=== PATIENT | female | born 1975 | race Caucasian/White ===

== ENCOUNTER 2017-09-24 15:29 | Inpatient (IN) | payer MEDICAID ==
[~2017-09-24] VITALS: Ht 160 cm; Wt 108.9 kg
[2017-09-24] MEDS ORDERED: NEUR300C (16:09)
[2017-09-24] MEDS ORDERED: DIVA500T3 (16:09)
[2017-09-24] MEDS ORDERED: REME15TA (16:09)
[2017-09-24] MEDS ORDERED: PRAZ1CAP (16:09)
[2017-09-24] MEDS ORDERED: RISP2TAB32 (16:09)
[2017-09-24] MEDS ORDERED: MAALOX 30 ML SUSP *UDC PO PRN (18:00)
[2017-09-24] MEDS ORDERED: MOM 30ML SUSPENSION UDC PO PRN (18:00)
[2017-09-24] MEDS ORDERED: traZODone 50 MG TAB PO PRN (18:00)
[2017-09-24 18:53] VITALS: BP 111/70
[2017-09-24] MEDS ORDERED: LEVO25TA34 PO (19:08)
[2017-09-24] MEDS ORDERED: IPRASOL4 INH (19:08)
[2017-09-24] MEDS ORDERED: FLUT11IN INH (19:08)
[2017-09-24] MEDS ORDERED: NYST1POW9 TOP (19:08)
[2017-09-24] MEDS ORDERED: VITA200015 PO (19:08)
[2017-09-24] MEDS ORDERED: BUDE0.5S6 INH (19:08)
[2017-09-24] MEDS ORDERED: ATOR1TAB19 PO (19:08)
[2017-09-24] MEDS ORDERED: HYDR-3363 PO (19:08)
[2017-09-24] MEDS ORDERED: OMEP20CA3 PO (19:08)
[2017-09-24] MEDS ORDERED: TRAZ-136 PO (19:08)
[2017-09-24] MEDS ORDERED: MONT10TA2 PO (19:08)
[2017-09-24] MEDS ORDERED: LORA10TA2 PO (19:08)
[2017-09-24] MEDS ORDERED: RISP2TAB3 PO (19:11)
[2017-09-24] MEDS ORDERED: DIVA500T3 PO (19:11)
[2017-09-24] MEDS ORDERED: GABA-282 PO (19:11)
[2017-09-24] MEDS ORDERED: PRAZ2CAP PO (19:11)
[2017-09-24] MEDS ORDERED: MIRT15TA3 PO (19:11)
[2017-09-25 06:42] VITALS: BP 116/59
[2017-09-25] MEDS ORDERED: IPRATROPIUM 0.5MG/ALBUTEROL 2.5MG INH SOL UD 3ML (DUONEB)(J7620) NEB PRN (08:15)
--- NOTE | 2017-09-25 08:18 | HPEPDOC ---
[facility] Medical History & Physical Date of Admission Sep 24, 2017 History and Physical PCP: Dr Mono [facility] ATTENDING: Dr. Lawrence Hook HPI: 42yoF transferred from [place] to [facility], transferred to [facility] and [facility] for unspecified depressive disorder, being medically examined today. Pt had reported blood in her stool apparently as per records at [place], however stool was brown and heme negative. Pt states she had some constipation which is now resolved. Patient states that 2 weeks ago she experienced cold symptoms. Patient states during her admission 09/11/17 at [facility] she was treated with Zithromax , she states she completed the course of Zithromax prior to her discharge from that facility. She denies fevers or chills. No chest discomfort. She denies shortness of breath. She denies nasal drainage, sore throat, ear discomfort. She states she has had a persistent cough. This is nonproductive, she denies any sputum. Patient states she takes Depakote and gabapentin for her mood. Denies any fevers, chills, weakness, fatigue, NAVAS, CP, SOB, cough, palpitations, abdominal pain, N/V/D or changes in bowel or bladder habits. PMHx: Schizophrenia Bipolar disorder Psychosis Anxiety Depression History of SI History of recurrent UTI. Seen by [facility] urology in the past Asthma Hypothyroid Edentulous Dyslipidemia GERD Obesity. BMI 42.5 PSHX: Cholecystectomy Hernia repair 2 Right knee surgery 4 2 Hysterectomy SOCHX: Resides in: [facility] Marital Status: Single Kids: 2 Employment: Unemployed Tobacco use: Denies ETOH: Denies Illicit Drugs: Denies IV Drug Use: Denies Tattoos done unprofessionally: Denies FAMHX: Mother: , COPD Father: , unknown Siblings: 2 brothers, 4 sisters Alive, history of depression Children: Alive, depression Unexpected deaths due to medical reasons: None. ROS: As noted in HPI, otherwise 11pt ROS of systems reviewed and remarkable only for LMP NA, hysterectomy. PE: GEN: 42 yo F, appears stated age. Alert and oriented x 3. Does not make eye contact. HEENT: Normocephalic, atraumatic. Pupils are equal, round, and reactive to light. Extraocular movements are intact. No nystagmus appreciated. Sclera are nonicteric. Conjunctiva without injection. Nose midline. Nasal turbinates without bogginess. EACs both patent BL. TMs both visualized and kowalski with good cone of light, no bulging or erythema. No facial asymmetry. Moist mucous membranes. edentulous. Pharynx pink and moist, no cobblestoning. Neck supple, trachea midline. No lymphadenopathy or thyromegaly appreciated. CHEST: Regular rate and rhythm, +S1, +S2 LUNGS: Clear to auscultation bilaterally. No wheezes are noted at this time. No rales, or rhonchi. Breathing appears symmetric and easy. Patient is speaking in full sentences. No accessory muscle use. ABD: Round, soft, non-tender, non-distended. +Bowel sounds throughout. No rebound or guarding. No costovertebral angle tenderness. EXT: Pulses 2+ bilaterally dorsalis pedis and radial. No lower extremity edema appreciated. SKIN: [place], dry, warm. Capillary refill <2sec. No rashes. NEURO: Alert and oriented x 3. Cranial nerves III-XII are intact. No focal deficits appreciated. [facility]: EKG: SR, poss prior IWMI, 86 bpm. WBC 7.02 Hgb 12.4 Hct 39.1 Plt 273 Gluc 89 BUN 18 SCr 0.77 Na 144. K 4.1 Cl 104 Ca 8.4 AST 20 ALT 25 Toxicology unremarkable UA neg HCG neg OB neg A&P: 42yoF transferred from [facility] for unspecified depressive disorder, 1. Psych. Plan per Psychiatry. EKG on file. 2. Dyslipidemia. Continue Lipitor 10 mg daily. 3. Asthma. Patient with recent URI, she has completed a course of Zithromax. Update CBC/ CMP. Request chest x-ray. Request sputum culture. Patient has been afebrile. O2 sats have been 96-97% since her arrival on room air. She has no wheezing currently. Avoid additional antibiotics at this time. Request Flovent 2 puffs twice a day scheduled, (as per list, patient previously taking as needed). Continue Singulair 10 mg daily. DuoNeb every 4 and every 2 hours as needed. Encourage incentive spirometry. 4. Allergic rhinitis. Continue Claritin 10 mg daily. Add Flonase 2 sprays each nostril daily. 5. Follow up. No Primary Care Provider. Will attempt to establish PCP on discharge. 6. GERD. Continue PPI. 7. Constipation. Continue Colace BID. 8. Borderline EKG. Pt is asymptomatic at this time. Oupt F/U with PCP. 9. Hypothyroid. Continue supplement. Add TSH to labs. 10. Staff member Analilia MCNULTY present throughout exam. Vital Signs Vital Signs Date Time Temp Pulse Resp B/P (MAP) Pulse Ox O2 Delivery O2 Flow Rate FiO2 09/25/17 06:42 97.2 60 14 116/59 (78) Room Air 09/24/17 18:22 96 Home Medications Scheduled (Risperidone) 2 Mg Tab, 2 MG PO BID for . Atorvastatin Calcium (Atorvastatin Calcium) 10 Mg Tab, 10 MG PO DAILY for . HAS NOT FILLED SINCE 08/04/17 Cholecalciferol (Vitamin D) 2,000 Unit Tab, 2,000 UNIT PO DAILY for . Divalproex Sodium (Divalproex Sodium Dr) 500 Mg Tab, 500 MG PO BID for . Gabapentin (Gabapentin) 300 Mg Cap, 300 MG PO TID for . Levothyroxine Sodium (Levoxyl) 25 Mcg Tab, 25 MCG PO DAILY for . HAS NOT FILLED SINCE 08/04/17 Loratadine (Loratadine) 10 Mg Tab, 10 MG PO DAILY for . NEW RX FROM MD ON 09/10/17, PATIENT HAS NOT PICKED UP Mirtazapine (Mirtazapine) 15 Mg Tab, 30 MG PO QHS for . Montelukast Sodium (Montelukast Sodium) 10 Mg Tab, 10 MG PO DAILY for . NEW RX FROM MD ON 09/10/17, PATIENT HAS NOT PICKED UP Omeprazole (Omeprazole) 20 Mg Cap, 20 MG PO DAILY for . HAS NOT FILLED SINCE 08/04/17 Prazosin Hcl (Prazosin HCl) 2 Mg Cap, 2 MG PO QHS for . Scheduled PRN Albuterol/Ipratropium (Ipratropium [place]/Albut 0.5-2.5 (3) mg/3Ml) 1 Latoya Latoya, 1 LATOYA INH QID PRN for SHORTNESS OF BREATH NEW RX FROM MD ON 09/10/17, PATIENT HAS NOT PICKED UP Budesonide (Budesonide) 0.5 Mg/2 Ml Neb, 0.5 MG INH DAILY PRN for SHORTNESS OF BREATH NEW RX FROM MD ON 09/10/17, PATIENT HAS NOT PICKED UP Fluticasone Propionate (Flovent Hfa) 110 Mcg/Act Aer, 2 MCG INH Q12H PRN for SHORTNESS OF BREATH Hydroxyzine HCl (Hydroxyzine HCl) 25 Mg Tab, 25 MG PO BID PRN for ANXIETY Nystatin (Nystatin Powder) 100,000 Unit/Gm Pow, 1 DOSE TOP BID PRN for RASH/ ITCHING Trazodone HCl (Trazodone HCl) 100 Mg Tab, 100 MG PO DAILY PRN for SLEEP Allergies Coded Allergies: Penicillins (Verified Allergy, Intermediate, rash, 09/24/17) Ewelina Workman Sep 25, 2017 08:18
[2017-09-25] MEDS: IPRATROPIUM 0.5MG/ALBUTEROL 2.5MG INH SOL UD 3ML (DUONEB)(J7620) NEB SCH ×4 (09:15→20:00)
--- NOTE | 2017-09-25 09:21 | REP ---
Clinical: Cough . Comparison: None . Technique: PA and lateral. Findings: The mediastinum and cardiac silhouette are normal. The lung osman suggest trace left basilar atelectasis without consolidation, effusion, or pneumothorax. The skeletal structures are intact and normal. Impression: Trace left basilar atelectasis. Signed by Santos Diaz MD 09/25/2017 09:11 A
[2017-09-25 09:46] LABS: MEAN CORPUSCULAR HEMOGLOBIN 30.2 pg (27.0-33.0); MEAN CORPUSCULAR HGB CONC 32.1 g/dl (32.0-36.5); MEAN CORPUSCULAR VOLUME 93.8 fl (80.0-96.0); PLATELET COUNT, AUTOMATED 269 10^3/uL (150-450); RED CELL DISTRIBUTION WIDTH 13.2 % (11.5-14.5)
[2017-09-25] MEDS: ATORVASTATIN 10 MG TAB PO SCH (09:53)
[2017-09-25] MEDS: VITAMIN D 1,000 INTERNATIONAL UNITS TABLET PO SCH (09:53)
[2017-09-25] MEDS: LORATADINE 10 MG TAB PO SCH (09:54)
[2017-09-25] MEDS: DOCUSATE SODIUM 100 MG CAP PO SCH ×2 (09:54→21:00)
[2017-09-25] MEDS: OMEPRAZOLE 20 MG CAP PO SCH (09:54)
[2017-09-25] MEDS: MONTELUKAST 10 MG TAB PO SCH (09:54)
[2017-09-25] MEDS: FLUTICASONE HFA 110 MCG 12 GM INHALER (FLOVENT) INH SCH ×2 (09:58→21:00)
[2017-09-25 10:08] LABS: ALBUMIN/GLOBULIN RATIO 0.97 (1.00-1.93); ALKALINE PHOSPHATASE 47 U/L (45-117); ALT/SGPT 45 U/L (12-78); ANION GAP 6 MEQ/L (8-16); AST/SGOT 29 U/L (7-37); BILIRUBIN,TOTAL 0.4 MG/DL (0.2-1.0); BLOOD UREA NITROGEN 18 MG/DL (7-18); CALCIUM LEVEL 8.8 MG/DL (8.5-10.1); CARBON DIOXIDE LEVEL 30 MEQ/L (21-32); CHLORIDE LEVEL 108 MEQ/L (98-107); CREATININE FOR GFR 0.73 MG/DL (0.55-1.02); GLOMERULAR FILTRATION RATE > 60.0 (>58); GLUCOSE, FASTING 121 MG/DL (70-105); POTASSIUM SERUM 4.1 MEQ/L (3.5-5.1); SODIUM LEVEL 144 MEQ/L (136-145); TOTAL PROTEIN 6.1 GM/DL (6.4-8.2)
[2017-09-25] MEDS ORDERED: hydrOXYzine 25 MG TAB PO PRN (10:45)
--- NOTE | 2017-09-25 11:07 | MHHPE ---
DATE OF ADMISSION: 09/24/2017 LEGAL STATUS AT ADMISSION: 9.39 legal status. CHIEF COMPLAINT: "I've been feeling very depressed, and I have suicidal thoughts." HISTORY OF PRESENT ILLNESS: 42 years old, female, with history of depression and learning disabilities, admitted to our unit on a 9.39 legal status. According to the record, the patient was transferred from [facility] after she was evaluated there and needed psychiatric admission. They had no beds. The patient reports during admission that has been feeling depressed with frequent suicidal ideation, low energy, insomnia, very anxious and distressed. The patient says that she was discharged from [facility] on September 22. Says that she went to stay with a "supposed to be friend" but then "When I arrived there, they told me that the CPS worker was not going to allow me to stay there." Apparently, she threatened to kill herself in front of a baby. During the interview, there is no evidence of psychotic symptoms. No auditory or visual hallucinations or delusions. The patient says that has been admitted quite a few times and that she is getting in and out of the hospital because of the suicidal thoughts. The patient is on Neurontin 300 mg by mouth three times a day, Depakote 500 mg by mouth twice a day, Remeron 30 mg by mouth nightly, Risperdal 2 mg by mouth twice a day, prazosin 2 mg by mouth nightly, trazodone 100 mg by mouth nightly as needed for insomnia, and hydroxyzine 25 mg by mouth twice a day as needed for anxiety. PAST MEDICAL HISTORY: The patient has been diagnosed of hypothyroidism, asthma, dyslipidemia, gastroesophageal reflux disease (GERD), and recurrent urinary tract infection (UTI). PAST PSYCHIATRIC HISTORY: As above. The patient has been diagnosed of depression and learning disabilities. She was in a special education. FAMILY HISTORY: The patient reports her sister and daughter have depression. SUBSTANCE ABUSE HISTORY: The patient denies any current or past problems with drugs or alcohol. SOCIAL HISTORY: The patient was raised by her aunt since her parents were in residential in and out. The patient denies any abuse or neglect during childhood. The patient was in special education. Says "I was a slow learner." She was never tested for intelligence quotient (IQ). The patient is on Supplemental Security Income (SSI) and is currently homeless. PSYCHIATRIC REVIEW OF SYSTEMS: Bipolar disorder/kaya: No evidence of destructibility, grandiosity, flight of ideas, or pressured speech. Substance abuse disorder: The cut down, annoyance, guilt, eyeopener (CAGE) questionnaire is negative. Anxiety disorder: The patient has anxiety but denies panic, agoraphobia, obsessive-compulsive disorder (OCD), washing hands repeatedly, or checking things over and over. Somatization disorder: Screening for pain, conversion, gastrointestinal (GI), or sexual symptoms is negative. Eating disorder: Screening for dieting, use of laxatives, eating in binges is negative. Cognitive disorder: The patient is a "slow learner." Psychotic disorder: No evidence of delusions, paranoia, grandiosity, or rastafari preoccupation. No hallucination. No looseness of associations. PHYSICAL EXAMINATION: As per physician assistant business manager. LABORATORIES AT ADMISSION: Her CBC showed RBC of 3.88 and hemoglobin of 11.7. The rest within normal limits. CMP is unremarkable except total protein is 6.1, albumin is 3.0. MENTAL STATUS EXAMINATION: The patient is dressed in [facility]. The patient is calm and cooperative. Her speech is soft and monotone. Has poor eye contact. Mood is depressed and anxious. Affect is blunted and restricted. The patient is oriented to time, place, person, and situation. Maintains attention and concentration correctly. Instant recall, recent and remote memory are intact. Thought processes are coherent, logical, and goal-directed. The patient does not have auditory or visual hallucination. The patient does not have paranoid, persecutory, somatic, grandiose, or rastafari delusions. The patient denies homicidal ideations. Reports intermittent suicidal thought. Judgment and insight are limited. DIAGNOSES: [place] I: Unspecified depressive disorder. Rule out major depression. [place] II: Learning disability. [place] III: Hypothyroidism. Asthma. Dyslipidemia. Gastroesophageal reflux disease (GERD). Recurrent urinary tract infection (UTI). INITIAL TREATMENT PLAN: The patient was admitted on a 9.39 legal status. Complete history was obtained. With her permission, family will be contacted, and database will be expanded. Her medication regimen will be reviewed and changed accordingly. She will be treated with individual, group, and milieu therapies. She will also receive supportive psychoeducation. Discharge planning will commence immediately. Length of stay will be between 5 and 7 days. Outpatient followup will be strongly recommended. The treatment plan will focus initially on depression and risk for suicide.
[2017-09-25] MEDS: FLUTICASONE PROP 0.05% NASAL SPRAY 16 GM (FLONASE) SCH (11:33)
[2017-09-25] MEDS: LEVOTHYROXINE 25MCG TABLET (0.025MG) PO SCH (11:33)
[2017-09-25] MEDS: risperiDONE 1 MG TAB PO SCH ×2 (11:34→21:00)
[2017-09-25] MEDS: GABAPENTIN 300 MG CAP PO SCH ×3 (11:34→21:00)
[2017-09-25] MEDS: lamoTRIgine 25 MG TAB PO SCH ×2 (11:35→21:00)
[2017-09-25] MEDS: traZODone 100 MG TAB PO SCH (21:00)
[2017-09-25] MEDS: MIRTAZAPINE 15 MG TAB PO SCH (21:00)
[2017-09-25] MEDS: PRAZOSIN 1 MG CAP PO SCH (21:00)
[2017-09-25 21:16] VITALS: BP 118/75
[2017-09-26] MEDS: LEVOTHYROXINE 25MCG TABLET (0.025MG) PO SCH (05:44)
--- NOTE | 2017-09-26 08:34 | IPNPDOC ---
Date Seen The patient was seen on 09/26/17. Progress Note PCP: Dr Mono CROWDER ATTENDING: Dr. Lawrence Hook HPI: 42yoF transferred from [place] to [facility], transferred to [facility] and [facility] for unspecified depressive disorder, being medically examined today. Pt had reported blood in her stool apparently as per records at [place], however stool was brown and heme negative. Pt states she had some constipation which is now resolved. Patient states that 2 weeks ago she experienced cold symptoms. Patient states during her admission 09/11/17 at [facility] she was treated with Zithromax , she states she completed the course of Zithromax prior to her discharge from that facility. She denies fevers or chills. No chest discomfort. She denies shortness of breath. She denies nasal drainage, sore throat, ear discomfort. She states she has had a persistent course cough. This is nonproductive, she denies any sputum. Patient states she takes Depakote and gabapentin for her mood. Denies any fevers, chills, weakness, fatigue, NAVAS, CP, SOB, palpitations, abdominal pain, N/V/D or changes in bowel or bladder habits. PMHx: Schizophrenia Bipolar disorder Psychosis Anxiety Depression History of SI History of recurrent UTI. Seen by [facility] urology in the past Asthma Hypothyroid Edentulous Dyslipidemia GERD Obesity. BMI 42.5 PSHX: Cholecystectomy Hernia repair 2 Right knee surgery 4 2 Hysterectomy PE: GEN: 42 yo F, appears stated age. Alert and oriented x 3. Does not make eye contact. HEENT: Normocephalic, atraumatic. Sclera are nonicteric. Conjunctiva without injection. Nose midline. No facial asymmetry. Moist mucous membranes. edentulous. Pharynx pink and moist. Neck supple, trachea midline. No lymphadenopathy or thyromegaly appreciated. CHEST: Regular rate and rhythm, +S1, +S2 LUNGS: Pt has good A/E. Course cough is noted this AM, rhonchi noted which clear with cough. No wheezes. No rales. Breathing appears symmetric and easy. Patient is speaking in full sentences. No accessory muscle use. ABD: Round, soft, non-tender, non-distended. +Bowel sounds throughout. No rebound or guarding. No costovertebral angle tenderness. EXT: Pulses 2+ bilaterally dorsalis pedis and radial. No lower extremity edema appreciated. SKIN: [place], dry, warm. Capillary refill <2sec. No rashes. NEURO: No focal deficits appreciated. [facility]: EKG: SR, poss prior IWMI, 86 bpm. WBC 7.02 Hgb 12.4 Hct 39.1 Plt 273 Gluc 89 BUN 18 SCr 0.77 Na 144. K 4.1 Cl 104 Ca 8.4 AST 20 ALT 25 Toxicology unremarkable UA neg HCG neg OB neg CXR 09/25/17 Trace left basilar atelectasis. A&P: 42yoF transferred from [facility] for unspecified depressive disorder, 1. Psych. Plan per Psychiatry. EKG on file. 2. Dyslipidemia. Continue Lipitor 10 mg daily. 3. Asthma. Patient with recent URI, Pt states she has completed a course of Zithromax. CBC/CMP 09/25 no leukocytosis. chest x-ray 09/25 as above. Sputum culture not yet obtained. Pt is refusing VS this AM, Tmax 100.3 last PM. 2/4 nebs completed yesterday. Refused 1/2 doses of Flovent. O2 sats have been 96-97% since her arrival on room air. Request Flovent 2 puffs twice a day scheduled, (as per list, patient previously taking as needed). Encourage compliance. Continue Singulair 10 mg daily. DuoNeb every 4 and every 2 hours as needed. Encourage incentive spirometry. Request Respiratory panel. Update labs in AM. Add Doxycycline 100mg po BID x 10 days. (PCN allergic). 4. Allergic rhinitis. Continue Claritin 10 mg daily. Add Flonase 2 sprays each nostril daily. 5. Follow up. No Primary Care Provider. Will attempt to establish PCP on discharge. 6. GERD. Continue PPI. 7. Constipation. Continue Colace BID. 8. Borderline EKG. Pt is asymptomatic at this time. Oupt F/U with PCP. 9. Hypothyroid. Continue supplement. TSH WNL. 10. Staff member Hermelindo present throughout exam. VS, I&O, 24H, Fishbone Vital Signs/I&O Vital Signs Date Time Temp Pulse Resp B/P (MAP) Pulse Ox O2 Delivery O2 Flow Rate FiO2 09/25/17 21:16 100.3 93 16 118/75 (89) 09/25/17 06:42 Room Air 09/24/17 18:22 96 Laboratory Data 24H LABS Laboratory Tests 2 09/25/17 09:21: Nucleated Red Blood Cells % (auto) 0.0, Anion Gap 6L, Glomerular Filtration Rate > 60.0, Blood Urea Nitrogen 18, Creatinine 0.73, Sodium Level 144, Potassium Level 4.1, Chloride Level 108H, Carbon Dioxide Level 30, Calcium Level 8.8, Aspartate Amino Transf (AST/SGOT) 29, Alanine Aminotransferase (ALT/ SGPT) 45, Alkaline Phosphatase 47, Total Bilirubin 0.4, Total Protein 6.1L, Albumin 3.0L, Albumin/Globulin Ratio 0.97L, Thyroid Stimulating Hormone (TSH) 2.630 CBC/BMP Laboratory Tests 09/25/17 09:21 Red Blood Count 3.88 L, Mean Corpuscular Volume 93.8, Mean Corpuscular Hemoglobin 30.2, Mean Corpuscular Hemoglobin Concent 32.1, Red Cell Distribution Width 13.2, Calcium Level 8.8, Aspartate Amino Transf (AST/SGOT) 29 , Alanine Aminotransferase (ALT/SGPT) 45, Alkaline Phosphatase 47, Total Bilirubin 0.4, Total Protein 6.1 L, Albumin 3.0 L Ewelina Workman Sep 26, 2017 08:34
[2017-09-26] MEDS: MONTELUKAST 10 MG TAB PO SCH (08:42)
[2017-09-26] MEDS: FLUTICASONE PROP 0.05% NASAL SPRAY 16 GM (FLONASE) SCH (08:42)
[2017-09-26] MEDS: GABAPENTIN 300 MG CAP PO SCH ×3 (08:42→22:01)
[2017-09-26] MEDS: LORATADINE 10 MG TAB PO SCH (08:42)
[2017-09-26] MEDS: DOCUSATE SODIUM 100 MG CAP PO SCH ×2 (08:42→22:01)
[2017-09-26] MEDS: VITAMIN D 1,000 INTERNATIONAL UNITS TABLET PO SCH (08:42)
[2017-09-26] MEDS: ATORVASTATIN 10 MG TAB PO SCH (08:42)
[2017-09-26] MEDS: lamoTRIgine 25 MG TAB PO SCH ×2 (08:42→22:01)
[2017-09-26] MEDS: risperiDONE 1 MG TAB PO SCH ×2 (08:42→22:01)
[2017-09-26] MEDS: OMEPRAZOLE 20 MG CAP PO SCH (08:42)
[2017-09-26] MEDS: FLUTICASONE HFA 110 MCG 12 GM INHALER (FLOVENT) INH SCH ×2 (08:43→22:02)
[2017-09-26] MEDS: DOXYCYCLINE HYCLATE 100 MG TAB PO SCH ×2 (09:33→22:01)
[2017-09-26] MEDS: IPRATROPIUM 0.5MG/ALBUTEROL 2.5MG INH SOL UD 3ML (DUONEB)(J7620) NEB SCH ×4 (09:46→19:53)
--- NOTE | 2017-09-26 15:28 | MHIPN ---
DATE: 09/26/2017 HISTORY: A 42-year-old female with a history of depression and learning disability, admitted for depression and suicidal ideation. MEDICATIONS: - Remeron 30 mg by mouth at bedtime - prazosin 2 mg by mouth at bedtime - trazodone 100 mg by mouth at bedtime - Neurontin 300 mg by mouth three times a day - Risperdal 1 mg by mouth twice a day - Lamictal 25 mg by mouth twice a day SUBJECTIVE: "I'm feeling better." OBJECTIVE: Patient has somewhat improved from yesterday. Patient is interacting with other patients and staff and going to the psychotherapeutic activities. There is no evidence of psychotic symptoms. No auditory or visual hallucinations or delusions. MENTAL STATUS EXAMINATION: Patient dressed in [facility]. Patient is cooperative. Patient continues depressed and anxious but improved from admission. No evidence of delusions. No hallucinations. Memory, attention, and concentration are fair in the context of a learning disability. Insight and judgment are limited. ASSESSMENT: 1. Depression. 2. Suicidal ideation. 3. Learning disability. PLAN: 1. Continue with Remeron 30 mg by mouth by mouth at bedtime. 2. Prazosin 2 mg by mouth at bedtime. 3. Trazodone 100 mg by mouth at bedtime. 4. Neurontin 300 mg by mouth three times a day. 5. Risperdal 1 mg by mouth twice a day. 6. Lamictal 25 mg by mouth twice a day.
[2017-09-26 18:00] VITALS: BP 107/58
[2017-09-26] MEDS: MIRTAZAPINE 15 MG TAB PO SCH (22:01)
[2017-09-26] MEDS: traZODone 100 MG TAB PO SCH (22:01)
[2017-09-26] MEDS: PRAZOSIN 1 MG CAP PO SCH (22:02)
[2017-09-27] MEDS: LEVOTHYROXINE 25MCG TABLET (0.025MG) PO SCH (06:19)
[2017-09-27 06:44] LABS: MEAN CORPUSCULAR HEMOGLOBIN 30.1 pg (27.0-33.0); MEAN CORPUSCULAR HGB CONC 32.1 g/dl (32.0-36.5); MEAN CORPUSCULAR VOLUME 93.5 fl (80.0-96.0); PLATELET COUNT, AUTOMATED 274 10^3/uL (150-450); RED CELL DISTRIBUTION WIDTH 13.2 % (11.5-14.5); WHITE BLOOD COUNT 7.4 10^3/uL (4.0-10.0)
[2017-09-27 06:49] VITALS: BP 103/53
[2017-09-27 07:21] LABS: ALBUMIN/GLOBULIN RATIO 0.94 (1.00-1.93); ALKALINE PHOSPHATASE 75 U/L (45-117); ALT/SGPT 34 U/L (12-78); ANION GAP 7 MEQ/L (8-16); AST/SGOT 15 U/L (7-37); BILIRUBIN,TOTAL 0.2 MG/DL (0.2-1.0); BLOOD UREA NITROGEN 14 MG/DL (7-18); CALCIUM LEVEL 8.3 MG/DL (8.5-10.1); CARBON DIOXIDE LEVEL 29 MEQ/L (21-32); CHLORIDE LEVEL 111 MEQ/L (98-107); CREATININE FOR GFR 0.66 MG/DL (0.55-1.02); GLOMERULAR FILTRATION RATE > 60.0 (>58); GLUCOSE, FASTING 123 MG/DL (70-105); POTASSIUM SERUM 3.9 MEQ/L (3.5-5.1); SODIUM LEVEL 147 MEQ/L (136-145); TOTAL PROTEIN 6.2 GM/DL (6.4-8.2)
[2017-09-27] MEDS: IPRATROPIUM 0.5MG/ALBUTEROL 2.5MG INH SOL UD 3ML (DUONEB)(J7620) NEB SCH ×4 (07:52→20:00)
[2017-09-27] MEDS: DOCUSATE SODIUM 100 MG CAP PO SCH ×2 (09:16→20:18)
[2017-09-27] MEDS: GABAPENTIN 300 MG CAP PO SCH ×3 (09:16→20:18)
[2017-09-27] MEDS: VITAMIN D 1,000 INTERNATIONAL UNITS TABLET PO SCH (09:16)
[2017-09-27] MEDS: lamoTRIgine 25 MG TAB PO SCH ×2 (09:17→20:19)
[2017-09-27] MEDS: DOXYCYCLINE HYCLATE 100 MG TAB PO SCH ×2 (09:17→20:19)
[2017-09-27] MEDS: LORATADINE 10 MG TAB PO SCH (09:17)
[2017-09-27] MEDS: ATORVASTATIN 10 MG TAB PO SCH (09:17)
[2017-09-27] MEDS: FLUTICASONE HFA 110 MCG 12 GM INHALER (FLOVENT) INH SCH ×2 (09:18→20:18)
[2017-09-27] MEDS: FLUTICASONE PROP 0.05% NASAL SPRAY 16 GM (FLONASE) SCH (09:18)
[2017-09-27] MEDS: MONTELUKAST 10 MG TAB PO SCH (09:27)
[2017-09-27] MEDS: OMEPRAZOLE 20 MG CAP PO SCH (09:28)
[2017-09-27] MEDS: risperiDONE 1 MG TAB PO SCH ×2 (09:28→20:18)
--- NOTE | 2017-09-27 15:19 | MHIPN ---
DATE: 09/27/2017 CHIEF COMPLAINT: Says feels good. SUBJECTIVE: Seen for followup. This is in the presence of staff. Says feels good. Moods are better. She is looking forward to leaving in a couple of days. Says now has a place and looks forward to going there. Moods are better. MENTAL STATUS EXAMINATION: She is lying in bed. She is cooperative. No agitation. No psychomotor retardation. She is coherent. Affect is reactive, fairly broad. Currently denies any suicidal thoughts or intents. There are no overt psychotic features elicited at this point. Judgment and insight fair. ASSESSMENT: 1. Other specified depressive disorder. 2. Learning disability. PLAN: Continue current care and observation. Encourage participate in activities in the unit.
[2017-09-27 18:00] VITALS: BP 104/56
[2017-09-27] MEDS: traZODone 100 MG TAB PO SCH (20:19)
[2017-09-27] MEDS: MIRTAZAPINE 15 MG TAB PO SCH (20:19)
[2017-09-27] MEDS: PRAZOSIN 1 MG CAP PO SCH (20:19)
[2017-09-27] MEDS: ACETAMINOPHEN TAB 650MG DOSE (2X325MG) PO PRN (22:03)
[2017-09-28] MEDS: LEVOTHYROXINE 25MCG TABLET (0.025MG) PO SCH (06:08)
[2017-09-28 06:36] VITALS: BP 110/64
[2017-09-28] MEDS: IPRATROPIUM 0.5MG/ALBUTEROL 2.5MG INH SOL UD 3ML (DUONEB)(J7620) NEB SCH ×4 (08:00→20:00)
[2017-09-28] MEDS: FLUTICASONE PROP 0.05% NASAL SPRAY 16 GM (FLONASE) SCH (09:35)
[2017-09-28] MEDS: FLUTICASONE HFA 110 MCG 12 GM INHALER (FLOVENT) INH SCH ×2 (09:35→21:40)
[2017-09-28] MEDS: MONTELUKAST 10 MG TAB PO SCH (09:36)
[2017-09-28] MEDS: DOCUSATE SODIUM 100 MG CAP PO SCH ×2 (09:36→21:39)
[2017-09-28] MEDS: VITAMIN D 1,000 INTERNATIONAL UNITS TABLET PO SCH (09:36)
[2017-09-28] MEDS: GABAPENTIN 300 MG CAP PO SCH ×3 (09:36→21:39)
[2017-09-28] MEDS: risperiDONE 1 MG TAB PO SCH ×2 (09:36→21:39)
[2017-09-28] MEDS: LORATADINE 10 MG TAB PO SCH (09:36)
[2017-09-28] MEDS: DOXYCYCLINE HYCLATE 100 MG TAB PO SCH ×2 (09:36→21:39)
[2017-09-28] MEDS: OMEPRAZOLE 20 MG CAP PO SCH (09:36)
[2017-09-28] MEDS: lamoTRIgine 25 MG TAB PO SCH ×2 (09:36→21:39)
[2017-09-28] MEDS: ATORVASTATIN 10 MG TAB PO SCH (09:36)
[2017-09-28 18:00] VITALS: BP 100/58
--- NOTE | 2017-09-28 21:11 | MHIPN ---
DATE: 09/28/2017 CHIEF COMPLAINT: Says is okay. SUBJECTIVE: Seen for followup, in the presence of the staff. The patient says she is okay, and is looking forward to being discharged tomorrow, says goes (please clarify). She says had a good night, though had broken sleep. MENTAL STATUS EXAMINATION: She is lying in bed, appears disinterested, answers questions briefly, logically, coherently. Affect is restricted but reactive. No evidence of any thoughts of harming herself or anyone else currently. No evidence of any psychosis. Cognition grossly intact. Judgment and insight fair. ASSESSMENT: Other specified depressive disorder. PLAN: Continue current care. She is hoping to be discharged soon.
[2017-09-28] MEDS: MIRTAZAPINE 15 MG TAB PO SCH (21:39)
[2017-09-28 21:40] VITALS: BP 118/62
[2017-09-28] MEDS: PRAZOSIN 1 MG CAP PO SCH (21:40)
[2017-09-28] MEDS: traZODone 100 MG TAB PO SCH (21:41)
[2017-09-28] MEDS: ACETAMINOPHEN TAB 650MG DOSE (2X325MG) PO PRN (23:43)
[2017-09-29] MEDS: LEVOTHYROXINE 25MCG TABLET (0.025MG) PO SCH (06:19)
[2017-09-29 07:00] VITALS: BP 97/54
[2017-09-29] MEDS: IPRATROPIUM 0.5MG/ALBUTEROL 2.5MG INH SOL UD 3ML (DUONEB)(J7620) NEB SCH ×3 (08:00→16:00)
[2017-09-29] MEDS: FLUTICASONE PROP 0.05% NASAL SPRAY 16 GM (FLONASE) SCH (08:29)
[2017-09-29] MEDS: ATORVASTATIN 10 MG TAB PO SCH (08:30)
[2017-09-29] MEDS: GABAPENTIN 300 MG CAP PO SCH ×2 (08:30→15:33)
[2017-09-29] MEDS: VITAMIN D 1,000 INTERNATIONAL UNITS TABLET PO SCH (08:30)
[2017-09-29] MEDS: lamoTRIgine 25 MG TAB PO SCH (08:30)
[2017-09-29] MEDS: risperiDONE 1 MG TAB PO SCH (08:30)
[2017-09-29] MEDS: FLUTICASONE HFA 110 MCG 12 GM INHALER (FLOVENT) INH SCH (08:30)
[2017-09-29] MEDS: OMEPRAZOLE 20 MG CAP PO SCH (08:30)
[2017-09-29] MEDS: DOCUSATE SODIUM 100 MG CAP PO SCH (08:30)
[2017-09-29] MEDS: MONTELUKAST 10 MG TAB PO SCH (08:30)
[2017-09-29] MEDS: LORATADINE 10 MG TAB PO SCH (08:30)
[2017-09-29] MEDS: DOXYCYCLINE HYCLATE 100 MG TAB PO SCH (08:32)
[2017-09-29] MEDS ORDERED: MIRT15TA3 PO (10:46)
[2017-09-29] MEDS ORDERED: GABA-282 PO (10:46)
[2017-09-29] MEDS ORDERED: RISP1TAB42 PO (10:46)
[2017-09-29] MEDS ORDERED: MINI1CAP PO (10:46)
[2017-09-29] MEDS: ACETAMINOPHEN TAB 650MG DOSE (2X325MG) PO PRN (10:49)
--- NOTE | 2017-09-29 18:22 | MHDS ---
DATE OF ADMISSION: 09/24/2017 DATE OF DISCHARGE: 09/29/2017 LEGAL STATUS AT ADMISSION: 9.39 legal status. HISTORY OF PRESENT ILLNESS: A 42-year-old female with history of depression and learning disabilities, admitted to our unit on a 9.39 legal status. According to the record, the patient was transferred from [facility] after she was evaluated there and in need of psychiatric admission. They had no beds. The patient reports during admission that she has been feeling depressed with frequent suicidal ideation, low energy, insomnia, very anxious, and distressed. The patient says that she was discharged from [facility] on 09/22/2017. She says that she went to live with a "supposed to be friend," but then "when I arrived they told me that CPS worker was not going to allow me to stay there." Apparently, she threatened to kill herself in front of a baby. During the interview, there is no evidence of psychotic symptoms. No auditory or visual hallucinations or delusions. The patient says that she has been admitted quite a few times and that she is getting in-and-out of hospital because of her suicidal thoughts. The patient is on Neurontin 300 mg by mouth three times a day, Depakote 500 mg by mouth twice a day, Remeron 30 mg by mouth at bedtime, Risperdal 2 mg by mouth twice a day, Prazosin 2 mg by mouth at bedtime, trazodone 100 mg by mouth at bedtime as needed for insomnia, and hydroxyzine 25 mg by mouth twice a day as needed for anxiety. LABORATORY DATA AT ADMISSION: Her CBC showed red blood cells of 3.88 and hemoglobin 11.7. CMP was unremarkable, although her total protein was 6.1 and albumin was 3.0. TSH within normal limits. HOSPITAL COURSE: After the first evaluation, the patient was started on Remeron 30 mg by mouth at bedtime, Minipress 2 mg by mouth at bedtime, trazodone 100 mg by mouth at bedtime, Neurontin 300 mg by mouth three times a day, Risperdal 1 mg by mouth twice a day, Lamictal 25 mg by mouth twice a day. With the above medications, the patient was stabilized. Her mood recovered rather quickly. The patient had no complications during this hospital admission. Her medical social consultant/geriatric case manager was contacted. Apparently, the patient has been having problems with placement since when she is placed, she has tendency to leave. At the moment of discharge, the patient has no auditory or visual hallucinations, delusions, suicidal or homicidal ideation. The patient has significantly improved from her depression. The patient says that she has been talking to her ex-boyfriend and they agreed that she will be living with him. The patient says that this a relationship that has been on-and-off for quite a long time. Her ex-boyfriend was contacted and he confirmed the information that the patient was giving us. Therefore, at discharge, the patient is in a stable condition and can be managed as outpatient. MEDICATIONS AT DISCHARGE: - Remeron 30 mg by mouth at bedtime - Minipress 2 mg by mouth at bedtime - trazodone 100 mg by mouth at bedtime - Neurontin 300 mg by mouth three times a day - Risperdal 1 mg by mouth twice a day MENTAL STATUS EXAMINATION AT DISCHARGE: The patient is dressed in [facility]. The patient is calm and cooperative. Her speech is clear, coherent with normal rate and is spontaneous. The patient has good eye contact. Mood is euthymic. Affect is appropriate and congruent with mood. The patient is oriented to time, place, person and situation, maintains attention and concentration correctly Instant recall, recent and remote memory are intact. Thought processes are coherent, logical, and goal-directed. The patient does not have auditory or visual hallucinations. The patient does not have paranoid, persecutory, somatic, grandiose, or sabianist delusions. The patient denies suicidal or homicidal ideation. Insight and judgment are fair. DISCHARGE DIAGNOSES: AXIS I: Adjustment disorder with anxious and depressed mood. AXIS II: Learning disability by history. AXIS III: Hypothyroidism. Asthma. Dyslipidemia. Gastroesophageal reflux disease (GERD). Recurrent urinary tract infection (UTI). INSTRUCTIONS TO THE PATIENT: The patient is to continue taking her medications as prescribed and followup appointments. She is advised to maintain absolute sobriety from drugs and alcohol. The patient has scheduled appointment for medication management, individual psychotherapy, and primary care provider.
== END 2017-09-29 16:15 | disposition home or self-care (01) | DRG 755 ==
LOC: M ED 15:29 → M ED INP 17:52 → M PSY 18:47
PROVIDERS: ADMIT Psychiatry & Neurology Psychiatry; ATTEND Psychiatry & Neurology Psychiatry
DX: F43.23 Adjustment disorder with mixed anxiety and depressed mood (principal); F81.9 Developmental disorder of scholastic skills, unspecified; E03.9 Hypothyroidism, unspecified; J45.909 Unspecified asthma, uncomplicated; E78.5 Hyperlipidemia, unspecified; K21.9 Gastro-esophageal reflux disease without esophagitis; Z59.0 Homelessness; Z81.8 Family history of other mental and behavioral disorders; Z87.440 Personal history of urinary (tract) infections; E66.9 Obesity, unspecified; Z68.41 Body mass index [BMI] 40.0-44.9, adult; K59.00 Constipation, unspecified; Z79.899 Other long term (current) drug therapy; Z88.0 Allergy status to penicillin

== ENCOUNTER 2018-04-25 19:07 | Inpatient (IN) | payer MEDICAID ==
[2018-04-25] MEDS: FUROSEMIDE 40 MG TAB PO (20:15)
[2018-04-25] MEDS ORDERED: MOM 30ML SUSPENSION UDC PO (21:00)
[2018-04-26] MEDS ORDERED: IPRATROPIUM HFA INHALER 12.9 GRAMS (ATROVENT HFA) INH (10:00)
[2018-04-26] MEDS: metFORMIN (GLUCOPHAGE) 500 MG TAB PO ×2 (10:39→17:03)
[2018-04-26] MEDS: FLUoxetine 20 MG CAP PO (10:39)
[2018-04-26] MEDS: FUROSEMIDE 40 MG TAB PO ×2 (10:39→17:03)
[2018-04-26] MEDS: OMEPRAZOLE 20 MG CAP PO (10:39)
[2018-04-26] MEDS: LEVOTHYROXINE 25MCG TABLET (0.025MG) PO (11:33)
[2018-04-26] MEDS: oxyBUTYnin 5 MG TAB PO ×2 (11:33→21:05)
[2018-04-26 11:51] LABS: BEDSIDE GLUCOSE 99 MG/DL (70-105)
[2018-04-26] MEDS: ACETAMINOPHEN TAB 650MG DOSE (2X325MG) PO (13:17)
[2018-04-26 16:59] LABS: BEDSIDE GLUCOSE 101 MG/DL (70-105)
[2018-04-26 21:03] LABS: BEDSIDE GLUCOSE 105 MG/DL (70-105)
[2018-04-26] MEDS: ATORVASTATIN 10 MG TAB PO (21:05)
[2018-04-26] MEDS: PRAZOSIN 1 MG CAP PO (21:05)
[2018-04-27] MEDS: LEVOTHYROXINE 25MCG TABLET (0.025MG) PO (06:06)
[2018-04-27 06:17] LABS: BEDSIDE GLUCOSE 101 MG/DL (70-105)
[2018-04-27] MEDS: oxyBUTYnin 5 MG TAB PO (09:14)
[2018-04-27] MEDS: OMEPRAZOLE 20 MG CAP PO (09:14)
[2018-04-27] MEDS: metFORMIN (GLUCOPHAGE) 500 MG TAB PO ×2 (09:14→18:09)
[2018-04-27] MEDS: FLUoxetine 20 MG CAP PO (09:14)
[2018-04-27] MEDS: FUROSEMIDE 40 MG TAB PO ×2 (09:14→18:08)
[2018-04-27 10:27] LABS: HEMATOCRIT 36.8 % (36.0-47.0); HEMOGLOBIN 12.6 g/dl (12.0-15.5); MEAN CORPUSCULAR HEMOGLOBIN 31.9 pg (27.0-33.0); MEAN CORPUSCULAR HGB CONC 34.2 g/dl (32.0-36.5); MEAN CORPUSCULAR VOLUME 93.2 fl (80.0-96.0); PLATELET COUNT, AUTOMATED 404 10^3/uL (150-450); RED BLOOD COUNT 3.95 10^6/uL (4.00-5.40); RED CELL DISTRIBUTION WIDTH 12.7 % (11.5-14.5); WHITE BLOOD COUNT 7.8 10^3/uL (4.0-10.0)
[2018-04-27 10:44] LABS: ESTIMATED AVERAGE GLUCOSE 137 MG/DL (60-110); HEMOGLOBIN A1c 6.4 %
[2018-04-27 11:00] LABS: ALBUMIN 4.1 GM/DL (3.2-5.2); ALBUMIN/GLOBULIN RATIO 1.37 (1.00-1.93); ALKALINE PHOSPHATASE 80 U/L (45-117); ALT/SGPT 22 U/L (12-78); ANION GAP 8 MEQ/L (8-16); AST/SGOT 23 U/L (7-37); BILIRUBIN,TOTAL 0.3 MG/DL (0.2-1.0); BLOOD UREA NITROGEN 12 MG/DL (7-18); CALCIUM LEVEL 8.9 MG/DL (8.5-10.1); CARBON DIOXIDE LEVEL 27 MEQ/L (21-32); CHLORIDE LEVEL 105 MEQ/L (98-107); CREATININE FOR GFR 0.88 MG/DL (0.55-1.30); GLOMERULAR FILTRATION RATE > 60.0 (>58); GLUCOSE, FASTING 104 MG/DL (70-100); POTASSIUM SERUM 4.1 MEQ/L (3.5-5.1); SODIUM LEVEL 140 MEQ/L (136-145); TOTAL PROTEIN 7.1 GM/DL (6.4-8.2)
[2018-04-27 18:18] LABS: BEDSIDE GLUCOSE 121 MG/DL (70-105)
[2018-04-28] MEDS: ATORVASTATIN 10 MG TAB PO ×2 (00:18→20:35)
[2018-04-28] MEDS: oxyBUTYnin 5 MG TAB PO ×3 (00:18→20:35)
[2018-04-28] MEDS: PRAZOSIN 1 MG CAP PO ×2 (00:25→20:37)
[2018-04-28] MEDS: LEVOTHYROXINE 25MCG TABLET (0.025MG) PO (05:51)
[2018-04-28 06:03] LABS: BEDSIDE GLUCOSE 114 MG/DL (70-105)
[2018-04-28] MEDS: metFORMIN (GLUCOPHAGE) 500 MG TAB PO ×2 (07:38→17:00)
[2018-04-28] MEDS: FUROSEMIDE 40 MG TAB PO ×2 (08:10→17:00)
[2018-04-28] MEDS: OMEPRAZOLE 20 MG CAP PO (08:11)
[2018-04-28] MEDS: FLUoxetine 20 MG CAP PO (08:11)
[2018-04-28 11:58] LABS: BEDSIDE GLUCOSE 93 MG/DL (70-105)
[2018-04-28] MEDS: LOPERAMIDE 2 MG CAP PO ×2 (16:10→19:55)
[2018-04-28 17:17] LABS: BEDSIDE GLUCOSE 100 MG/DL (70-105)
[2018-04-28] MEDS: traZODone 50 MG TAB PO (20:35)
[2018-04-29] MEDS: LEVOTHYROXINE 25MCG TABLET (0.025MG) PO (06:07)
[2018-04-29 06:22] LABS: BEDSIDE GLUCOSE 102 MG/DL (70-105)
[2018-04-29] MEDS: FLUoxetine 20 MG CAP PO (09:00)
[2018-04-29] MEDS: OMEPRAZOLE 20 MG CAP PO (09:00)
[2018-04-29] MEDS: FUROSEMIDE 40 MG TAB PO ×2 (09:00→17:17)
[2018-04-29] MEDS: oxyBUTYnin 5 MG TAB PO ×2 (09:00→20:48)
[2018-04-29] MEDS: metFORMIN (GLUCOPHAGE) 500 MG TAB PO ×2 (09:00→17:17)
[2018-04-29 09:13] LABS: ALBUMIN 3.5 GM/DL (3.2-5.2); ALBUMIN/GLOBULIN RATIO 1.06 (1.00-1.93); ALKALINE PHOSPHATASE 74 U/L (45-117); ALT/SGPT 74 U/L (12-78); ANION GAP 8 MEQ/L (8-16); AST/SGOT 34 U/L (7-37); BLOOD UREA NITROGEN 14 MG/DL (7-18); CALCIUM LEVEL 8.3 MG/DL (8.5-10.1); CARBON DIOXIDE LEVEL 33 MEQ/L (21-32); CHLORIDE LEVEL 99 MEQ/L (98-107); CREATININE FOR GFR 0.82 MG/DL (0.55-1.30); FREE THYROXINE INDEX 4.1 % (1.3-4.8); GLOMERULAR FILTRATION RATE > 60.0 (>58); GLUCOSE, FASTING 91 MG/DL (70-100); POTASSIUM SERUM 3.7 MEQ/L (3.5-5.1); SODIUM LEVEL 140 MEQ/L (136-145); T UPTAKE 37 % (30-39); THYROXINE (T4) 11.1 UG/DL (4.5-12.0); TOTAL PROTEIN 6.8 GM/DL (6.4-8.2)
[2018-04-29 10:58] LABS: HEPATITIS B SURFACE ANTIGEN NEGATIVE (NEGATIVE)
[2018-04-29 11:16] LABS: HEPATITIS B CORE ANTIBODY IGM NEGATIVE (NEGATIVE)
[2018-04-29 11:16] LABS: HEPATITIS C VIRUS ABY INDEX 0.2 INDEX (<0.8)
[2018-04-29 11:18] LABS: HEPATITIS A ANTIBODY IGM NEGATIVE (NEGATIVE)
[2018-04-29 11:56] LABS: BEDSIDE GLUCOSE 102 MG/DL (70-105)
[2018-04-29 17:19] LABS: BEDSIDE GLUCOSE 93 MG/DL (70-105)
[2018-04-29] MEDS: PRAZOSIN 1 MG CAP PO (20:48)
[2018-04-29] MEDS: ATORVASTATIN 10 MG TAB PO (20:48)
[2018-04-29] MEDS: MAALOX 30 ML SUSP *UDC PO (20:48)
[2018-04-29] MEDS: hydrOXYzine 50 MG TAB PO (20:48)
[2018-04-30] MEDS: LEVOTHYROXINE 25MCG TABLET (0.025MG) PO (06:10)
[2018-04-30 06:29] LABS: BEDSIDE GLUCOSE 264 MG/DL (70-105)
[2018-04-30 06:51] LABS: BEDSIDE GLUCOSE 104 MG/DL (70-105)
[2018-04-30] MEDS: OMEPRAZOLE 20 MG CAP PO (08:57)
[2018-04-30] MEDS: metFORMIN (GLUCOPHAGE) 500 MG TAB PO ×2 (08:57→17:25)
[2018-04-30] MEDS: FUROSEMIDE 40 MG TAB PO ×2 (08:57→17:26)
[2018-04-30] MEDS: oxyBUTYnin 5 MG TAB PO ×2 (08:58→20:02)
[2018-04-30] MEDS: FLUoxetine 20 MG CAP PO (08:58)
[2018-04-30] MEDS: ATORVASTATIN 10 MG TAB PO (20:02)
[2018-04-30] MEDS: MAALOX 30 ML SUSP *UDC PO (20:02)
[2018-04-30] MEDS: PRAZOSIN 1 MG CAP PO (20:04)
[2018-05-01] MEDS: LEVOTHYROXINE 25MCG TABLET (0.025MG) PO (06:24)
[2018-05-01 08:14] LABS: BEDSIDE GLUCOSE 108 MG/DL (70-105)
[2018-05-01] MEDS: FUROSEMIDE 40 MG TAB PO (08:15)
[2018-05-01] MEDS: metFORMIN (GLUCOPHAGE) 500 MG TAB PO (08:15)
[2018-05-01] MEDS: oxyBUTYnin 5 MG TAB PO (08:15)
[2018-05-01] MEDS: FLUoxetine 20 MG CAP PO (08:15)
[2018-05-01] MEDS: OMEPRAZOLE 20 MG CAP PO (08:15)
[2018-05-01] MEDS: MAALOX 30 ML SUSP *UDC PO (09:39)
== END 2018-05-01 15:02 | disposition home or self-care (01) | DRG 754 ==
LOC: M PSY 04-26 00:26 → M ED 19:07 → M ED INP 20:48
PROVIDERS: Psychiatry & Neurology Psychiatry
DX: F32.9 Major depressive disorder, single episode, unspecified (principal); Z68.43 Body mass index [BMI] 50.0-59.9, adult; I10 Essential (primary) hypertension; E11.9 Type 2 diabetes mellitus without complications; N32.81 Overactive bladder; F81.9 Developmental disorder of scholastic skills, unspecified; Z87.440 Personal history of urinary (tract) infections; Z91.5 Personal history of self-harm; J45.909 Unspecified asthma, uncomplicated; E03.9 Hypothyroidism, unspecified; E78.5 Hyperlipidemia, unspecified; K21.9 Gastro-esophageal reflux disease without esophagitis; E66.9 Obesity, unspecified; Z90.49 Acquired absence of other specified parts of digestive tract; Z90.710 Acquired absence of both cervix and uterus; Z79.84 Long term (current) use of oral hypoglycemic drugs; Z88.0 Allergy status to penicillin; Z79.899 Other long term (current) drug therapy

== ENCOUNTER 2018-09-27 14:14 | Inpatient (IN) | payer MEDICAID ==
[2018-09-27 14:58] LABS: HEMATOCRIT 37.1 % (36.0-47.0); HEMOGLOBIN 11.5 g/dl (12.0-15.5); MEAN CORPUSCULAR HEMOGLOBIN 29.7 pg (27.0-33.0); MEAN CORPUSCULAR VOLUME 95.9 fl (80.0-96.0); PLATELET COUNT, AUTOMATED 272 10^3/uL (150-450); RED BLOOD COUNT 3.87 10^6/uL (4.00-5.40); RED CELL DISTRIBUTION WIDTH 14.2 % (11.5-14.5); WHITE BLOOD COUNT 9.6 10^3/uL (4.0-10.0)
[2018-09-27 15:18] LABS: AMPHETAMINES LEVEL URINE NEGATIVE (NEGATIVE); BARBITURATES URINE NEGATIVE (NEGATIVE); BENZODIAZEPINES URINE NEGATIVE (NEGATIVE); CANNABINOIDS URINE NEGATIVE (NEGATIVE); COCAINE METABOLITE URINE NEGATIVE (NEGATIVE); METHADONE URINE NEGATIVE (NEGATIVE); OPIATES URINE NEGATIVE (NEGATIVE); PHENCYCLIDINE URINE NEGATIVE (NEGATIVE)
[2018-09-27 15:26] LABS: ACETAMINOPHEN LEVEL < 2.0 UG/ML (10.0-30.0); ALBUMIN 3.4 GM/DL (3.2-5.2); ALBUMIN/GLOBULIN RATIO 1.17 (1.00-1.93); ALKALINE PHOSPHATASE 75 U/L (45-117); ALT/SGPT 27 U/L (12-78); ANION GAP 7 MEQ/L (8-16); AST/SGOT 12 U/L (7-37); BILIRUBIN,DIRECT 0.1 MG/DL (0.0-0.2); BILIRUBIN,TOTAL 0.3 MG/DL (0.2-1.0); BLOOD UREA NITROGEN 9 MG/DL (7-18); CALCIUM LEVEL 8.1 MG/DL (8.5-10.1); CARBON DIOXIDE LEVEL 33 MEQ/L (21-32); CHLORIDE LEVEL 105 MEQ/L (98-107); CREATININE FOR GFR 1.04 MG/DL (0.55-1.30); ETHYL ALCOHOL (ETHANOL) < 0.003 % (0.000-0.010); GLOMERULAR FILTRATION RATE > 60.0 (>58); GLUCOSE, FASTING 85 MG/DL (70-100); SALICYLATE LEVEL < 1.7 MG/DL (5.0-30.0); SODIUM LEVEL 145 MEQ/L (136-145); TOTAL PROTEIN 6.3 GM/DL (6.4-8.2)
[2018-09-27] MEDS ORDERED: LURASIDONE 20 MG TAB (LATUDA) PO (17:00)
[2018-09-27] MEDS: metFORMIN (GLUCOPHAGE) 500 MG TAB PO (17:30)
[2018-09-27] MEDS: FUROSEMIDE 40 MG TAB PO (17:30)
[2018-09-27] MEDS: POTASSIUM CHLORIDE 10 MEQ SR TABLET PO (17:30)
[2018-09-27] MEDS: LURASIDONE HCL 40 MG TAB (LATUDA) PO (17:53)
[2018-09-27] MEDS: VITAMIN D 1,000 INTERNATIONAL UNITS TABLET PO (18:43)
[2018-09-28] MEDS: BUDESONIDE 180MCG INHALER (PULMICORT FLEXHALER) INH ×2 (09:00→21:00)
[2018-09-28] MEDS: TOLTERODINE (DETROL) 2 MG TAB PO ×2 (09:00→21:00)
[2018-09-28] MEDS: VITAMIN D 1,000 INTERNATIONAL UNITS TABLET PO (10:00)
[2018-09-28] MEDS ORDERED: ACETAMINOPHEN TAB 650MG DOSE (2X325MG) PO (12:15)
[2018-09-28] MEDS ORDERED: MAALOX 30 ML SUSP *UDC PO (12:15)
[2018-09-28] MEDS ORDERED: IPRATROPIUM 0.5MG/ALBUTEROL 2.5MG INH SOL UD 3ML (DUONEB)(J7620) NEB ×2 (13:45→14:00)
[2018-09-28] MEDS: COMBIVENT RESPIMAT 100-20MCG INHALER 4GM INH ×2 (14:00→20:00)
[2018-09-28] MEDS ORDERED: COMBIVENT RESPIMAT 100-20MCG INHALER 4GM INH (14:30)
[2018-09-28] MEDS: OMEPRAZOLE 20 MG CAP PO (14:36)
[2018-09-28] MEDS: POTASSIUM CHLORIDE 10 MEQ SR TABLET PO ×2 (14:36→21:00)
[2018-09-28] MEDS: guaiFENesin ER 600 MG TAB PO ×2 (14:36→21:00)
[2018-09-28] MEDS: ASPIRIN 81 MG ENTERIC TAB PO (14:37)
[2018-09-28] MEDS: MONTELUKAST 10 MG TAB PO (14:37)
[2018-09-28] MEDS: LORATADINE 10 MG TAB PO (14:37)
[2018-09-28] MEDS: FUROSEMIDE 40 MG TAB PO (16:31)
[2018-09-28] MEDS: metFORMIN (GLUCOPHAGE) 500 MG TAB PO (17:31)
[2018-09-28] MEDS: LURASIDONE HCL 40 MG TAB (LATUDA) PO (17:32)
[2018-09-28 17:34] LABS: BEDSIDE GLUCOSE 96 MG/DL (70-105)
[2018-09-28] MEDS: LEVOTHYROXINE 25MCG TABLET (0.025MG) PO (17:38)
[2018-09-28] MEDS: NAPROXEN 250 MG TAB PO (21:00)
[2018-09-28] MEDS: ATORVASTATIN 10 MG TAB PO (21:00)
[2018-09-28] MEDS: PRAZOSIN 1 MG CAP PO (21:00)
[2018-09-29] MEDS: COMBIVENT RESPIMAT 100-20MCG INHALER 4GM INH ×4 (02:00→20:45)
[2018-09-29] MEDS: LEVOTHYROXINE 25MCG TABLET (0.025MG) PO (06:52)
[2018-09-29 06:53] LABS: BEDSIDE GLUCOSE 99 MG/DL (70-105)
[2018-09-29] MEDS: VITAMIN D 1,000 INTERNATIONAL UNITS TABLET PO (08:27)
[2018-09-29] MEDS: TOLTERODINE (DETROL) 2 MG TAB PO ×2 (08:27→21:42)
[2018-09-29] MEDS: PYRIDOXINE 50 MG TAB PO (08:28)
[2018-09-29] MEDS: THIAMINE 100 MG TAB PO (08:29)
[2018-09-29] MEDS: metFORMIN (GLUCOPHAGE) 500 MG TAB PO ×2 (08:29→18:00)
[2018-09-29] MEDS: MONTELUKAST 10 MG TAB PO (08:29)
[2018-09-29] MEDS: NAPROXEN 250 MG TAB PO ×2 (08:29→21:45)
[2018-09-29] MEDS: LORATADINE 10 MG TAB PO (08:29)
[2018-09-29] MEDS: FLUoxetine 20 MG CAP PO (08:29)
[2018-09-29] MEDS: ASPIRIN 81 MG ENTERIC TAB PO (08:29)
[2018-09-29] MEDS: guaiFENesin ER 600 MG TAB PO ×2 (08:29→21:45)
[2018-09-29] MEDS: OMEPRAZOLE 20 MG CAP PO (08:29)
[2018-09-29] MEDS: FUROSEMIDE 40 MG TAB PO ×2 (08:30→18:01)
[2018-09-29] MEDS: POTASSIUM CHLORIDE 10 MEQ SR TABLET PO ×2 (08:30→21:44)
[2018-09-29] MEDS: BUDESONIDE 180MCG INHALER (PULMICORT FLEXHALER) INH ×2 (10:36→21:43)
[2018-09-29 11:52] LABS: KETONE, URINE AUTO RFX NEGATIVE (NEGATIVE); LEUKOCYTE ESTERASE UR AUTO RFX NEGATIVE (NEGATIVE); MUCUS, URINE RFX SMALL (NEGATIVE); NITRITE, URINE AUTO RFX NEGATIVE (NEGATIVE); RBC, URINE AUTO RFX 0 /HPF (0-3); SPECIFIC GRAVITY UR AUTO RFX 1.005 (1.002-1.035); SQUAM EPITHELIAL CELL UR AURFX 0 /HPF (0-6); WBC, URINE AUTO RFX 1 /HPF (0-3)
[2018-09-29 16:40] LABS: BEDSIDE GLUCOSE 90 MG/DL (70-105)
[2018-09-29] MEDS: LURASIDONE HCL 40 MG TAB (LATUDA) PO (18:00)
[2018-09-29] MEDS: ATORVASTATIN 10 MG TAB PO (21:43)
[2018-09-29] MEDS: traZODone 50 MG TAB PO (21:45)
[2018-09-29] MEDS: PRAZOSIN 1 MG CAP PO (21:45)
[2018-09-30] MEDS: COMBIVENT RESPIMAT 100-20MCG INHALER 4GM INH ×4 (02:00→20:59)
[2018-09-30] MEDS: LEVOTHYROXINE 25MCG TABLET (0.025MG) PO (06:32)
[2018-09-30 06:38] LABS: BEDSIDE GLUCOSE 102 MG/DL (70-105)
[2018-09-30] MEDS: LORATADINE 10 MG TAB PO (08:32)
[2018-09-30] MEDS: BUDESONIDE 180MCG INHALER (PULMICORT FLEXHALER) INH ×2 (08:32→20:59)
[2018-09-30] MEDS: THIAMINE 100 MG TAB PO (08:33)
[2018-09-30] MEDS: FLUoxetine 20 MG CAP PO (08:33)
[2018-09-30] MEDS: metFORMIN (GLUCOPHAGE) 500 MG TAB PO ×2 (08:33→17:14)
[2018-09-30] MEDS: PYRIDOXINE 50 MG TAB PO (08:33)
[2018-09-30] MEDS: guaiFENesin ER 600 MG TAB PO ×2 (08:33→20:58)
[2018-09-30] MEDS: MONTELUKAST 10 MG TAB PO (08:34)
[2018-09-30] MEDS: POTASSIUM CHLORIDE 10 MEQ SR TABLET PO ×2 (08:34→20:58)
[2018-09-30] MEDS: OMEPRAZOLE 20 MG CAP PO (08:34)
[2018-09-30] MEDS: VITAMIN D 1,000 INTERNATIONAL UNITS TABLET PO (08:35)
[2018-09-30] MEDS: FUROSEMIDE 40 MG TAB PO ×2 (08:35→16:49)
[2018-09-30] MEDS: NAPROXEN 250 MG TAB PO ×2 (08:35→20:57)
[2018-09-30] MEDS: ASPIRIN 81 MG ENTERIC TAB PO (08:35)
[2018-09-30] MEDS: TOLTERODINE (DETROL) 2 MG TAB PO ×2 (08:38→20:58)
[2018-09-30 17:00] LABS: BEDSIDE GLUCOSE 125 MG/DL (70-105)
[2018-09-30] MEDS: LURASIDONE HCL 40 MG TAB (LATUDA) PO (17:15)
[2018-09-30] MEDS: PRAZOSIN 1 MG CAP PO (20:57)
[2018-09-30] MEDS: ATORVASTATIN 10 MG TAB PO (20:58)
[2018-10-01] MEDS: COMBIVENT RESPIMAT 100-20MCG INHALER 4GM INH ×4 (01:33→20:38)
[2018-10-01] MEDS: LEVOTHYROXINE 25MCG TABLET (0.025MG) PO (06:15)
[2018-10-01 06:44] LABS: BEDSIDE GLUCOSE 112 MG/DL (70-105)
[2018-10-01] MEDS: BUDESONIDE 180MCG INHALER (PULMICORT FLEXHALER) INH ×2 (08:18→20:38)
[2018-10-01] MEDS: metFORMIN (GLUCOPHAGE) 500 MG TAB PO ×2 (08:19→15:57)
[2018-10-01] MEDS: PYRIDOXINE 50 MG TAB PO (08:19)
[2018-10-01] MEDS: NAPROXEN 250 MG TAB PO ×2 (08:19→20:36)
[2018-10-01] MEDS: OMEPRAZOLE 20 MG CAP PO (08:19)
[2018-10-01] MEDS: ASPIRIN 81 MG ENTERIC TAB PO (08:20)
[2018-10-01] MEDS: THIAMINE 100 MG TAB PO (08:20)
[2018-10-01] MEDS: POTASSIUM CHLORIDE 10 MEQ SR TABLET PO ×2 (08:20→20:36)
[2018-10-01] MEDS: MONTELUKAST 10 MG TAB PO (08:20)
[2018-10-01] MEDS: TOLTERODINE (DETROL) 2 MG TAB PO ×2 (08:20→20:36)
[2018-10-01] MEDS: VITAMIN D 1,000 INTERNATIONAL UNITS TABLET PO (08:20)
[2018-10-01] MEDS: FUROSEMIDE 40 MG TAB PO ×2 (08:20→15:57)
[2018-10-01] MEDS: LORATADINE 10 MG TAB PO (08:20)
[2018-10-01] MEDS: guaiFENesin ER 600 MG TAB PO ×2 (08:20→20:36)
[2018-10-01] MEDS: FLUoxetine 20 MG CAP PO (08:20)
[2018-10-01] MEDS: MOM 30ML SUSPENSION UDC PO (12:47)
[2018-10-01] MEDS: SENNA 8.6 MG TAB (SENOKOT) PO ×2 (15:57→20:37)
[2018-10-01] MEDS: LURASIDONE HCL 40 MG TAB (LATUDA) PO (15:57)
[2018-10-01 16:36] LABS: BEDSIDE GLUCOSE 92 MG/DL (70-105)
[2018-10-01] MEDS: ATORVASTATIN 10 MG TAB PO (20:36)
[2018-10-01] MEDS: PRAZOSIN 1 MG CAP PO (20:36)
[2018-10-02] MEDS: COMBIVENT RESPIMAT 100-20MCG INHALER 4GM INH ×2 (02:00→08:12)
[2018-10-02] MEDS: LEVOTHYROXINE 25MCG TABLET (0.025MG) PO (06:02)
[2018-10-02 06:06] LABS: BEDSIDE GLUCOSE 101 MG/DL (70-105)
[2018-10-02] MEDS: metFORMIN (GLUCOPHAGE) 500 MG TAB PO (08:10)
[2018-10-02] MEDS: ASPIRIN 81 MG ENTERIC TAB PO (08:10)
[2018-10-02] MEDS: FUROSEMIDE 40 MG TAB PO (08:10)
[2018-10-02] MEDS: guaiFENesin ER 600 MG TAB PO (08:10)
[2018-10-02] MEDS: LORATADINE 10 MG TAB PO (08:10)
[2018-10-02] MEDS: MONTELUKAST 10 MG TAB PO (08:10)
[2018-10-02] MEDS: VITAMIN D 1,000 INTERNATIONAL UNITS TABLET PO (08:10)
[2018-10-02] MEDS: NAPROXEN 250 MG TAB PO (08:11)
[2018-10-02] MEDS: FLUoxetine 20 MG CAP PO (08:11)
[2018-10-02] MEDS: POTASSIUM CHLORIDE 10 MEQ SR TABLET PO (08:11)
[2018-10-02] MEDS: BUDESONIDE 180MCG INHALER (PULMICORT FLEXHALER) INH (08:11)
[2018-10-02] MEDS: SENNA 8.6 MG TAB (SENOKOT) PO (08:11)
[2018-10-02] MEDS: THIAMINE 100 MG TAB PO (08:11)
[2018-10-02] MEDS: TOLTERODINE (DETROL) 2 MG TAB PO (08:11)
[2018-10-02] MEDS: PYRIDOXINE 50 MG TAB PO (08:12)
[2018-10-02] MEDS: OMEPRAZOLE 20 MG CAP PO (08:12)
== END 2018-10-02 12:15 | disposition home or self-care (01) | DRG 753 ==
LOC: M ED INP 09-28 12:01 → M PSY 09-28 13:10 → M ED 14:14
DX: F31.9 Bipolar disorder, unspecified (principal); Z68.43 Body mass index [BMI] 50.0-59.9, adult; R45.851 Suicidal ideations; R45.850 Homicidal ideations; E11.9 Type 2 diabetes mellitus without complications; G43.909 Migraine, unspecified, not intractable, without status migrainosus; F43.10 Post-traumatic stress disorder, unspecified; F41.9 Anxiety disorder, unspecified; E66.9 Obesity, unspecified; E78.5 Hyperlipidemia, unspecified; J45.909 Unspecified asthma, uncomplicated; E03.9 Hypothyroidism, unspecified; K21.9 Gastro-esophageal reflux disease without esophagitis; Z79.899 Other long term (current) drug therapy; Z79.82 Long term (current) use of aspirin; Z88.0 Allergy status to penicillin; Z88.5 Allergy status to narcotic agent; Z88.8 Allergy status to other drugs, medicaments and biological substances; I10 Essential (primary) hypertension

== ENCOUNTER 2018-10-09 20:32 | Inpatient (IN) | payer MEDICAID ==
[2018-10-09 22:22] LABS: HEMATOCRIT 36.3 % (36.0-47.0); HEMOGLOBIN 11.6 g/dl (12.0-15.5); MEAN CORPUSCULAR HEMOGLOBIN 30.4 pg (27.0-33.0); PLATELET COUNT, AUTOMATED 274 10^3/uL (150-450); RED BLOOD COUNT 3.82 10^6/uL (4.00-5.40); RED CELL DISTRIBUTION WIDTH 13.9 % (11.5-14.5); WHITE BLOOD COUNT 10.2 10^3/uL (4.0-10.0)
[2018-10-09 22:46] LABS: AMPHETAMINES LEVEL URINE NEGATIVE (NEGATIVE); BARBITURATES URINE NEGATIVE (NEGATIVE); BENZODIAZEPINES URINE NEGATIVE (NEGATIVE); CANNABINOIDS URINE NEGATIVE (NEGATIVE); COCAINE METABOLITE URINE NEGATIVE (NEGATIVE); METHADONE URINE NEGATIVE (NEGATIVE); OPIATES URINE NEGATIVE (NEGATIVE); PHENCYCLIDINE URINE NEGATIVE (NEGATIVE)
[2018-10-09 22:56] LABS: ACETAMINOPHEN LEVEL < 2.0 UG/ML (10.0-30.0); ALBUMIN 3.2 GM/DL (3.2-5.2); ALBUMIN/GLOBULIN RATIO 1.07 (1.00-1.93); ALKALINE PHOSPHATASE 74 U/L (45-117); ALT/SGPT 28 U/L (12-78); ANION GAP 8 MEQ/L (8-16); AST/SGOT 12 U/L (7-37); BILIRUBIN,DIRECT 0.1 MG/DL (0.0-0.2); BILIRUBIN,TOTAL 0.4 MG/DL (0.2-1.0); BLOOD UREA NITROGEN 14 MG/DL (7-18); CALCIUM LEVEL 7.9 MG/DL (8.5-10.1); CARBON DIOXIDE LEVEL 32 MEQ/L (21-32); CHLORIDE LEVEL 103 MEQ/L (98-107); CREATININE FOR GFR 1.03 MG/DL (0.55-1.30); ETHYL ALCOHOL (ETHANOL) 0.004 % (0.000-0.010); GLOMERULAR FILTRATION RATE > 60.0 (>58); GLUCOSE, FASTING 100 MG/DL (70-100); POTASSIUM SERUM 3.6 MEQ/L (3.5-5.1); SALICYLATE LEVEL < 1.7 MG/DL (5.0-30.0); SODIUM LEVEL 143 MEQ/L (136-145); TOTAL PROTEIN 6.2 GM/DL (6.4-8.2)
[2018-10-09] MEDS ORDERED: traZODone 50 MG TAB PO (23:00)
[2018-10-09] MEDS ORDERED: hydrOXYzine 50 MG TAB PO (23:00)
[2018-10-09] MEDS ORDERED: MOM 30ML SUSPENSION UDC PO (23:00)
[2018-10-09] MEDS ORDERED: MAALOX 30 ML SUSP *UDC PO (23:00)
[2018-10-09] MEDS ORDERED: COMBIVENT RESPIMAT 100-20MCG INHALER 4GM INH (23:00)
[2018-10-10] MEDS: LEVOTHYROXINE 25MCG TABLET (0.025MG) PO (06:11)
[2018-10-10 06:46] LABS: BEDSIDE GLUCOSE 93 MG/DL (70-105)
[2018-10-10] MEDS: metFORMIN (GLUCOPHAGE) 500 MG TAB PO ×2 (07:48→18:04)
[2018-10-10] MEDS: FUROSEMIDE 40 MG TAB PO ×2 (07:48→16:01)
[2018-10-10] MEDS: PILL CRUSHER/CUTTER 1 EACH XX (08:17)
[2018-10-10] MEDS: PANTOPRAZOLE 40MG TAB (PROTONIX) PO (08:17)
[2018-10-10] MEDS: POTASSIUM CHLORIDE 10 MEQ SR TABLET PO (08:17)
[2018-10-10] MEDS: MONTELUKAST 10 MG TAB PO (08:17)
[2018-10-10] MEDS: THIAMINE 100 MG TAB PO ×2 (08:17→22:45)
[2018-10-10] MEDS: ASPIRIN 81 MG CHEW TABLET PO (08:17)
[2018-10-10] MEDS: FLUoxetine 20 MG CAP PO (08:17)
[2018-10-10] MEDS: SENNA 8.6 MG TAB (SENOKOT) PO ×2 (08:17→22:42)
[2018-10-10] MEDS: LORATADINE 10 MG TAB PO (08:18)
[2018-10-10] MEDS: VITAMIN D 1,000 INTERNATIONAL UNITS TABLET PO (08:18)
[2018-10-10] MEDS: TOLTERODINE (DETROL) 2 MG TAB PO ×2 (08:18→22:43)
[2018-10-10] MEDS: BUDESONIDE 0.5 MG/2 ML INHALATION SUSPENSION INH ×2 (08:31→20:00)
[2018-10-10] MEDS ORDERED: OMEPRAZOLE 20 MG CAP PO (09:00)
[2018-10-10] MEDS ORDERED: THIAMINE 100 MG TAB PO (09:00)
[2018-10-10] MEDS ORDERED: TOLTERODINE (DETROL) 2 MG TAB PO (09:00)
[2018-10-10] MEDS ORDERED: POTASSIUM CHLORIDE 10 MEQ SR TABLET PO (09:00)
[2018-10-10] MEDS ORDERED: NAPROXEN 250 MG TAB PO (09:00)
[2018-10-10 17:10] LABS: BEDSIDE GLUCOSE 102 MG/DL (70-105)
[2018-10-10] MEDS: LURASIDONE HCL 40 MG TAB (LATUDA) PO (18:04)
[2018-10-10] MEDS ORDERED: PRAZOSIN 1 MG CAP PO (21:00)
[2018-10-10] MEDS ORDERED: ATORVASTATIN 20 MG TAB PO (21:00)
[2018-10-10] MEDS: ATORVASTATIN 20 MG TAB PO (21:00)
[2018-10-10] MEDS: PRAZOSIN 1 MG CAP PO (22:43)
[2018-10-11] MEDS: LEVOTHYROXINE 25MCG TABLET (0.025MG) PO (06:02)
[2018-10-11 06:34] LABS: BEDSIDE GLUCOSE 98 MG/DL (70-105)
[2018-10-11] MEDS: BUDESONIDE 0.5 MG/2 ML INHALATION SUSPENSION INH ×2 (08:32→20:00)
[2018-10-11] MEDS: POTASSIUM CHLORIDE 10 MEQ SR TABLET PO (12:36)
[2018-10-11] MEDS: VITAMIN D 1,000 INTERNATIONAL UNITS TABLET PO (12:36)
[2018-10-11] MEDS: FUROSEMIDE 40 MG TAB PO ×2 (12:37→17:00)
[2018-10-11] MEDS: FLUoxetine 20 MG CAP PO (12:37)
[2018-10-11] MEDS: LORATADINE 10 MG TAB PO (12:37)
[2018-10-11] MEDS: PANTOPRAZOLE 40MG TAB (PROTONIX) PO (12:37)
[2018-10-11] MEDS: metFORMIN (GLUCOPHAGE) 500 MG TAB PO ×2 (12:37→17:37)
[2018-10-11] MEDS: SENNA 8.6 MG TAB (SENOKOT) PO ×2 (12:37→21:00)
[2018-10-11] MEDS: MONTELUKAST 10 MG TAB PO (12:38)
[2018-10-11] MEDS: ASPIRIN 81 MG CHEW TABLET PO (12:38)
[2018-10-11] MEDS: THIAMINE 100 MG TAB PO ×2 (12:38→21:00)
[2018-10-11] MEDS: TOLTERODINE (DETROL) 2 MG TAB PO ×2 (12:38→21:00)
[2018-10-11] MEDS: LURASIDONE HCL 40 MG TAB (LATUDA) PO (17:37)
[2018-10-11] MEDS: CIPROFLOXACIN 500 MG TAB PO (17:37)
[2018-10-11] MEDS: ATORVASTATIN 20 MG TAB PO (21:00)
[2018-10-11] MEDS: PRAZOSIN 1 MG CAP PO (21:00)
[2018-10-12] MEDS: CIPROFLOXACIN 500 MG TAB PO ×3 (06:38→23:02)
[2018-10-12] MEDS: LEVOTHYROXINE 25MCG TABLET (0.025MG) PO (06:38)
[2018-10-12] MEDS: IBUPROFEN 400 MG TAB PO ×2 (06:44→12:56)
[2018-10-12 06:47] LABS: BEDSIDE GLUCOSE 88 MG/DL (70-105)
[2018-10-12] MEDS: POTASSIUM CHLORIDE 10 MEQ SR TABLET PO (08:27)
[2018-10-12] MEDS: VITAMIN D 1,000 INTERNATIONAL UNITS TABLET PO (08:27)
[2018-10-12] MEDS: FLUoxetine 20 MG CAP PO (08:27)
[2018-10-12] MEDS: PANTOPRAZOLE 40MG TAB (PROTONIX) PO (08:27)
[2018-10-12] MEDS: THIAMINE 100 MG TAB PO ×2 (08:27→21:00)
[2018-10-12] MEDS: LORATADINE 10 MG TAB PO (08:27)
[2018-10-12] MEDS: ASPIRIN 81 MG CHEW TABLET PO (08:27)
[2018-10-12] MEDS: SENNA 8.6 MG TAB (SENOKOT) PO ×2 (08:28→21:00)
[2018-10-12] MEDS: metFORMIN (GLUCOPHAGE) 500 MG TAB PO ×2 (08:28→17:33)
[2018-10-12] MEDS: TOLTERODINE (DETROL) 2 MG TAB PO ×2 (08:28→21:00)
[2018-10-12] MEDS: MONTELUKAST 10 MG TAB PO (08:28)
[2018-10-12] MEDS: FUROSEMIDE 40 MG TAB PO ×2 (08:28→15:39)
[2018-10-12] MEDS: BUDESONIDE 0.5 MG/2 ML INHALATION SUSPENSION INH ×3 (09:13→23:25)
[2018-10-12] MEDS: LACTOBACILLUS ACIDOPHILUS CAP (BACID) PO ×2 (10:13→17:33)
[2018-10-12] MEDS: LURASIDONE HCL 40 MG TAB (LATUDA) PO (17:33)
[2018-10-12] MEDS: ATORVASTATIN 20 MG TAB PO (21:00)
[2018-10-12] MEDS: PRAZOSIN 1 MG CAP PO (21:00)
[2018-10-13] MEDS: LEVOTHYROXINE 25MCG TABLET (0.025MG) PO (06:12)
[2018-10-13 06:37] LABS: BEDSIDE GLUCOSE 99 MG/DL (70-105)
[2018-10-13] MEDS: FLUoxetine 20 MG CAP PO (08:06)
[2018-10-13] MEDS: TOLTERODINE (DETROL) 2 MG TAB PO (08:06)
[2018-10-13] MEDS: THIAMINE 100 MG TAB PO (08:06)
[2018-10-13] MEDS: metFORMIN (GLUCOPHAGE) 500 MG TAB PO (08:07)
[2018-10-13] MEDS: FUROSEMIDE 40 MG TAB PO (08:07)
[2018-10-13] MEDS: POTASSIUM CHLORIDE 10 MEQ SR TABLET PO (08:07)
[2018-10-13] MEDS: MONTELUKAST 10 MG TAB PO (08:07)
[2018-10-13] MEDS: PANTOPRAZOLE 40MG TAB (PROTONIX) PO (08:07)
[2018-10-13] MEDS: SENNA 8.6 MG TAB (SENOKOT) PO (08:07)
[2018-10-13] MEDS: VITAMIN D 1,000 INTERNATIONAL UNITS TABLET PO (08:07)
[2018-10-13] MEDS: LACTOBACILLUS ACIDOPHILUS CAP (BACID) PO (08:07)
[2018-10-13] MEDS: ASPIRIN 81 MG CHEW TABLET PO (08:07)
[2018-10-13] MEDS: LORATADINE 10 MG TAB PO (08:08)
== END 2018-10-13 09:20 | disposition home or self-care (01) | DRG 751 ==
LOC: M PSY 10-10 00:08 → M ED 20:32 → M ED INP 22:57
DX: F33.9 Major depressive disorder, recurrent, unspecified (principal); I10 Essential (primary) hypertension; E11.9 Type 2 diabetes mellitus without complications; Z68.43 Body mass index [BMI] 50.0-59.9, adult; E03.9 Hypothyroidism, unspecified; E78.5 Hyperlipidemia, unspecified; J32.9 Chronic sinusitis, unspecified; F41.1 Generalized anxiety disorder; F43.10 Post-traumatic stress disorder, unspecified; Z79.82 Long term (current) use of aspirin; Z79.899 Other long term (current) drug therapy; Z88.0 Allergy status to penicillin; Z88.5 Allergy status to narcotic agent; Z88.6 Allergy status to analgesic agent; K21.9 Gastro-esophageal reflux disease without esophagitis; E66.9 Obesity, unspecified; J45.909 Unspecified asthma, uncomplicated

== ENCOUNTER 2018-11-28 11:07 | Inpatient (IN) | payer MEDICAID ==
[~2018-11-28] VITALS: Ht 160 cm; Wt 128.1 kg
[~2018-11-28 11:07] MED LIST: ACET1TAB55 PO; ASPI81TA85 PO; ATOR1TAB19 PO; ATOR1TAB21 PO; BUDE0.5S6 INH; DETR1TAB3 PO; DETR1TAB5 PO; DIVA500T94; DIVA500T94 PO; FLUO20CA19 PO; FLUO40CA PO; FLUT11IN INH; FURO40TA2 PO; GABA-843 PO; HYDR-3363 PO; HYDR50TA70 PO; IPRA0.00 INH; KLOR10TA76 PO; LATU120T PO; LATU40TA PO; LEVO25TA34 PO; LORA-243 PO; METF500T13 PO; MINI1CAP PO; MIRT15TA3 PO; MONT10TA2 PO; NAPR-50 PO; NEUR300C; NYST1POW9 TOP; OMEP20CA3 PO; OXYB5TAB10 PO; PRAZ1CAP; PRAZ2CAP PO; PROT1TAB2 PO; PULM0.5S INH; PYRI100T2 PO; PYRI25TA2 PO; REME15TA; RISP1TAB42 PO; RISP2TAB3 PO; RISP2TAB32; SENN18TA PO; SYNT25TA PO; TOLT60TA PO; TOPI25CA PO; TRAZ-163 PO; TRAZO50TA PO; VITA-122 PO; VITA100T92 PO; VITA200015 PO; VITAMINB
[2018-11-28] MEDS ORDERED: LOPE2CA PO (11:21)
[2018-11-28] MEDS ORDERED: ROBA100S5 PO (11:21)
[2018-11-28 11:38] LABS: HEMATOCRIT 38.8 % (36.0-47.0); HEMOGLOBIN 12.2 g/dl (12.0-15.5); MEAN CORPUSCULAR HGB CONC 31.4 g/dl (32.0-36.5); MEAN CORPUSCULAR VOLUME 95.6 fl (80.0-96.0); PLATELET COUNT, AUTOMATED 262 10^3/uL (150-450); RED BLOOD COUNT 4.06 10^6/uL (4.00-5.40); WHITE BLOOD COUNT 6.6 10^3/uL (4.0-10.0)
[2018-11-28 12:04] LABS: AMPHETAMINES LEVEL URINE NEGATIVE (NEGATIVE); BARBITURATES URINE NEGATIVE (NEGATIVE); BENZODIAZEPINES URINE NEGATIVE (NEGATIVE); CANNABINOIDS URINE NEGATIVE (NEGATIVE); COCAINE METABOLITE URINE NEGATIVE (NEGATIVE); METHADONE URINE NEGATIVE (NEGATIVE); OPIATES URINE NEGATIVE (NEGATIVE); PHENCYCLIDINE URINE NEGATIVE (NEGATIVE)
[2018-11-28 12:20] LABS: ACETAMINOPHEN LEVEL < 2.0 UG/ML (10.0-30.0); ALBUMIN 3.5 GM/DL (3.2-5.2); ALT/SGPT 25 U/L (12-78); BILIRUBIN,DIRECT 0.1 MG/DL (0.0-0.2); BILIRUBIN,TOTAL 0.3 MG/DL (0.2-1.0); BLOOD UREA NITROGEN 13 MG/DL (7-18); CALCIUM LEVEL 8.4 MG/DL (8.5-10.1); CARBON DIOXIDE LEVEL 33 MEQ/L (21-32); CHLORIDE LEVEL 105 MEQ/L (98-107); CREATININE FOR GFR 0.92 MG/DL (0.55-1.30); ETHYL ALCOHOL (ETHANOL) < 0.003 % (0.000-0.010); GLOMERULAR FILTRATION RATE > 60.0 (>58); GLUCOSE, FASTING 104 MG/DL (70-100); POTASSIUM SERUM 3.7 MEQ/L (3.5-5.1); SALICYLATE LEVEL < 1.7 MG/DL (5.0-30.0); SODIUM LEVEL 144 MEQ/L (136-145); TOTAL PROTEIN 6.5 GM/DL (6.4-8.2)
[2018-11-28] MEDS ORDERED: SENN1TAB2 PO (14:43)
[2018-11-28] MEDS ORDERED: FLUO40CA PO (14:43)
[2018-11-28] MEDS ORDERED: MINI2CAP PO (14:43)
[2018-11-28] MEDS ORDERED: TRAZ-186 PO (14:47)
[2018-11-28] MEDS ORDERED: LATU40TA PO (14:47)
[2018-11-28] MEDS ORDERED: ALB2.5NEB INH (15:00)
[2018-11-28] MEDS ORDERED: MAALOX 30 ML SUSP *UDC PO PRN (15:45)
[2018-11-28] MEDS ORDERED: MOM 30ML SUSPENSION UDC PO PRN (15:45)
[2018-11-28] MEDS ORDERED: SENNA 8.6 MG TAB (SENOKOT) PO PRN (15:45)
[2018-11-28] MEDS ORDERED: traZODone 50 MG TAB PO PRN (15:45)
[2018-11-28] MEDS ORDERED: LOPERAMIDE 2 MG CAP PO PRN (15:45)
[2018-11-28] MEDS: FUROSEMIDE 40 MG TAB PO SCH (17:00)
[2018-11-28 19:15] VITALS: BP 142/80
[2018-11-28] MEDS: ATORVASTATIN 20 MG TAB PO SCH (20:20)
[2018-11-28] MEDS: metFORMIN (GLUCOPHAGE) 500 MG TAB PO SCH (20:20)
[2018-11-28] MEDS: LURASIDONE HCL 40 MG TAB (LATUDA) PO SCH (20:20)
[2018-11-28] MEDS: PRAZOSIN 1 MG CAP PO SCH (20:25)
[2018-11-29] MEDS: LEVOTHYROXINE 25MCG TABLET (0.025MG) PO SCH (06:25)
[2018-11-29 06:30] VITALS: BP 116/58
[2018-11-29] MEDS: FUROSEMIDE 40 MG TAB PO SCH ×2 (09:16→17:04)
[2018-11-29] MEDS: ASPIRIN 81 MG ENTERIC TAB PO SCH (09:16)
[2018-11-29] MEDS: metFORMIN (GLUCOPHAGE) 500 MG TAB PO SCH ×2 (09:16→17:04)
[2018-11-29] MEDS: LORATADINE 10 MG TAB PO SCH (09:16)
[2018-11-29] MEDS: POTASSIUM CHLORIDE 10 MEQ SR TABLET PO SCH (09:16)
[2018-11-29] MEDS: MONTELUKAST 10 MG TAB PO SCH (09:17)
[2018-11-29] MEDS: PANTOPRAZOLE 40MG TAB (PROTONIX) PO SCH (09:17)
[2018-11-29] MEDS: FLUoxetine 20 MG CAP PO SCH (09:17)
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
--- NOTE | 2018-11-29 12:23 | HPE ---
DATE OF ADMISSION: 11/28/2018 HISTORY OF PRESENT ILLNESS: Please refer to the psychiatric history and evaluation for further details on this admission. This examination and history is intended for medical issues which may need treatment, followup or consultation on this 43-year-old female. PRIMARY CARE PROVIDER: Dr. Beyer at the [facility]. ALLERGIES: ACETAMINOPHEN, HYDROCODONE, PENICILLIN. SOCIAL HISTORY: She is single. She lives at [facility]) in [place]. She does not drink alcohol. She does not smoke cigarettes. She does not use recreational drugs. FAMILY HISTORY: Mother , chronic obstructive pulmonary disease (COPD). Father decreased, unknown. PAST MEDICAL HISTORY: Schizophrenia. Bipolar disorder. Psychosis. Anxiety. Depression. History of suicidal ideation. History of urinary tract infection (UTI) seen by [facility] in the past. Asthma. Hypothyroidism. Edentulous. Dyslipidemia. Gastroesophageal reflux disease (GERD). Obesity. Non-insulin dependent diabetes type 2. PAST SURGICAL HISTORY: Cholecystectomy. Hernia repair times two. Right knee surgery times four. section times two. Hysterectomy. EKG: Sinus rhythm done on 04/27/2018. LABORATORY STUDIES: White count 6.6, hemoglobin 12.2, hematocrit 35.8, platelets 262. Sodium 142, potassium 3.7, chloride 105, CO2 36, anion gap 6, BUN 13, creatinine 0.92, nonfasting blood sugar 104, calcium 8.4. Urine for toxicology was negative. REVIEW OF SYSTEMS: 11-systems review was done and was unremarkable. Patient had no complaints. PHYSICAL EXAMINATION: 43-year-old obese female in no acute distress. Height 63 inches, weight 129.1 kg, body mass index (BMI) 50.4, blood pressure 114/64, pulse 97, respiratory rate 16, Oxygen saturation 95%. Temperature 97.8. The patient is alert and oriented times three. Pupils equal and reactive to light. Extraocular movements intact. Cornea and sclera clear. Conjunctiva normal. No facial asymmetry. TMs pearly bilaterally. Pharynx, tongue, and gums pink and moist. Tongue is midline. Neck is supple, without lymphadenopathy. No thyromegaly. No goiter, carotid 2+ without bruit. Chest clear to auscultation, without wheeze or retraction. Heart is regular. Abdomen benign. Bowel sounds positive. /Rectal: Not done. Extremities show equal strength. Full range of motion. no cyanosis, clubbing or edema. Skin is warm and dry. Cranial nerves III through XII grossly intact. IMPRESSION AND PLAN: 1. Psychiatric: Plan per psychiatry. 2. Dyslipidemia: Continue Lipitor. 3. Asthma: Clinically stable. Continue Singular. 4. Gastroesophageal reflux disease: Good response with Protonix. 5. Hypothyroidism 6. Non-insulin dependent diabetes type 2: Consistent carbohydrate diet. Continue metformin. Fingerstick blood sugars. Followup with primary care provider on discharge. [place]
[2018-11-29] MEDS: LURASIDONE HCL 40 MG TAB (LATUDA) PO SCH (17:04)
[2018-11-29 18:00] VITALS: BP 109/83
[2018-11-29] MEDS: ATORVASTATIN 20 MG TAB PO SCH (20:10)
[2018-11-29] MEDS: PRAZOSIN 1 MG CAP PO SCH (20:11)
[2018-11-30] MEDS: LEVOTHYROXINE 25MCG TABLET (0.025MG) PO SCH (06:10)
[2018-11-30 06:41] VITALS: BP 124/87
[2018-11-30] MEDS: metFORMIN (GLUCOPHAGE) 500 MG TAB PO SCH ×2 (07:47→17:09)
[2018-11-30] MEDS: LORATADINE 10 MG TAB PO SCH (09:23)
[2018-11-30] MEDS: MONTELUKAST 10 MG TAB PO SCH (09:23)
[2018-11-30] MEDS: ASPIRIN 81 MG ENTERIC TAB PO SCH (09:23)
[2018-11-30] MEDS: FUROSEMIDE 40 MG TAB PO SCH ×2 (09:23→17:09)
[2018-11-30] MEDS: POTASSIUM CHLORIDE 10 MEQ SR TABLET PO SCH (09:24)
[2018-11-30] MEDS: PANTOPRAZOLE 40MG TAB (PROTONIX) PO SCH (09:24)
[2018-11-30] MEDS: FLUoxetine 20 MG CAP PO SCH (09:24)
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
[2018-11-30 18:00] VITALS: BP 135/77
[2018-11-30] MEDS: LURASIDONE HCL 40 MG TAB (LATUDA) PO SCH (18:03)
[2018-11-30] MEDS: ARIPiprazole 2 MG TAB PO SCH (22:38)
[2018-11-30] MEDS: ATORVASTATIN 20 MG TAB PO SCH (22:38)
[2018-11-30] MEDS: PRAZOSIN 1 MG CAP PO SCH (22:39)
[2018-12-01] MEDS: LEVOTHYROXINE 25MCG TABLET (0.025MG) PO SCH (06:12)
[2018-12-01 06:30] VITALS: BP 92/53
[2018-12-01] MEDS: metFORMIN (GLUCOPHAGE) 500 MG TAB PO SCH ×2 (07:25→17:04)
[2018-12-01] MEDS: LORATADINE 10 MG TAB PO SCH (08:44)
[2018-12-01] MEDS: FLUoxetine 20 MG CAP PO SCH (08:44)
[2018-12-01] MEDS: ARIPiprazole 2 MG TAB PO SCH ×2 (08:44→19:50)
[2018-12-01] MEDS: FUROSEMIDE 40 MG TAB PO SCH ×2 (08:44→17:04)
[2018-12-01] MEDS: PANTOPRAZOLE 40MG TAB (PROTONIX) PO SCH (08:44)
[2018-12-01] MEDS: MONTELUKAST 10 MG TAB PO SCH (08:44)
[2018-12-01] MEDS: ASPIRIN 81 MG ENTERIC TAB PO SCH (08:44)
[2018-12-01] MEDS: POTASSIUM CHLORIDE 10 MEQ SR TABLET PO SCH (08:44)
[2018-12-01] MEDS ORDERED: ARIP2TAB PO (14:43)
[2018-12-01] MEDS ORDERED: LATU40TA PO (14:43)
[2018-12-01] MEDS ORDERED: IBUPROFEN 600 MG TAB PO PRN (15:45)
[2018-12-01] MEDS: LURASIDONE HCL 40 MG TAB (LATUDA) PO SCH (17:57)
[2018-12-01 18:00] VITALS: BP 110/60
[2018-12-01] MEDS: ATORVASTATIN 20 MG TAB PO SCH (19:50)
[2018-12-01 19:51] VITALS: BP 118/86
[2018-12-01] MEDS: PRAZOSIN 1 MG CAP PO SCH (19:51)
--- NOTE | 2018-12-01 20:13 | MHIPNPDOC ---
[facility] Progress Note Progress Note DATE OF SERVICE: 12/01/18 HISTORY: Chief Complaint "I want to kill Sky." History of Present Illness HISTORY OF THE PRESENT ILLNESS: Patient is a 43 -year-old , female, with a history of bipolar d/o and multiple [facility] admission in the past for SI/HI who was brought to ED after she called 911 endorsing SI and HI toward another male resident at [facility] where she currently resides. This is a frequent reason why pt has present to the ED in the past for admission to [facility]. In the ED pt endorsed increasing anger and frustration over the last 3 days due to fellow resident Sky who she believes is mean to her. Pt was refusing to return to [facility] stating she would kill herself if she had to. Pt seen today and states "I'm depressed and frustrated b/c this ryan at [facility] won't leave me alone. I think he wants to date me and I have PTSD I don't need that. I told him no and he still won't leave me alone. He's doing it on purpose to bother me." States "I'm sick of this anxiety and I want long term treatment." States she feels better her. Denies SI. States her meds are beneficial as they are. Feels safe here and plans to go to groups during the day. Pt is a poor historian and history gathered from previous records. VITAL SIGNS: See below. NEW TEST RESULTS: . CURRENT MEDICATIONS: See below. MENTAL STATUS EXAMINATION: General Appearance: well groomed, ds/not appear stated age (older), hospital scrubs/clothing Build: overweight Demeanor: cooperative, pleasant Eye Contact: fair Activity: Calm, laying in bed Behavior: cooperative Speech: clear, spontaneous, reg/rate,rhythm,volume Mood: depressed, anxious, irritable Mood "I'm feeling better" Affect: Full, reactive, congruent with mood Thought Process: concrete, depressed Thought Content (Delusions): She denies having paranoid delusions today Thought Content (Other): denies Thought Content (Aggressive): denies having HI towards Sky because he already left [facility] in [place], she no longer feels threatened by him Perception (Hallucinations): none reported Perception (Other): none reported Cognition (Impairment of): attention/concentration Cognition(Intelligence Est.): borderline Oriented: Awake, Alert, Oriented times three Insight: poor Judgment: Poor Psychosis: Denies Diagnoses Bipolar Depression Generalized Anxiety Disorder PTSD ASSESSMENT: Patient report that she feels much better despite feeling nauseous early in the morning. She said she ate egg salad last night and she knows she sh ouldn't eat it because it has mayonnaise. She says she feels much better today and she is willing to go home. She says she doesn't want to miss her appointment with the tow car driver. She denies having suicidal, homicidal thoughts and denies auditory and visual hallucinations. She says she feels fine with the current dose of Latuda which is 80 mg and she doesn't want it to be increased to 120 mg. MANAGEMENT PLAN: -Continue with Latuda 80 mg by mouth daily -Continue Abilify 2.5 mg twice a day TIME SPENT: 30 minutes. Vital Signs Vital Signs Date Time Temp Pulse Resp B/P (MAP) Pulse Ox O2 Delivery O2 Flow Rate FiO2 12/01/18 19:51 118/86 12/01/18 18:00 98.1 96 18 11/29/18 18:00 96 11/28/18 16:23 Room Air Laboratory Data 24H Labs Laboratory Tests 2 12/01/18 06:20: Bedside Glucose (Misc Panel) 96 12/01/18 16:52: Bedside Glucose (Misc Panel) 96 Current Medications Current Medications Al Hydrox/Mg Hydrox/Simethicone (Mylanta) 30 ml Q4HP PRN PO HEARTBURN/INDIGESTION Last administered on 11/30/18at 06:39; Start 11/28/18 at 15:45 Aripiprazole (AbiLIFY) 2 mg BID PO Last administered on 12/01/18at 19:50; Start 11/30/18 at 21:00 Aspirin (Ecotrin) 81 mg DAILY PO Last administered on 12/01/18 08:44; Start 11/29/18 at 09:00 Atorvastatin Calcium (Lipitor) 20 mg QHS PO Last administered on 12/01/18at 19:50; Start 11/28/18 at 21:00 Fluoxetine HCl (PROzac) 40 mg DAILY PO Last administered on 12/01/18at 08:44; Start 11/29/18 at 09:00 Furosemide (Lasix) 40 mg BID@0900,1700 PO Last administered on 12/01/18 17:04; Start 11/28/18 at 17:00 Home Med (Med Rec Complete!) ASDIRECTED XX ; Start 11/28/18 at 15:15; Stop 11/28/18 at 15:15; Status DC Ibuprofen (Advil) 600 mg Q6HP PRN PO PAIN; Start 12/01/18 at 15:45 Levothyroxine Sodium (Synthroid) 25 mcg DAILY@0600 PO Last administered on 12/01/18at 06:12; Start 11/29/18 at 06:00 Loperamide HCl (Imodium) 2 mg BIDP PRN PO DIARRHEA; Start 11/28/18 at 15:45 Loratadine (Claritin) 10 mg DAILY PO Last administered on 12/01/18 08:44; Start 11/29/18 at 09:00 Lurasidone HCl (Latuda) 80 mg QPM@1800 PO Last administered on 12/01/18 17:57; Start 11/30/18 at 18:00 Lurasidone HCl (Latuda) 120 mg QPM@1800 PO Last administered on 11/29/18 17:04; Start 11/28/18 at 18:00; Stop 11/30/18 at 15:29; Status DC Magnesium Hydroxide (Milk Of Magnesia) 30 ml DAILYPRN PRN PO CONSTIPATION; Start 11/28/18 at 15:45 Metformin HCl (Glucophage) 500 mg BIDWM PO Last administered on 12/01/18at 17:04; Start 11/28/18 at 18:00 Montelukast Sodium (Singulair) 10 mg DAILY PO Last administered on 12/01/18 08:44; Start 11/29/18 at 09:00 Pantoprazole Sodium (Protonix) 40 mg DAILY PO Last administered on 12/01/18 08:44; Start 11/29/18 at 09:00 Potassium Chloride (Micro-K Extencaps) 10 meq DAILY PO Last administered on 12/01/18 08:44; Start 11/29/18 at 09:00 Prazosin HCl (Minipress) 8 mg QHS PO Last administered on 12/01/18 19:51; Start 11/28/18 at 21:00 Senna (Senokot) 2 tab BIDP PRN PO CONSTIPATION; Start 11/28/18 at 15:45 Trazodone HCl (Desyrel) 50 mg QHSP PRN PO INSOMNIA; Start 11/28/18 at 15:45 Allergies Coded Allergies: Penicillins (Verified Allergy, Intermediate, rash, 09/24/17) Acetaminophen (Verified Allergy, Unknown, rash, 09/27/18) Hydrocodone (Verified Allergy, Unknown, rash, 09/27/18) JONE BHATTI MD Dec 01, 2018 20:13
[2018-12-02] MEDS: LEVOTHYROXINE 25MCG TABLET (0.025MG) PO SCH (06:05)
[2018-12-02 06:34] VITALS: BP 131/83
[2018-12-02] MEDS: metFORMIN (GLUCOPHAGE) 500 MG TAB PO SCH (07:17)
[2018-12-02] MEDS: FLUoxetine 20 MG CAP PO SCH (08:27)
[2018-12-02] MEDS: POTASSIUM CHLORIDE 10 MEQ SR TABLET PO SCH (08:27)
[2018-12-02] MEDS: ASPIRIN 81 MG ENTERIC TAB PO SCH (08:27)
[2018-12-02] MEDS: PANTOPRAZOLE 40MG TAB (PROTONIX) PO SCH (08:28)
[2018-12-02] MEDS: FUROSEMIDE 40 MG TAB PO SCH (08:28)
[2018-12-02] MEDS: MONTELUKAST 10 MG TAB PO SCH (08:28)
[2018-12-02] MEDS: LORATADINE 10 MG TAB PO SCH (08:28)
[2018-12-02] MEDS: ARIPiprazole 2 MG TAB PO SCH (08:28)
--- NOTE | 2018-12-13 20:14 | MHDSPDOC ---
[facility] Discharge Summary Discharge Summary DATE OF ADMISSION: Nov 28, 2018 at 15:45 DATE OF DISCHARGE: Dec 02, 2018 at 11:45 DISCHARGE DIAGNOSES: Bipolar Depression Generalized Anxiety Disorder PTSD REASON FOR ADMISSION: Patient is a 43 -year-old , female, with a history of bipolar d/o and multiple [facility] admission in the past for SI/HI who was brought to ED after she called 911 endorsing SI and HI toward another male resident at [facility] where she currently resides. This is a frequent reason why pt has present to the ED in the past for admission to [facility]. In the ED pt endorsed increasing anger and frustration over the last 3 days due to fellow resident Sky who she believes is mean to her. Pt was refusing to return to [facility] stating she would kill herself if she had to. Pt seen today and states "I'm depressed and frustrated b/c this ryan at [facility] won't leave me alone. I think he wants to date me and I have PTSD I don't need that. I told him no and he still won't leave me alone. He's doing it on purpose to bother me." States "I'm sick of this anxiety and I want correction treatment." States she feels better her. Denies SI. States her meds are beneficial as they are. Feels safe here and plans to go to groups during the day. Pt is a poor historian and history gathered from previous records. CONSULTANTS INVOLVED: None TREATMENT AND PROGRESS ON THE UNIT : Patient was admitted to the inpatient mental health unit because she had reported to have homicidal ideations against the person named Sky who was a resident at [facility] in [place] and used to harass her according to her. The patient has been hospitalized with us many times and the course of her illness is always the same. She comes in complaining of being severe in depressed and suicidal and after 24 or 48 hours she said that she is ready to go. The exception was last April when she came extremely depressed and she stayed a little longer. This time the patient requested to be discharged because she says she has gotten information from [facility] and they haven't told her that Sky had left and because he had left she felt happier, she felt calm because she knew she could go back without having to deal with him. HOSPITAL COURSE: As above DISCHARGE ASSESSMENT: Patient was not homicidal, not suicidal and not psychotic at the time of her discharge MENTAL STATUS EXAMINATION ON DISCHARGE: General Appearance: well groomed, ds/not appear stated age (older), hospital scrubs/clothing Build: overweight Demeanor: cooperative, pleasant Eye Contact: fair Activity: Calm, laying in bed Behavior: cooperative Speech: clear, spontaneous, reg/rate,rhythm,volume Mood: euthymic Mood "I'm feeling better" Affect: Full, reactive, congruent with mood Thought Process: concrete, depressed Thought Content (Delusions): She denies having paranoid delusions today Thought Content (Other): denies Thought Content (Aggressive): denies having HI towards Sky because he already left [facility] in [place], she no longer feels threatened by him Perception (Hallucinations): none reported Perception (Other): none reported Cognition (Impairment of): attention/concentration Cognition(Intelligence Est.): borderline Oriented: Awake, Alert, Oriented times three Insight: poor Judgment: Poor Psychosis: Denies Diagnoses Bipolar Depression Generalized Anxiety Disorder PTSD MEDICATIONS ON DISCHARGE: Scheduled (Tab-A-Rodrigo) 1 Tab Tab, 1 TAB PO DAILY, (Reported) Aripiprazole (Aripiprazole) 2 Mg Tab, 2 MG PO BID for mood, #14 Atorvastatin Calcium (Atorvastatin Calcium) 20 Mg Tab, 20 MG PO QHS for HYPERTENSIOJN, (Reported) Budesonide (Pulmicort) 0.5 Mg/2 Ml Dinorah, 0.5 MG INH BID, (Reported) Clindamycin Hcl (Clindamycin HCl) 150 Mg Cap, 300 MG PO TID, (Reported) DENTAL INFECTION Fluoxetine Hcl (Fluoxetine HCl) 40 Mg Cap, 40 MG PO DAILY, (Reported) Levothyroxine Sodium (Synthroid) 25 Mcg Tab, 25 MCG PO DAILY for , (Reported) Loratadine (Loratadine) 10 Mg Tab, 10 MG PO DAILY for , (Reported) Lurasidone Hydrochloride (Latuda) 60 Mg Tab, 60 MG PO QPM, (Reported) Metformin Hydrochloride (Glucophage) 500 Mg Tab, 500 MG PO BIDWM, (Reported) Montelukast Sodium (Montelukast Sodium) 10 Mg Tab, 10 MG PO DAILY for , (Reported) Pantoprazole Sodium Sesquihydr (Protonix) 40 Mg Tab, 40 MG PO DAILY, #30 (Reported) Polyethylene Glycol (Miralax) 1 Pow Pow, 17 GRAM PO DAILY for constipation, #255 (Reported) dissolve in water Potassium Chloride (Klor-Con M10) 10 Meq Tabcr, 10 MEQ PO DAILY for , (Reported) Prazosin HCl (Minipress) 2 Mg Cap, 8 MG PO QHS, (Reported) Scheduled PRN Albuterol Sulfate (Albuterol Sulfate) 2.5 Mg/0.5 Ml Neb, 2.5 MG INH Q4H PRN for SHORTNESS OF BREATH, (Reported) Fluticasone Propionate (Flonase Allergy Relief) 50 Mcg/Act Spr, 1 SPRAY NARES DAILY PRN for NASAL CONGESTION, (Reported) Naproxen (Naproxen) 500 Mg Tab, 500 MG PO BID PRN for PAIN, (Reported) PLAN/FOLLOWUP ARRANGEMENTS: Follow Up Care Education Label * Mental Health Appt 1 * Mental Health [facility] * Established With This Provider Yes * Therapist MAXWELL * Date Dec 08, 2018 * Time 16:00 * Address of Clinic or Practice [address] [place] [address] * Follow Up Care Education Label * Medical * Medical Follow Up [facility] * Established With This Provider Yes * Therapist Dr. Beyer * Date Dec 04, 2018 * Time 13:00 * Address of Clinic or Practice [address] [place] [address] * The amount of time spent in the coordination of care for this patient was approximately 30 minutes. Medications Scheduled (Tab-A-Rodrigo) 1 Tab Tab, 1 TAB PO DAILY, (Reported) Aripiprazole (Aripiprazole) 2 Mg Tab, 2 MG PO BID for mood, #14 Atorvastatin Calcium (Atorvastatin Calcium) 20 Mg Tab, 20 MG PO QHS for HYPERTENSIOJN, (Reported) Budesonide (Pulmicort) 0.5 Mg/2 Ml Dinorah, 0.5 MG INH BID, (Reported) Clindamycin Hcl (Clindamycin HCl) 150 Mg Cap, 300 MG PO TID, (Reported) DENTAL INFECTION Fluoxetine Hcl (Fluoxetine HCl) 40 Mg Cap, 40 MG PO DAILY, (Reported) Levothyroxine Sodium (Synthroid) 25 Mcg Tab, 25 MCG PO DAILY for , (Reported) Loratadine (Loratadine) 10 Mg Tab, 10 MG PO DAILY for , (Reported) Lurasidone Hydrochloride (Latuda) 60 Mg Tab, 60 MG PO QPM, (Reported) Metformin Hydrochloride (Glucophage) 500 Mg Tab, 500 MG PO BIDWM, (Reported) Montelukast Sodium (Montelukast Sodium) 10 Mg Tab, 10 MG PO DAILY for , (Reported) Pantoprazole Sodium Sesquihydr (Protonix) 40 Mg Tab, 40 MG PO DAILY, #30 (Reported) Polyethylene Glycol (Miralax) 1 Pow Pow, 17 GRAM PO DAILY for constipation, #255 (Reported) dissolve in water Potassium Chloride (Klor-Con M10) 10 Meq Tabcr, 10 MEQ PO DAILY for , (Reported) Prazosin HCl (Minipress) 2 Mg Cap, 8 MG PO QHS, (Reported) Scheduled PRN Albuterol Sulfate (Albuterol Sulfate) 2.5 Mg/0.5 Ml Neb, 2.5 MG INH Q4H PRN for SHORTNESS OF BREATH, (Reported) Fluticasone Propionate (Flonase Allergy Relief) 50 Mcg/Act Spr, 1 SPRAY NARES DAILY PRN for NASAL CONGESTION, (Reported) Naproxen (Naproxen) 500 Mg Tab, 500 MG PO BID PRN for PAIN, (Reported) Allergies Coded Allergies: Penicillins (Verified Allergy, Intermediate, rash, 09/24/17) Acetaminophen (Verified Allergy, Unknown, rash, 09/27/18) Hydrocodone (Verified Allergy, Unknown, rash, 09/27/18) JONE BHATTI MD Dec 13, 2018 20:10
== END 2018-12-02 11:45 | disposition home or self-care (01) | DRG 753 ==
LOC: M ED 11:07 → M ED INP 15:45 → M PSY 18:42 → M ED INP 11-29 20:35 → M PSY 11-29 20:37
PROVIDERS: ADMIT Psychiatry & Neurology Psychiatry; ATTEND Psychiatry & Neurology Psychiatry
DX: F31.9 Bipolar disorder, unspecified (principal); F41.1 Generalized anxiety disorder; F43.10 Post-traumatic stress disorder, unspecified; Z62.810 Personal history of physical and sexual abuse in childhood; Z79.899 Other long term (current) drug therapy; Z88.0 Allergy status to penicillin; Z88.5 Allergy status to narcotic agent; Z88.6 Allergy status to analgesic agent; J45.909 Unspecified asthma, uncomplicated; E03.9 Hypothyroidism, unspecified; E78.5 Hyperlipidemia, unspecified; K21.9 Gastro-esophageal reflux disease without esophagitis; E66.9 Obesity, unspecified; E11.9 Type 2 diabetes mellitus without complications; Z90.49 Acquired absence of other specified parts of digestive tract; Z90.710 Acquired absence of both cervix and uterus; Z68.43 Body mass index [BMI] 50.0-59.9, adult; Z79.84 Long term (current) use of oral hypoglycemic drugs

== ENCOUNTER 2018-12-12 08:54 | Inpatient (IN) | payer MEDICAID ==
[~2018-12-12] VITALS: Ht 160 cm; Wt 130.3 kg
[2018-12-12] MEDS: LEVOTHYROXINE 25MCG TABLET (0.025MG) PO SCH (06:00)
[~2018-12-12 08:54] MED LIST changes: +ALB2.5NEB INH; +ARIP2TAB PO; +LOPE2CA PO; +MINI2CAP PO; +ROBA100S5 PO; +SENN1TAB2 PO; +TRAZ-186 PO
[2018-12-12] MEDS: CLINDAMYCIN 150 MG CAP PO SCH ×3 (09:00→21:25)
[2018-12-12 09:21] LABS: HEMATOCRIT 37.1 % (36.0-47.0); HEMOGLOBIN 11.6 g/dl (12.0-15.5); MEAN CORPUSCULAR HEMOGLOBIN 29.3 pg (27.0-33.0); MEAN CORPUSCULAR HGB CONC 31.3 g/dl (32.0-36.5); MEAN CORPUSCULAR VOLUME 93.7 fl (80.0-96.0); PLATELET COUNT, AUTOMATED 259 10^3/uL (150-450); RED BLOOD COUNT 3.96 10^6/uL (4.00-5.40); WHITE BLOOD COUNT 6.9 10^3/uL (4.0-10.0)
[2018-12-12] MEDS ORDERED: TAB-TAB PO (09:55)
[2018-12-12] MEDS ORDERED: FLON1SPR NARES (09:55)
[2018-12-12] MEDS ORDERED: PROT1TAB2 PO (09:55)
[2018-12-12] MEDS ORDERED: NAPR-885 PO (09:55)
[2018-12-12] MEDS ORDERED: PULM0.5S INH (09:55)
[2018-12-12] MEDS ORDERED: LATU1TAB PO (09:55)
[2018-12-12] MEDS ORDERED: CLIN150C14 PO (09:55)
[2018-12-12] MEDS ORDERED: GLUC500T PO (09:55)
[2018-12-12] MEDS ORDERED: MIRA3350 PO (09:55)
[2018-12-12 10:00] LABS: AMPHETAMINES LEVEL URINE NEGATIVE (NEGATIVE); BARBITURATES URINE NEGATIVE (NEGATIVE); BENZODIAZEPINES URINE NEGATIVE (NEGATIVE); CANNABINOIDS URINE NEGATIVE (NEGATIVE); COCAINE METABOLITE URINE NEGATIVE (NEGATIVE); METHADONE URINE NEGATIVE (NEGATIVE); OPIATES URINE NEGATIVE (NEGATIVE); PHENCYCLIDINE URINE NEGATIVE (NEGATIVE)
[2018-12-12 10:05] LABS: ACETAMINOPHEN LEVEL < 2.0 UG/ML (10.0-30.0); ALBUMIN 3.6 GM/DL (3.2-5.2); ALT/SGPT 26 U/L (12-78); BILIRUBIN,DIRECT 0.2 MG/DL (0.0-0.2); BILIRUBIN,TOTAL 0.6 MG/DL (0.2-1.0); BLOOD UREA NITROGEN 14 MG/DL (7-18); CALCIUM LEVEL 8.2 MG/DL (8.5-10.1); CARBON DIOXIDE LEVEL 30 MEQ/L (21-32); CHLORIDE LEVEL 107 MEQ/L (98-107); CREATININE FOR GFR 0.82 MG/DL (0.55-1.30); ETHYL ALCOHOL (ETHANOL) < 0.003 % (0.000-0.010); GLOMERULAR FILTRATION RATE > 60.0 (>58); GLUCOSE, FASTING 87 MG/DL (70-100); POTASSIUM SERUM 4.5 MEQ/L (3.5-5.1); SALICYLATE LEVEL < 1.7 MG/DL (5.0-30.0); SODIUM LEVEL 142 MEQ/L (136-145); TOTAL PROTEIN 6.5 GM/DL (6.4-8.2)
[2018-12-12] MEDS ORDERED: MOM 30ML SUSPENSION UDC PO PRN (12:45)
[2018-12-12] MEDS ORDERED: MAALOX 30 ML SUSP *UDC PO PRN (12:45)
[2018-12-12] MEDS ORDERED: traZODone 50 MG TAB PO PRN (12:45)
[2018-12-12] MEDS ORDERED: ALBUTEROL SULFATE 2.5 MG/0.5 ML INH NEB SOLN INH PRN (14:15)
[2018-12-12] MEDS: NAPROXEN 250 MG TAB PO PRN (16:06)
[2018-12-12 16:30] VITALS: BP 138/88
[2018-12-12] MEDS ORDERED: LURASIDONE 20 MG TAB (LATUDA) PO ONE (18:00)
[2018-12-12] MEDS: metFORMIN (GLUCOPHAGE) 500 MG TAB PO SCH (18:07)
[2018-12-12] MEDS ORDERED: LURASIDONE HCL 40 MG TAB (LATUDA) PO SCH (18:30)
[2018-12-12] MEDS ORDERED: PRAZOSIN 1 MG CAP PO SCH (21:00)
[2018-12-12] MEDS: ARIPiprazole 2 MG TAB PO SCH (21:25)
[2018-12-12] MEDS: ATORVASTATIN 20 MG TAB PO SCH (21:25)
[2018-12-13] MEDS: LEVOTHYROXINE 25MCG TABLET (0.025MG) PO SCH (06:17)
[2018-12-13 06:43] VITALS: BP 111/57
[2018-12-13] MEDS: MIRALAX *UNIT DOSE* 17GM PACKET PO SCH (08:14)
[2018-12-13] MEDS: CLINDAMYCIN 150 MG CAP PO SCH ×3 (08:17→20:26)
[2018-12-13] MEDS: PANTOPRAZOLE 40MG TAB (PROTONIX) PO SCH (08:17)
[2018-12-13] MEDS: POTASSIUM CHLORIDE 10 MEQ SR TABLET PO SCH (08:17)
[2018-12-13] MEDS: FLUoxetine 20 MG CAP PO SCH (08:17)
[2018-12-13] MEDS: LORATADINE 10 MG TAB PO SCH (08:18)
[2018-12-13] MEDS: ARIPiprazole 2 MG TAB PO SCH ×2 (08:18→20:25)
[2018-12-13] MEDS: MONTELUKAST 10 MG TAB PO SCH (08:18)
[2018-12-13] MEDS: metFORMIN (GLUCOPHAGE) 500 MG TAB PO SCH ×2 (08:18→17:06)
[2018-12-13 08:23] LABS: BASO # 0.1 10^3/uL (0.0-0.2); BASO % 0.8 % (0.0-1.0); EOS # 0.4 10^3/uL (0.0-0.50); EOS % 4.9 % (0.0-3.0); HEMATOCRIT 39.2 % (36.0-47.0); HEMOGLOBIN 12.1 g/dl (12.0-15.5); LYMPH # 1.7 10^3/uL (1.5-4.5); LYMPH % 23.6 % (24.0-44.0); MEAN CORPUSCULAR HEMOGLOBIN 29.7 pg (27.0-33.0); MEAN CORPUSCULAR HGB CONC 30.9 g/dl (32.0-36.5); MEAN CORPUSCULAR VOLUME 96.3 fl (80.0-96.0); MONO # 0.5 10^3/uL (0.0-0.8); MONO % 6.7 % (0.0-5.0); NEUTROPHILS # 4.5 10^3/uL (1.8-7.7); NEUTROPHILS % 63.6 % (36.0-66.0); PLATELET COUNT, AUTOMATED 259 10^3/uL (150-450); RED BLOOD COUNT 4.07 10^6/uL (4.00-5.40); WHITE BLOOD COUNT 7.1 10^3/uL (4.0-10.0)
[2018-12-13 08:53] LABS: BLOOD UREA NITROGEN 13 MG/DL (7-18); CALCIUM LEVEL 8.5 MG/DL (8.5-10.1); CARBON DIOXIDE LEVEL 31 MEQ/L (21-32); CHLORIDE LEVEL 104 MEQ/L (98-107); CREATININE FOR GFR 0.83 MG/DL (0.55-1.30); GLOMERULAR FILTRATION RATE > 60.0 (>58); GLUCOSE, FASTING 87 MG/DL (70-100); POTASSIUM SERUM 4.5 MEQ/L (3.5-5.1); SODIUM LEVEL 140 MEQ/L (136-145)
[2018-12-13] MEDS: guaiFENesin SYRUP 200 MG/10 ML UDC PO PRN ×2 (10:18→17:05)
--- NOTE | 2018-12-13 11:10 | REP ---
CHEST PA AND LATERAL: 12/13/2018. CLINICAL HISTORY: Cough. COMPARISON: 09/28/2018, 09/25/2017. FINDINGS: Two views show the lungs adequately inflated. The CP angles are sharply defined. There is no definite effusion, lateral pleural thickening, or apical scarring. Some minor linear fibrotic change adjacent to left heart border in the left lung base, stable. I see no dense consolidation, definite atelectasis, nodule, or mass. The heart is not enlarged. The aorta and airway intact. The bony thorax shows no focal lesion. Lateral view shows a few cuffed bronchi in the perihilar regions that may reflect reactive airway disease or bronchitis. Bones are intact. IMPRESSION: 1. Some perihilar changes of bronchitis or reactive airway disease. No dense consolidation or effusion. There is some linear scarring left base adjacent to the heart border on the frontal view. Electronically Signed by Jose Antonio Marroquin MD 12/13/2018 11:27 A
--- NOTE | 2018-12-13 12:10 | HPE ---
DATE OF ADMISSION: 12/12/2018 HISTORY OF THE PRESENT ILLNESS: Please refer to psychiatric history and evaluation for further details on this admission. This examination and history is intended for medical issues which may need treatment, follow-up or consult on this 43-year-old female. PRIMARY CARE PHYSICIAN: Dr. Beyer at the [facility]. ALLERGIES: 1. ACETAMINOPHEN. 2. HYDROCODONE. 3. PENICILLIN. SOCIAL HISTORY: She is single. She lives at [facility] in [place]. She does not drink alcohol. She does not smoke cigarettes. She does not use recreational drugs. FAMILY HISTORY: Mother , chronic obstructive pulmonary disease (COPD). Father , unknown. PAST MEDICAL HISTORY: Schizophrenia. Bipolar disorder. Psychosis. Anxiety. Depression. History of suicidal ideation. History of urinary tract infections. He has been seen by [facility] urology in the past. Asthma. Hypothyroidism. Dyslipidemia. Gastroesophageal reflux disease (GERD). Obesity. Zwj-kfzcieu-iyoujshka diabetes type 2. PAST SURGICAL HISTORY: Cholecystectomy. Hernia repair times two. Right knee surgery times four. section times two. Hysterectomy. EKG: Normal sinus rhythm, 04/27/2018. LABORATORY STUDIES: WBC 6.9, hemoglobin 11.6, hematocrit 37.1, platelets 259. Electrolytes are normal. BUN 14, creatinine 0.8, glucose 87, calcium 8.2. Urine toxicology negative. HOME MEDICATIONS: - Pulmicort 0.5 one inhalation twice a day - clindamycin 350 mg by mouth three times a day for infected wisdom tooth - Flonase one spray each nostril daily as needed for congestion - Latuda 60 mg by mouth every evening - naproxen 500 mg by mouth twice a day as needed for pain - MiraLAX one packet daily for constipation - multivitamin one daily - albuterol one vial every 4 hours as needed shortness of breath - Abilify 2 mg by mouth twice a day - atorvastatin 20 mg by mouth at bedtime - fluoxetine 400 mg by mouth daily - levothyroxine 25 mcg by mouth daily - loratadine 10 mg by mouth daily - metformin 500 mg by mouth twice a day with meals - Singulair 10 mg by mouth daily - Protonix 40 mg by mouth daily - potassium 10 mEq by mouth daily - prazosin 8 mg by mouth at bedtime REVIEW OF SYSTEMS: 10-systems review was done. Her only complaint was of infected wisdom tooth for which she is getting clindamycin, left lower, and continued cough with thick mucous production. No chest pain or shortness of breath. Review of systems was otherwise negative. PHYSICAL EXAMINATION: 43-year-old obese female in no acute distress. Height 63 inches, weight 131.8 kg, BMI 51.5, blood pressure 117/70, pulse 88, respirations 18, temperature 98, oxygen saturation 95% on room air. The patient is alert and oriented times three. Pupils equal and react to light. EOM's are intact. Cornea and sclerae are clear. Conjunctivae are normal. No facial asymmetry. Pharynx, tongue and gums are pink and moist. Tongue is midline. Neck is supple without lymphadenopathy. No thyromegaly. No goiter. Carotids 2+ without bruit. Chest has scattered rhonchi, no wheeze or retraction. Heart is regular. Abdomen benign. Bowel sounds are positive. /rectal not done. Extremities show equal strength, full [id number]. No cyanosis, clubbing or edema. Peripheral pulses are equal and palpable bilaterally. Skin is warm and dry. IMPRESSION/PLAN: 1. Psychiatric plan per psychiatry. 2. Cough with mucous production, Robitussin 1 teaspoon by mouth every 6 hours as needed cough. Will get a chest x-ray. Sputum for culture and sensitivity. 3. Abscess left lower wisdom tooth. Continue clindamycin as ordered. Follow-up with dentist as an outpatient. 4. Gastroesophageal reflux disease (GERD). Stable. Continue Protonix. 5. Atj-iywegdw-myaeuovys diabetes type 2. Consistent carbohydrate diet. Continue metformin. Fingerstick blood sugars daily. 6. History of asthma. Continue nebulizer treatment. 7. Hypothyroidism. Continue levothyroxine. TSH is therapeutic. Recheck labs in the morning.
[2018-12-13] MEDS: hydrOXYzine 50 MG TAB PO PRN ×2 (13:49→20:25)
[2018-12-13] MEDS: LURASIDONE 20 MG TAB (LATUDA) PO SCH (17:05)
[2018-12-13 18:00] VITALS: BP 120/64
[2018-12-13] MEDS: ATORVASTATIN 20 MG TAB PO SCH (20:25)
[2018-12-13] MEDS: NAPROXEN 250 MG TAB PO PRN (20:27)
[2018-12-13 21:13] VITALS: BP 111/76
[2018-12-13] MEDS: PRAZOSIN 1 MG CAP PO SCH (21:13)
[2018-12-14] MEDS: LEVOTHYROXINE 25MCG TABLET (0.025MG) PO SCH (06:11)
[2018-12-14 07:00] VITALS: BP 145/80
[2018-12-14] MEDS: metFORMIN (GLUCOPHAGE) 500 MG TAB PO SCH ×2 (07:32→17:16)
[2018-12-14] MEDS: CLINDAMYCIN 150 MG CAP PO SCH ×3 (08:15→21:00)
[2018-12-14] MEDS: MONTELUKAST 10 MG TAB PO SCH (08:15)
[2018-12-14] MEDS: FLUoxetine 20 MG CAP PO SCH (08:15)
[2018-12-14] MEDS: PANTOPRAZOLE 40MG TAB (PROTONIX) PO SCH (08:15)
[2018-12-14] MEDS: ARIPiprazole 2 MG TAB PO SCH (08:15)
[2018-12-14] MEDS: MIRALAX *UNIT DOSE* 17GM PACKET PO SCH (08:15)
[2018-12-14] MEDS: POTASSIUM CHLORIDE 10 MEQ SR TABLET PO SCH (08:16)
[2018-12-14] MEDS: LORATADINE 10 MG TAB PO SCH (08:16)
[2018-12-14] MEDS: hydrOXYzine 50 MG TAB PO PRN (08:56)
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
[2018-12-14] MEDS: guaiFENesin SYRUP 200 MG/10 ML UDC PO PRN (15:34)
[2018-12-14 18:00] VITALS: BP 138/64
[2018-12-14] MEDS: LURASIDONE 20 MG TAB (LATUDA) PO SCH (18:57)
[2018-12-14] MEDS: PRAZOSIN 1 MG CAP PO SCH (21:00)
[2018-12-14] MEDS: ATORVASTATIN 20 MG TAB PO SCH (21:00)
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
[2018-12-15] MEDS: LEVOTHYROXINE 25MCG TABLET (0.025MG) PO SCH (06:16)
[2018-12-15 06:40] VITALS: BP 103/55
[2018-12-15] MEDS: metFORMIN (GLUCOPHAGE) 500 MG TAB PO SCH ×2 (07:45→17:06)
[2018-12-15] MEDS: PANTOPRAZOLE 40MG TAB (PROTONIX) PO SCH (08:49)
[2018-12-15] MEDS: FLUoxetine 20 MG CAP PO SCH (08:50)
[2018-12-15] MEDS: POTASSIUM CHLORIDE 10 MEQ SR TABLET PO SCH (08:50)
[2018-12-15] MEDS: MONTELUKAST 10 MG TAB PO SCH (08:50)
[2018-12-15] MEDS: MIRALAX *UNIT DOSE* 17GM PACKET PO SCH (08:50)
[2018-12-15] MEDS: LORATADINE 10 MG TAB PO SCH (08:50)
[2018-12-15] MEDS: CLINDAMYCIN 150 MG CAP PO SCH ×3 (08:50→21:00)
[2018-12-15] MEDS: guaiFENesin SYRUP 200 MG/10 ML UDC PO PRN (13:32)
[2018-12-15] MEDS: hydrOXYzine 50 MG TAB PO PRN (17:06)
[2018-12-15] MEDS: LURASIDONE 20 MG TAB (LATUDA) PO SCH (17:59)
[2018-12-15 18:00] VITALS: BP 113/59
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
[2018-12-15] MEDS: PRAZOSIN 1 MG CAP PO SCH (21:00)
[2018-12-15] MEDS: ATORVASTATIN 20 MG TAB PO SCH (21:00)
[2018-12-16 06:45] VITALS: BP 113/55
[2018-12-16] MEDS: LEVOTHYROXINE 25MCG TABLET (0.025MG) PO SCH (06:45)
[2018-12-16] MEDS: metFORMIN (GLUCOPHAGE) 500 MG TAB PO SCH (07:43)
[2018-12-16] MEDS: guaiFENesin SYRUP 200 MG/10 ML UDC PO PRN (07:44)
[2018-12-16] MEDS: MIRALAX *UNIT DOSE* 17GM PACKET PO SCH (08:21)
[2018-12-16] MEDS: MONTELUKAST 10 MG TAB PO SCH (08:22)
[2018-12-16] MEDS: PANTOPRAZOLE 40MG TAB (PROTONIX) PO SCH (08:22)
[2018-12-16] MEDS: FLUoxetine 20 MG CAP PO SCH (08:22)
[2018-12-16] MEDS: POTASSIUM CHLORIDE 10 MEQ SR TABLET PO SCH (08:22)
[2018-12-16] MEDS: CLINDAMYCIN 150 MG CAP PO SCH (08:22)
[2018-12-16] MEDS: LORATADINE 10 MG TAB PO SCH (08:22)
[2018-12-16] MEDS ORDERED: ARIP5TA PO (09:30)
[2018-12-16] MEDS ORDERED: GUAI5EL PO (09:30)
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
== END 2018-12-16 11:20 | disposition home or self-care (01) | DRG 753 ==
LOC: M ED 08:54 → M ED INP 12:36 → M PSY 16:15
PROVIDERS: ADMIT Psychiatry & Neurology Psychiatry; ATTEND Psychiatry & Neurology Psychiatry
DX: F31.81 Bipolar II disorder (principal); Z68.43 Body mass index [BMI] 50.0-59.9, adult; E11.9 Type 2 diabetes mellitus without complications; E03.9 Hypothyroidism, unspecified; F43.10 Post-traumatic stress disorder, unspecified; F41.1 Generalized anxiety disorder; J45.909 Unspecified asthma, uncomplicated; E78.5 Hyperlipidemia, unspecified; K21.9 Gastro-esophageal reflux disease without esophagitis; K04.7 Periapical abscess without sinus; E66.9 Obesity, unspecified; Z91.410 Personal history of adult physical and sexual abuse; Z88.5 Allergy status to narcotic agent; Z88.6 Allergy status to analgesic agent; Z88.0 Allergy status to penicillin; Z87.440 Personal history of urinary (tract) infections; Z90.49 Acquired absence of other specified parts of digestive tract; Z90.710 Acquired absence of both cervix and uterus; Z79.84 Long term (current) use of oral hypoglycemic drugs; Z79.899 Other long term (current) drug therapy

== ENCOUNTER 2018-12-19 13:10 | Emergency (ER) | payer MEDICAID ==
[~2018-12-19] VITALS: Ht 160 cm; Wt 131.8 kg
[~2018-12-19 13:10] MED LIST changes: +ARIP5TA PO; +CLIN150C14 PO; +FLON1SPR NARES; +GLUC500T PO; +GUAI5EL PO; +LATU1TAB PO; +MIRA3350 PO; +NAPR-885 PO; +TAB-TAB PO
[2018-12-19 13:53] LABS: HEMATOCRIT 36.2 % (36.0-47.0); HEMOGLOBIN 11.2 g/dl (12.0-15.5); MEAN CORPUSCULAR HEMOGLOBIN 29.6 pg (27.0-33.0); MEAN CORPUSCULAR HGB CONC 30.9 g/dl (32.0-36.5); MEAN CORPUSCULAR VOLUME 95.8 fl (80.0-96.0); PLATELET COUNT, AUTOMATED 239 10^3/uL (150-450); RED BLOOD COUNT 3.78 10^6/uL (4.00-5.40); WHITE BLOOD COUNT 7.7 10^3/uL (4.0-10.0)
[2018-12-19 14:13] LABS: AMPHETAMINES LEVEL URINE NEGATIVE (NEGATIVE); BARBITURATES URINE NEGATIVE (NEGATIVE); BENZODIAZEPINES URINE NEGATIVE (NEGATIVE); CANNABINOIDS URINE NEGATIVE (NEGATIVE); COCAINE METABOLITE URINE NEGATIVE (NEGATIVE); METHADONE URINE NEGATIVE (NEGATIVE); OPIATES URINE NEGATIVE (NEGATIVE); PHENCYCLIDINE URINE NEGATIVE (NEGATIVE)
[2018-12-19 14:38] LABS: ACETAMINOPHEN LEVEL < 2.0 UG/ML (10.0-30.0); ALBUMIN 3.3 GM/DL (3.2-5.2); ALT/SGPT 23 U/L (12-78); BILIRUBIN,DIRECT 0.1 MG/DL (0.0-0.2); BILIRUBIN,TOTAL 0.3 MG/DL (0.2-1.0); BLOOD UREA NITROGEN 15 MG/DL (7-18); CALCIUM LEVEL 8.2 MG/DL (8.5-10.1); CARBON DIOXIDE LEVEL 28 MEQ/L (21-32); CHLORIDE LEVEL 108 MEQ/L (98-107); CREATININE FOR GFR 0.81 MG/DL (0.55-1.30); ETHYL ALCOHOL (ETHANOL) < 0.003 % (0.000-0.010); GLOMERULAR FILTRATION RATE > 60.0 (>58); GLUCOSE, FASTING 105 MG/DL (70-100); SALICYLATE LEVEL < 1.7 MG/DL (5.0-30.0); SODIUM LEVEL 145 MEQ/L (136-145); TOTAL PROTEIN 6.1 GM/DL (6.4-8.2)
[2018-12-19 16:46] VITALS: BP 144/81
--- NOTE | 2018-12-20 17:43 | ECGEPIP ---
Stationary ECG Study [facility] - ED Test Date: 2018-12-19 Pat Name: MARY KAY ENRIQUEZ Department: Room: - Gender: F Vulnerability Researcher: palak : 1975 Requested By: Ciro Trotter Order Number: [id number] Reading MD: Catalina Gibson Measurements Intervals [place] Rate: 69 P: 58 GA: 150 QRS: 6 QRSD: 105 T: 43 QT: 392 QTc: 420 Interpretive Statements SINUS RHYTHM NONSPECIFIC T-WAVE ABNORMALITY SIMILAR 09/27/18 Electronically Signed On 12-20-2018 17:43:03 EST by Catalina Gibson
== END 2018-12-19 16:48 ==
LOC: M ED 13:10
DX: F25.0 Schizoaffective disorder, bipolar type (principal); R45.850 Homicidal ideations; R45.1 Restlessness and agitation; E11.9 Type 2 diabetes mellitus without complications; F43.10 Post-traumatic stress disorder, unspecified; K21.9 Gastro-esophageal reflux disease without esophagitis; J45.909 Unspecified asthma, uncomplicated; E78.5 Hyperlipidemia, unspecified; E66.9 Obesity, unspecified; Z79.84 Long term (current) use of oral hypoglycemic drugs; Z79.899 Other long term (current) drug therapy; Z88.6 Allergy status to analgesic agent; Z88.5 Allergy status to narcotic agent; Z88.0 Allergy status to penicillin
CPT/HCPCS: 80048; 80076; 80307; 84443; 85027; 93005; 99285; G0480

== ENCOUNTER → 2019-01-14 | Outpatient (CLI) | payer MEDICAID ==
[~2019-01-14] MED LIST changes: +DICY20TA PO; +IMOD2TAB16 PO
--- NOTE | 2019-01-14 14:23 | REP ---
MRI LEFT KNEE: TECHNIQUE: Axial proton density fat saturation, sagittal proton density T2 STIR, water excitation, coronal proton density, proton density fat saturation. The menisci show no evidence of a tear. The cruciate and collateral ligaments are intact. The extensor mechanism is intact. There is moderate diffuse chondromalacia along the lateral patellar facet. There is mild to moderate global chondromalacia of the medial and lateral femoral condyle. There is mild chondromalacia along the medial tibial plateau. There is a focal cartilaginous defect centrally of the lateral tibial plateau with surrounding moderate chondromalacia. The defect extends down to the bone and has a width of about 2 mm. There is adjacent subchondral marrow edema and cystic change in the tibial plateau. There is some minimal subchondral marrow edema centrally in the lateral femoral condyle. There is a relatively small joint effusion. Small amount of fluid extends into the medial popliteal fossa between the semimembranosus and medial head of gastrocnemius. IMPRESSION: No evidence of meniscal tear. Cruciate and collateral ligaments intact. Moderate chondromalacia of the lateral patellar facet. Moderate chondromalacia centrally of the lateral tibial plateau with focal 2 mm chondral defect down to the bone with associated subchondral marrow edema and cystic change. Moderate diffuse chondromalacia along the femoral condyles. Small joint effusion. Electronically Signed by Sudheer Heller MD 01/14/2019 04:09 P
== END ==
LOC: M RAD 12:33
DX: M22.42 Chondromalacia patellae, left knee (principal); M25.462 Effusion, left knee

== ENCOUNTER 2019-01-15 18:28 | Emergency (ER) | payer MEDICAID ==
[~2019-01-15] VITALS: Ht 160 cm; Wt 127.7 kg
[~2019-01-15 18:28] MED LIST changes: -DICY20TA PO; -IMOD2TAB16 PO
[2019-01-15 20:13] LABS: BASO # 0.1 10^3/uL (0.0-0.2); EOS # 0.3 10^3/uL (0.0-0.50); EOS % 2.9 % (0.0-3.0); HEMATOCRIT 38.9 % (36.0-47.0); LYMPH # 2.2 10^3/uL (1.5-4.5); LYMPH % 25.4 % (24.0-44.0); MEAN CORPUSCULAR HEMOGLOBIN 29.1 pg (27.0-33.0); MEAN CORPUSCULAR HGB CONC 30.8 g/dl (32.0-36.5); MEAN CORPUSCULAR VOLUME 94.4 fl (80.0-96.0); MONO # 0.5 10^3/uL (0.0-0.8); MONO % 5.9 % (0.0-5.0); NEUTROPHILS # 5.5 10^3/uL (1.8-7.7); NEUTROPHILS % 64.5 % (36.0-66.0); PLATELET COUNT, AUTOMATED 298 10^3/uL (150-450); RED BLOOD COUNT 4.12 10^6/uL (4.00-5.40); WHITE BLOOD COUNT 8.6 10^3/uL (4.0-10.0)
[2019-01-15 20:36] LABS: ALBUMIN 3.6 GM/DL (3.2-5.2); ALT/SGPT 21 U/L (12-78); BILIRUBIN,DIRECT 0.1 MG/DL (0.0-0.2); BILIRUBIN,TOTAL 0.6 MG/DL (0.2-1.0); BLOOD UREA NITROGEN 13 MG/DL (7-18); CALCIUM LEVEL 9.1 MG/DL (8.5-10.1); CARBON DIOXIDE LEVEL 35 MEQ/L (21-32); CHLORIDE LEVEL 104 MEQ/L (98-107); CREATININE FOR GFR 0.88 MG/DL (0.55-1.30); GLOMERULAR FILTRATION RATE > 60.0 (>58); GLUCOSE, FASTING 95 MG/DL (70-100); POTASSIUM SERUM 4.7 MEQ/L (3.5-5.1); SODIUM LEVEL 143 MEQ/L (136-145)
[2019-01-15] MEDS ORDERED: DICY20TA PO (21:27)
[2019-01-15] MEDS ORDERED: IMOD2TAB16 PO (21:27)
[2019-01-15 21:39] VITALS: BP 131/74
--- NOTE | 2019-01-15 23:21 | REP ---
KUB ABDOMEN AND PELVIS: Two KUB films of abdomen and pelvis performed. There is no evidence of bowel obstruction. No dilated small bowel loops are seen. There are metallic clips in the right upper quadrant. Multiple metallic clips are seen in the pelvis. There are also multiple phleboliths in the pelvis. IMPRESSION: No evidence of bowel obstruction. Electronically Signed by Sudheer Heller MD 01/16/2019 06:49 P
== END 2019-01-15 21:50 | disposition home or self-care (01) ==
LOC: M ED 18:28 → CANBEDREQ 19:51 → M ED 21:50
DX: R10.9 Unspecified abdominal pain (principal); R19.7 Diarrhea, unspecified; E78.00 Pure hypercholesterolemia, unspecified; J45.909 Unspecified asthma, uncomplicated; J44.9 Chronic obstructive pulmonary disease, unspecified; K21.9 Gastro-esophageal reflux disease without esophagitis; E11.9 Type 2 diabetes mellitus without complications; E03.9 Hypothyroidism, unspecified; F41.9 Anxiety disorder, unspecified; F32.9 Major depressive disorder, single episode, unspecified; Z72.0 Tobacco use; Z79.84 Long term (current) use of oral hypoglycemic drugs; Z79.899 Other long term (current) drug therapy; Z88.0 Allergy status to penicillin; Z88.6 Allergy status to analgesic agent; Z88.5 Allergy status to narcotic agent; Z91.040 Latex allergy status

== ENCOUNTER 2019-01-21 19:42 | Emergency (ER) | payer MEDICAID ==
[~2019-01-21] VITALS: Ht 160 cm; Wt 126.8 kg
[~2019-01-21 19:42] MED LIST changes: +ARIP1TAB4 PO; +ARIP1TAB6 PO; -ARIP2TAB PO; -ARIP5TA PO; +DICY20TA PO; +IMOD2TAB16 PO; -NAPR-50 PO; +NAPR-837 PO; -SENN1TAB2 PO; +SENN1TAB40 PO; +VITA100T89 PO; -VITA100T92 PO
[2019-01-21 19:57] VITALS: BP 109/65
== END 2019-01-21 20:23 | disposition home or self-care (01) ==
LOC: M ED 19:42
DX: Z04.6 Encounter for general psychiatric examination, requested by authority (principal); F43.0 Acute stress reaction; J45.909 Unspecified asthma, uncomplicated; K21.9 Gastro-esophageal reflux disease without esophagitis; F25.9 Schizoaffective disorder, unspecified; G31.84 Mild cognitive impairment of uncertain or unknown etiology; Z79.890 Hormone replacement therapy; Z79.899 Other long term (current) drug therapy; Z79.84 Long term (current) use of oral hypoglycemic drugs; Z88.0 Allergy status to penicillin; Z88.5 Allergy status to narcotic agent; Z88.8 Allergy status to other drugs, medicaments and biological substances; Z91.040 Latex allergy status

== ENCOUNTER 2019-01-28 09:45 | Inpatient (IN) | payer MEDICAID ==
[~2019-01-28] VITALS: Ht 162.6 cm; Wt 127.3 kg
[2019-01-28] MEDS ORDERED: MACR100C43 PO (09:57)
[2019-01-28] MEDS ORDERED: FOLI1TAB11 PO (09:57)
[2019-01-28] MEDS ORDERED: DIVA1CAP PO (09:57)
[2019-01-28] MEDS ORDERED: THIA100T7 PO (09:57)
[2019-01-28] MEDS ORDERED: OXYB5TAB10 PO (09:57)
[2019-01-28] MEDS ORDERED: VITA50005 PO (09:57)
[2019-01-28] MEDS ORDERED: PRAZ1CAP PO (09:57)
[2019-01-28 10:41] LABS: BASO % 0.5 % (0.0-1.0); EOS # 0.2 10^3/uL (0.0-0.50); EOS % 3.2 % (0.0-3.0); HEMATOCRIT 39.9 % (36.0-47.0); HEMOGLOBIN 12.3 g/dl (12.0-15.5); LYMPH # 1.7 10^3/uL (1.5-4.5); LYMPH % 21.9 % (24.0-44.0); MEAN CORPUSCULAR HEMOGLOBIN 29.4 pg (27.0-33.0); MEAN CORPUSCULAR HGB CONC 30.8 g/dl (32.0-36.5); MEAN CORPUSCULAR VOLUME 95.5 fl (80.0-96.0); MONO # 0.4 10^3/uL (0.0-0.8); MONO % 5.7 % (0.0-5.0); NEUTROPHILS # 5.2 10^3/uL (1.8-7.7); NEUTROPHILS % 68.4 % (36.0-66.0); PLATELET COUNT, AUTOMATED 254 10^3/uL (150-450); RED BLOOD COUNT 4.18 10^6/uL (4.00-5.40); WHITE BLOOD COUNT 7.6 10^3/uL (4.0-10.0)
[2019-01-28 11:00] LABS: AMPHETAMINES LEVEL URINE NEGATIVE (NEGATIVE); BARBITURATES URINE NEGATIVE (NEGATIVE); BENZODIAZEPINES URINE NEGATIVE (NEGATIVE); CANNABINOIDS URINE NEGATIVE (NEGATIVE); COCAINE METABOLITE URINE NEGATIVE (NEGATIVE); METHADONE URINE NEGATIVE (NEGATIVE); OPIATES URINE NEGATIVE (NEGATIVE); PHENCYCLIDINE URINE NEGATIVE (NEGATIVE)
[2019-01-28] MEDS ORDERED: DICYCLOMINE 10 MG CAP PO ONE (11:00)
[2019-01-28] MEDS ORDERED: DEPA250T32 PO (11:09)
[2019-01-28 11:20] LABS: ALBUMIN 3.3 GM/DL (3.2-5.2); ALT/SGPT 22 U/L (12-78); BILIRUBIN,DIRECT 0.1 MG/DL (0.0-0.2); BILIRUBIN,TOTAL 0.5 MG/DL (0.2-1.0); BLOOD UREA NITROGEN 14 MG/DL (7-18); CALCIUM LEVEL 8.6 MG/DL (8.5-10.1); CARBON DIOXIDE LEVEL 33 MEQ/L (21-32); CHLORIDE LEVEL 107 MEQ/L (98-107); CREATININE FOR GFR 0.76 MG/DL (0.55-1.30); ETHYL ALCOHOL (ETHANOL) < 0.003 % (0.000-0.010); GLOMERULAR FILTRATION RATE > 60.0 (>58); GLUCOSE, FASTING 109 MG/DL (70-100); POTASSIUM SERUM 4.8 MEQ/L (3.5-5.1); SALICYLATE LEVEL < 1.7 MG/DL (5.0-30.0); SODIUM LEVEL 143 MEQ/L (136-145); TOTAL PROTEIN 6.3 GM/DL (6.4-8.2); VALPROIC ACID (DEPAKOTE) 25.4 UG/ML (50.0-100.0)
[2019-01-28 11:21] LABS: ACETAMINOPHEN LEVEL < 2.0 UG/ML (10.0-30.0)
[2019-01-28] MEDS ORDERED: DIVALPROEX 500 MG TAB PO ONE (11:30)
[2019-01-28] MEDS ORDERED: metFORMIN (GLUCOPHAGE) 500 MG TAB PO ONE (11:30)
[2019-01-28] MEDS ORDERED: NITROFURANTOIN (MACROBID) 100 MG CAP PO ONE (11:30)
[2019-01-28] MEDS ORDERED: LEVOTHYROXINE 25MCG TABLET (0.025MG) PO ONE (11:30)
[2019-01-28] MEDS ORDERED: FLUoxetine 20 MG CAP PO ONE (11:30)
[2019-01-28] MEDS ORDERED: PANTOPRAZOLE 40MG TAB (PROTONIX) PO ONE (11:30)
[2019-01-28] MEDS ORDERED: oxyBUTYnin 5 MG TAB PO ONE (12:30)
[2019-01-28] MEDS ORDERED: DICY20TA PO (13:29)
[2019-01-28] MEDS ORDERED: DIVA500T9 PO (13:29)
[2019-01-28] MEDS ORDERED: LOPE2CAP PO (13:29)
[2019-01-28] MEDS ORDERED: VENTAER INH (13:29)
[2019-01-28] MEDS ORDERED: NYST1POW9 TOP (13:30)
[2019-01-28] MEDS ORDERED: ABIL10TA9 PO (13:30)
[2019-01-28] MEDS ORDERED: HYDR50TA70 PO (13:30)
[2019-01-28] MEDS ORDERED: MAALOX 30 ML SUSP *UDC PO PRN (14:00)
[2019-01-28] MEDS ORDERED: MOM 30ML SUSPENSION UDC PO PRN (14:00)
[2019-01-28] MEDS ORDERED: NYSTATIN 100,000 UNITS/GM TOPICAL PWD 15 GM TOP PRN (19:15)
[2019-01-28 19:29] VITALS: BP 116/66
[2019-01-28] MEDS: BUDESONIDE 0.5 MG/2 ML INHALATION SUSPENSION INH SCH (20:00)
[2019-01-28] MEDS ORDERED: VITAMIN D 50,000 UNITS CAPSULE (ERGOCALCIFEROL 1.25MG) PO SCH (20:00)
[2019-01-28] MEDS: PRAZOSIN 1 MG CAP PO SCH (20:59)
[2019-01-28] MEDS: ATORVASTATIN 20 MG TAB PO SCH (20:59)
[2019-01-28] MEDS: MONTELUKAST 10 MG TAB PO SCH (21:00)
[2019-01-28] MEDS: DIVALPROEX 500MG *ER* TAB PO SCH (21:00)
[2019-01-28] MEDS: ALBUTEROL SULFATE 2.5 MG/0.5 ML INH NEB SOLN INH PRN (21:30)
[2019-01-28] MEDS: NITROFURANTOIN (MACROBID) 100 MG CAP PO SCH (22:11)
[2019-01-29] MEDS ORDERED: LEVOTHYROXINE 25MCG TABLET (0.025MG) PO SCH (06:00)
[2019-01-29] MEDS: LEVOTHYROXINE 25MCG TABLET (0.025MG) PO SCH (06:23)
[2019-01-29 06:52] VITALS: BP 102/47
[2019-01-29] MEDS: metFORMIN (GLUCOPHAGE) 500 MG TAB PO SCH ×2 (07:39→17:12)
[2019-01-29] MEDS: NITROFURANTOIN (MACROBID) 100 MG CAP PO SCH ×2 (08:54→20:16)
[2019-01-29] MEDS: FOLIC ACID 1 MG TAB PO SCH (08:54)
[2019-01-29] MEDS: THIAMINE 100 MG TAB PO SCH (08:55)
[2019-01-29] MEDS: FLUoxetine 20 MG CAP PO SCH (08:55)
[2019-01-29] MEDS: PANTOPRAZOLE 40MG TAB (PROTONIX) PO SCH (08:55)
[2019-01-29] MEDS: ALBUTEROL SULFATE 2.5 MG/0.5 ML INH NEB SOLN INH PRN ×2 (09:11→21:15)
[2019-01-29] MEDS: BUDESONIDE 0.5 MG/2 ML INHALATION SUSPENSION INH SCH ×2 (09:11→20:00)
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
[2019-01-29] MEDS: BENZTROPINE 1 MG TAB PO SCH ×2 (12:15→20:16)
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
[2019-01-29 18:29] VITALS: BP 110/58
[2019-01-29] MEDS: IBUPROFEN 600 MG TAB PO PRN (20:16)
[2019-01-29] MEDS: MONTELUKAST 10 MG TAB PO SCH (20:16)
[2019-01-29] MEDS: DIVALPROEX 500MG *ER* TAB PO SCH (20:16)
[2019-01-29] MEDS: ATORVASTATIN 20 MG TAB PO SCH (20:16)
[2019-01-29] MEDS: DICYCLOMINE 10 MG CAP PO PRN (21:05)
[2019-01-29] MEDS: PRAZOSIN 1 MG CAP PO SCH (21:33)
[2019-01-30] MEDS: IBUPROFEN 600 MG TAB PO PRN ×2 (05:47→15:40)
[2019-01-30] MEDS: LEVOTHYROXINE 25MCG TABLET (0.025MG) PO SCH (05:57)
[2019-01-30] MEDS: metFORMIN (GLUCOPHAGE) 500 MG TAB PO SCH ×2 (07:27→17:18)
[2019-01-30] MEDS: BUDESONIDE 0.5 MG/2 ML INHALATION SUSPENSION INH SCH ×2 (08:11→20:40)
[2019-01-30 08:20] LABS: CHOLESTEROL RISK RATIO 3.652 (<5); THYROID STIMULATING HORMONE 1.99 uIU/ML (0.358-3.740)
[2019-01-30] MEDS: PANTOPRAZOLE 40MG TAB (PROTONIX) PO SCH (08:53)
[2019-01-30] MEDS: FOLIC ACID 1 MG TAB PO SCH (08:53)
[2019-01-30] MEDS: NITROFURANTOIN (MACROBID) 100 MG CAP PO SCH ×2 (08:53→20:43)
[2019-01-30] MEDS: FLUoxetine 20 MG CAP PO SCH (08:53)
[2019-01-30] MEDS: BENZTROPINE 1 MG TAB PO SCH ×2 (08:53→20:43)
[2019-01-30] MEDS: THIAMINE 100 MG TAB PO SCH (08:53)
[2019-01-30 09:45] VITALS: BP 104/62
[2019-01-30 09:49] LABS: HEMOGLOBIN A1c 5.6 %
[2019-01-30] MEDS: DICYCLOMINE 10 MG CAP PO PRN ×2 (10:29→20:42)
[2019-01-30 18:00] VITALS: BP 98/58
--- NOTE | 2019-01-30 18:00 | MHIPN ---
DATE: 01/30/2019 SUBJECTIVE: "I'm doing better. The medications are helping me. OBJECTIVE: She is a 43-year-old female. Patient reportedly called the behavioral health unit (U) crisis line, reporting that she had suicidal thoughts. She wanted to walk into traffic. She reportedly was compliant with her medications. Only one time she missed her medication. Currently, her sleep and appetite are good. MENTAL STATUS EXAMINATION: Appearance: Casually dressed. Behavior is cooperative. Eye contact is normal. Speech is somewhat loud, rapid, mildly pressured. Mood is somewhat elated. Affect is appropriate for the mood. Thought content: Denied any suicidal or homicidal ideas. Denied any paranoia. Cognition: Alert and oriented to time, place, and person. Memory is intact. Denied any auditory or visual hallucinations. Insight and judgment are limited. DIAGNOSIS: Bipolar disorder, most recent episode hypomanic. PLAN: Continue current medication. ESTIMATED LENGTH OF STAY: 3-4 days. Patient is still somewhat hypomanic. Needs further stabilization. CURRENT MEDICATIONS: - fluoxetine 40 mg once daily - Cogentin 1 mg twice a day - levothyroxine 25 mcg - aripiprazole 5 mg twice a day - Depakote 1000 mg at night - prazosin 1 mg at night VITAL SIGNS: Temperature 98.4, pulse is 66, respiratory rate is 16, blood pressure 104/62.
[2019-01-30] MEDS: ALBUTEROL SULFATE 2.5 MG/0.5 ML INH NEB SOLN INH PRN (20:41)
[2019-01-30] MEDS: MONTELUKAST 10 MG TAB PO SCH (20:43)
[2019-01-30] MEDS: ATORVASTATIN 20 MG TAB PO SCH (20:43)
[2019-01-30] MEDS: DIVALPROEX 500MG *ER* TAB PO SCH (20:43)
[2019-01-30] MEDS: PRAZOSIN 1 MG CAP PO SCH (22:07)
[2019-01-31] MEDS: IBUPROFEN 600 MG TAB PO PRN ×2 (04:01→14:51)
[2019-01-31] MEDS: LEVOTHYROXINE 25MCG TABLET (0.025MG) PO SCH (05:45)
[2019-01-31 06:53] VITALS: BP 128/59
[2019-01-31] MEDS: metFORMIN (GLUCOPHAGE) 500 MG TAB PO SCH ×2 (07:29→17:17)
[2019-01-31] MEDS: BUDESONIDE 0.5 MG/2 ML INHALATION SUSPENSION INH SCH ×2 (07:33→20:35)
[2019-01-31] MEDS: BENZTROPINE 1 MG TAB PO SCH ×2 (08:43→21:06)
[2019-01-31] MEDS: NITROFURANTOIN (MACROBID) 100 MG CAP PO SCH ×2 (08:43→21:01)
[2019-01-31] MEDS: PANTOPRAZOLE 40MG TAB (PROTONIX) PO SCH (08:43)
[2019-01-31] MEDS: FLUoxetine 20 MG CAP PO SCH (08:43)
[2019-01-31] MEDS: FOLIC ACID 1 MG TAB PO SCH (08:43)
[2019-01-31] MEDS: THIAMINE 100 MG TAB PO SCH (08:43)
[2019-01-31] MEDS: ALBUTEROL SULFATE 2.5 MG/0.5 ML INH NEB SOLN INH PRN ×2 (09:04→22:33)
[2019-01-31] MEDS: DICYCLOMINE 10 MG CAP PO PRN (09:51)
[2019-01-31] MEDS ORDERED: hydrOXYzine 50 MG TAB PO PRN (15:00)
[2019-01-31 18:00] VITALS: BP 111/71
--- NOTE | 2019-01-31 19:58 | MHIPN ---
DATE: 01/31/2019 SUBJECTIVE: "I slept better and I am not depressed." OBJECTIVE: She is a 43-year-old female who was admitted because of suicidal thoughts. She wanted to walk in front of running traffic. Currently, she has been doing well. She lives with a roommate in [facility] ([facility] MENTAL STATUS EXAMINATION: Appearance: Casually dressed. Behavior is cooperative. Made good eye contact. Speech is coherent, goal directed. Thought content: Denied any paranoia. Denied any suicidal or homicidal ideas. Cognition: Alert and oriented to time, place, and person. Memory is intact. Denied any auditory or visual hallucinations. DIAGNOSIS: Bipolar disorder, most recent episode hypomanic. CURRENT MEDICATIONS: - fluoxetine 40 mg once daily - Cogentin 1 mg twice a day - levothyroxine 25 mcg - aripiprazole 5 mg twice a day - Depakote 1000 mg at night, due for a Depakote level on 02/02/2019 - prazosin 1 mg at night VITAL SIGNS: Temperature 97.7, pulse is 67, respiratory rate is 16, blood pressure 128/59. PLAN: Continue current medications. Continue individual and group therapy. The patient currently is having mild mood swings and needs further stabilization.
[2019-01-31 21:02] VITALS: BP 124/78
[2019-01-31] MEDS: MONTELUKAST 10 MG TAB PO SCH (21:02)
[2019-01-31] MEDS: DIVALPROEX 500MG *ER* TAB PO SCH (21:02)
[2019-01-31] MEDS: ATORVASTATIN 20 MG TAB PO SCH (21:02)
[2019-01-31] MEDS: PRAZOSIN 1 MG CAP PO SCH (21:02)
[2019-01-31 21:08] VITALS: BP 131/64
[2019-02-01] MEDS: LEVOTHYROXINE 25MCG TABLET (0.025MG) PO SCH (05:58)
[2019-02-01 06:22] VITALS: BP 132/59
[2019-02-01] MEDS: metFORMIN (GLUCOPHAGE) 500 MG TAB PO SCH (07:48)
[2019-02-01] MEDS: ALBUTEROL SULFATE 2.5 MG/0.5 ML INH NEB SOLN INH PRN ×2 (07:52→13:23)
[2019-02-01] MEDS: BUDESONIDE 0.5 MG/2 ML INHALATION SUSPENSION INH SCH (07:52)
[2019-02-01] MEDS: THIAMINE 100 MG TAB PO SCH (08:33)
[2019-02-01] MEDS: FLUoxetine 20 MG CAP PO SCH (08:33)
[2019-02-01] MEDS: FOLIC ACID 1 MG TAB PO SCH (08:33)
[2019-02-01] MEDS: BENZTROPINE 1 MG TAB PO SCH (08:33)
[2019-02-01] MEDS: PANTOPRAZOLE 40MG TAB (PROTONIX) PO SCH (08:33)
[2019-02-01] MEDS: DICYCLOMINE 10 MG CAP PO PRN (08:33)
[2019-02-01] MEDS: NITROFURANTOIN (MACROBID) 100 MG CAP PO SCH (08:33)
[2019-02-01] MEDS ORDERED: VITA50005 PO (11:11)
[2019-02-01] MEDS ORDERED: DICY20TA PO (11:11)
[2019-02-01] MEDS ORDERED: PULM0.5S INH (11:11)
[2019-02-01] MEDS ORDERED: BENZ-52 PO (15:17)
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
== END 2019-02-01 14:05 | disposition home or self-care (01) | DRG 753 ==
LOC: M ED 09:45 → M ED INP 13:56 → M PSY 17:59
PROVIDERS: ADMIT Psychiatry & Neurology Psychiatry; ATTEND Psychiatry & Neurology Psychiatry
DX: F31.81 Bipolar II disorder (principal); R45.850 Homicidal ideations; F79 Unspecified intellectual disabilities; E11.9 Type 2 diabetes mellitus without complications; F60.89 Other specific personality disorders; Z79.899 Other long term (current) drug therapy; Z88.0 Allergy status to penicillin; Z91.040 Latex allergy status; Z88.5 Allergy status to narcotic agent; Z88.8 Allergy status to other drugs, medicaments and biological substances; E78.5 Hyperlipidemia, unspecified; E03.9 Hypothyroidism, unspecified; J45.909 Unspecified asthma, uncomplicated

== ENCOUNTER 2019-02-18 10:00 | Emergency (ER) | payer MEDICAID ==
[~2019-02-18] VITALS: Ht 160 cm; Wt 126.1 kg
[~2019-02-18 10:00] MED LIST changes: +ABIL10TA9 PO; +BENZ-52 PO; +DEPA250T32 PO; +DIVA1CAP PO; +DIVA500T9 PO; +FOLI1TAB11 PO; +LOPE2CAP PO; +MACR100C43 PO; +PRAZ1CAP PO; +THIA100T7 PO; +VENTAER INH; +VITA50005 PO
[2019-02-18 11:03] LABS: HEMATOCRIT 38.9 % (36.0-47.0); HEMOGLOBIN 12.2 g/dl (12.0-15.5); MEAN CORPUSCULAR HGB CONC 31.4 g/dl (32.0-36.5); MEAN CORPUSCULAR VOLUME 92.6 fl (80.0-96.0); PLATELET COUNT, AUTOMATED 253 10^3/uL (150-450); WHITE BLOOD COUNT 8.3 10^3/uL (4.0-10.0)
[2019-02-18 11:23] LABS: HCG, SERUM QUALITATIVE NEGATIVE (NEGATIVE)
[2019-02-18 11:28] LABS: AMPHETAMINES LEVEL URINE NEGATIVE (NEGATIVE); BARBITURATES URINE NEGATIVE (NEGATIVE); BENZODIAZEPINES URINE NEGATIVE (NEGATIVE); CANNABINOIDS URINE NEGATIVE (NEGATIVE); COCAINE METABOLITE URINE NEGATIVE (NEGATIVE); METHADONE URINE NEGATIVE (NEGATIVE); OPIATES URINE NEGATIVE (NEGATIVE); PHENCYCLIDINE URINE NEGATIVE (NEGATIVE)
[2019-02-18] MEDS ORDERED: BUDE0.5S6 INH (11:33)
[2019-02-18] MEDS ORDERED: BENZ-52 PO (11:33)
[2019-02-18] MEDS ORDERED: DICY20TA PO (11:33)
[2019-02-18] MEDS ORDERED: VITA50005 PO (11:33)
[2019-02-18] MEDS ORDERED: PHEN-594 PO (11:33)
[2019-02-18] MEDS ORDERED: TAB-TAB PO (11:33)
[2019-02-18 11:37] LABS: ACETAMINOPHEN LEVEL < 2.0 UG/ML (10.0-30.0); ALBUMIN 3.2 GM/DL (3.2-5.2); ALT/SGPT 17 U/L (12-78); BILIRUBIN,DIRECT 0.2 MG/DL (0.0-0.2); BILIRUBIN,TOTAL 0.8 MG/DL (0.2-1.0); BLOOD UREA NITROGEN 12 MG/DL (7-18); CALCIUM LEVEL 8.5 MG/DL (8.5-10.1); CARBON DIOXIDE LEVEL 31 MEQ/L (21-32); CHLORIDE LEVEL 104 MEQ/L (98-107); ETHYL ALCOHOL (ETHANOL) < 0.003 % (0.000-0.010); GLOMERULAR FILTRATION RATE > 60.0 (>58); GLUCOSE, FASTING 90 MG/DL (70-100); POTASSIUM SERUM 4.1 MEQ/L (3.5-5.1); SALICYLATE LEVEL < 1.7 MG/DL (5.0-30.0); SODIUM LEVEL 141 MEQ/L (136-145); TOTAL PROTEIN 6.1 GM/DL (6.4-8.2); VALPROIC ACID (DEPAKOTE) 66.2 UG/ML (50.0-100.0)
[2019-02-18 13:28] VITALS: BP 121/83
[2019-02-19] MEDS ORDERED: PHEN-500 PO (23:19)
[2019-02-19] MEDS ORDERED: IBUP1TAB6 PO (23:19)
== END 2019-02-18 13:30 | disposition home or self-care (01) ==
LOC: M ED 10:00
DX: F31.9 Bipolar disorder, unspecified (principal); E11.9 Type 2 diabetes mellitus without complications; J44.9 Chronic obstructive pulmonary disease, unspecified; K58.9 Irritable bowel syndrome, unspecified; J45.909 Unspecified asthma, uncomplicated; E78.9 Disorder of lipoprotein metabolism, unspecified; E07.9 Disorder of thyroid, unspecified; Z79.899 Other long term (current) drug therapy; Z79.84 Long term (current) use of oral hypoglycemic drugs
CPT/HCPCS: 36415; 80048; 80076; 80164; 80307; 84443; 84703; 85027; 99284; G0480

== ENCOUNTER 2019-02-19 21:04 | Inpatient (IN) | payer MEDICAID ==
[~2019-02-19] VITALS: Ht 160 cm; Wt 124.7 kg
[2019-02-19] MEDS: DIVALPROEX 500MG *ER* TAB PO SCH (21:00)
[2019-02-19] MEDS: PRAZOSIN 1 MG CAP PO SCH (21:00)
[2019-02-19] MEDS: BENZTROPINE 1 MG TAB PO SCH (21:00)
[2019-02-19] MEDS: MONTELUKAST 10 MG TAB PO SCH (21:00)
[2019-02-19] MEDS: oxyBUTYnin *DITROPAN XL* 5 MG TABCR PO SCH (21:00)
[~2019-02-19 21:04] MED LIST changes: +PHEN-594 PO
[2019-02-19 21:50] LABS: HEMATOCRIT 38.7 % (36.0-47.0); HEMOGLOBIN 12.1 g/dl (12.0-15.5); MEAN CORPUSCULAR HEMOGLOBIN 29.2 pg (27.0-33.0); MEAN CORPUSCULAR HGB CONC 31.3 g/dl (32.0-36.5); MEAN CORPUSCULAR VOLUME 93.3 fl (80.0-96.0); PLATELET COUNT, AUTOMATED 247 10^3/uL (150-450); RED BLOOD COUNT 4.15 10^6/uL (4.00-5.40); WHITE BLOOD COUNT 9.4 10^3/uL (4.0-10.0)
[2019-02-19 22:11] LABS: AMPHETAMINES LEVEL URINE NEGATIVE (NEGATIVE); BARBITURATES URINE NEGATIVE (NEGATIVE); BENZODIAZEPINES URINE NEGATIVE (NEGATIVE); CANNABINOIDS URINE NEGATIVE (NEGATIVE); COCAINE METABOLITE URINE NEGATIVE (NEGATIVE); METHADONE URINE NEGATIVE (NEGATIVE); OPIATES URINE NEGATIVE (NEGATIVE); PHENCYCLIDINE URINE NEGATIVE (NEGATIVE)
[2019-02-19 22:23] LABS: ACETAMINOPHEN LEVEL < 2.0 UG/ML (10.0-30.0); ALBUMIN 3.5 GM/DL (3.2-5.2); ALT/SGPT 18 U/L (12-78); BILIRUBIN,DIRECT 0.1 MG/DL (0.0-0.2); BILIRUBIN,TOTAL 0.7 MG/DL (0.2-1.0); BLOOD UREA NITROGEN 12 MG/DL (7-18); CALCIUM LEVEL 8.4 MG/DL (8.5-10.1); CARBON DIOXIDE LEVEL 31 MEQ/L (21-32); CHLORIDE LEVEL 103 MEQ/L (98-107); CREATININE FOR GFR 0.95 MG/DL (0.55-1.30); ETHYL ALCOHOL (ETHANOL) < 0.003 % (0.000-0.010); GLOMERULAR FILTRATION RATE > 60.0 (>58); GLUCOSE, FASTING 100 MG/DL (70-100); SALICYLATE LEVEL < 1.7 MG/DL (5.0-30.0); SODIUM LEVEL 142 MEQ/L (136-145); TOTAL PROTEIN 6.3 GM/DL (6.4-8.2)
[2019-02-19] MEDS ORDERED: PHEN-500 PO (23:19)
[2019-02-19] MEDS ORDERED: IBUP1TAB6 PO (23:19)
[2019-02-19] MEDS ORDERED: ALBUTEROL SULFATE 2.5 MG/0.5 ML INH NEB SOLN INH PRN (23:30)
[2019-02-19] MEDS ORDERED: ALBUTEROL 90 MCG/ACT 8GM HFA INHALER INH PRN (23:30)
[2019-02-19] MEDS ORDERED: BUDESONIDE 0.5 MG/2 ML INHALATION SUSPENSION INH PRN (23:30)
[2019-02-19] MEDS ORDERED: DICYCLOMINE 10 MG CAP PO PRN (23:30)
[2019-02-19] MEDS ORDERED: hydrOXYzine 50 MG TAB PO PRN (23:30)
[2019-02-19] MEDS ORDERED: IBUPROFEN 600 MG TAB PO PRN (23:30)
[2019-02-20] MEDS ORDERED: traZODone 50 MG TAB PO PRN
[2019-02-20] MEDS ORDERED: MOM 30ML SUSPENSION UDC PO PRN
[2019-02-20] MEDS: NYSTATIN 100,000 UNITS/GM TOPICAL PWD 15 GM TOP PRN ×2 (03:37→15:41)
[2019-02-20 04:32] VITALS: BP 128/75
[2019-02-20] MEDS ORDERED: LEVOTHYROXINE 25MCG TABLET (0.025MG) PO SCH (09:00)
[2019-02-20] MEDS ORDERED: ARIPiprazole 10 MG TAB PO SCH (09:00)
[2019-02-20] MEDS: BENZTROPINE 1 MG TAB PO SCH ×2 (09:17→20:27)
[2019-02-20] MEDS: PHENAZOPYRIDINE 100 MG TAB PO SCH ×3 (09:17→20:28)
[2019-02-20] MEDS: ATORVASTATIN 20 MG TAB PO SCH (09:17)
[2019-02-20] MEDS: PANTOPRAZOLE 40MG TAB (PROTONIX) PO SCH (09:17)
[2019-02-20] MEDS: metFORMIN (GLUCOPHAGE) 500 MG TAB PO SCH ×2 (09:17→17:29)
[2019-02-20] MEDS: NITROFURANTOIN (MACROBID) 100 MG CAP PO SCH ×2 (09:17→20:38)
[2019-02-20] MEDS: FOLIC ACID 1 MG TAB PO SCH (09:17)
[2019-02-20] MEDS: THIAMINE 100 MG TAB PO SCH (09:17)
[2019-02-20] MEDS: FLUoxetine 20 MG CAP PO SCH (09:18)
[2019-02-20] MEDS: MULTIVITAMINS/MINERALS THERAP 1 TAB PO SCH (09:18)
[2019-02-20] MEDS: oxyBUTYnin *DITROPAN XL* 5 MG TABCR PO SCH ×3 (10:10→20:27)
--- NOTE | 2019-02-20 14:45 | ECGEPIP ---
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
[2019-02-20 18:23] VITALS: BP 106/66
[2019-02-20] MEDS: DIVALPROEX 500MG *ER* TAB PO SCH (20:27)
[2019-02-20] MEDS: PRAZOSIN 1 MG CAP PO SCH (20:27)
[2019-02-20] MEDS: MONTELUKAST 10 MG TAB PO SCH (20:38)
[2019-02-20] MEDS: NYSTATIN 500,000 U/5 ML SUSP UDC SS SCH (21:00)
[2019-02-21] MEDS: NYSTATIN 500,000 U/5 ML SUSP UDC SS SCH ×4 (06:22→20:54)
[2019-02-21 07:01] VITALS: BP 126/67
[2019-02-21] MEDS: metFORMIN (GLUCOPHAGE) 500 MG TAB PO SCH ×2 (08:45→17:46)
[2019-02-21] MEDS: NITROFURANTOIN (MACROBID) 100 MG CAP PO SCH ×2 (08:45→20:53)
[2019-02-21] MEDS: PHENAZOPYRIDINE 100 MG TAB PO SCH ×3 (08:47→20:53)
[2019-02-21] MEDS: oxyBUTYnin *DITROPAN XL* 5 MG TABCR PO SCH ×3 (08:47→20:53)
[2019-02-21] MEDS: BENZTROPINE 1 MG TAB PO SCH ×2 (08:48→20:53)
[2019-02-21] MEDS: PANTOPRAZOLE 40MG TAB (PROTONIX) PO SCH (08:48)
[2019-02-21] MEDS: ATORVASTATIN 20 MG TAB PO SCH (08:49)
[2019-02-21] MEDS: MULTIVITAMINS/MINERALS THERAP 1 TAB PO SCH (08:49)
[2019-02-21] MEDS: FOLIC ACID 1 MG TAB PO SCH (08:49)
[2019-02-21] MEDS: FLUoxetine 20 MG CAP PO SCH (08:49)
[2019-02-21] MEDS: THIAMINE 100 MG TAB PO SCH (08:49)
[2019-02-21] MEDS: LEVOTHYROXINE 25MCG TABLET (0.025MG) PO SCH (08:50)
[2019-02-21] MEDS: NYSTATIN 100,000 UNITS/GM TOPICAL PWD 15 GM TOP PRN ×2 (12:42→22:52)
[2019-02-21 18:38] VITALS: BP 122/66
[2019-02-21] MEDS: MONTELUKAST 10 MG TAB PO SCH (20:53)
[2019-02-21] MEDS: PRAZOSIN 1 MG CAP PO SCH (20:54)
[2019-02-21] MEDS: DIVALPROEX 500MG *ER* TAB PO SCH (20:54)
[2019-02-22] MEDS: MAALOX 30 ML SUSP *UDC PO PRN (06:04)
[2019-02-22] MEDS: LEVOTHYROXINE 25MCG TABLET (0.025MG) PO SCH (06:04)
[2019-02-22 06:38] VITALS: BP 125/50
[2019-02-22] MEDS: FLUoxetine 20 MG CAP PO SCH (08:08)
[2019-02-22] MEDS: NITROFURANTOIN (MACROBID) 100 MG CAP PO SCH ×2 (08:08→22:21)
[2019-02-22] MEDS: oxyBUTYnin *DITROPAN XL* 5 MG TABCR PO SCH ×3 (08:08→22:21)
[2019-02-22] MEDS: metFORMIN (GLUCOPHAGE) 500 MG TAB PO SCH ×2 (08:08→17:13)
[2019-02-22] MEDS: PHENAZOPYRIDINE 100 MG TAB PO SCH ×3 (08:08→22:21)
[2019-02-22] MEDS: PANTOPRAZOLE 40MG TAB (PROTONIX) PO SCH (08:08)
[2019-02-22] MEDS: NYSTATIN 500,000 U/5 ML SUSP UDC SS SCH ×4 (08:08→22:24)
[2019-02-22] MEDS: BENZTROPINE 1 MG TAB PO SCH ×2 (08:08→22:21)
[2019-02-22] MEDS: MULTIVITAMINS/MINERALS THERAP 1 TAB PO SCH (08:09)
[2019-02-22] MEDS: ATORVASTATIN 20 MG TAB PO SCH (08:09)
[2019-02-22] MEDS: THIAMINE 100 MG TAB PO SCH (08:09)
[2019-02-22] MEDS: FOLIC ACID 1 MG TAB PO SCH (08:09)
[2019-02-22] MEDS: NYSTATIN 100,000 UNITS/GM TOPICAL PWD 15 GM TOP PRN (09:22)
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
[2019-02-22] MEDS ORDERED: ARIPiprazole MONOHYDRATE 400 MG INJ (ABILIFY)(J0401) IM ONE (15:00)
[2019-02-22] MEDS ORDERED: ARIPIPRAZOLE LAUROXIL IM ONE (16:00)
--- NOTE | 2019-02-22 17:33 | MHIPNPDOC ---
[facility] Progress Note Progress Note DATE OF SERVICE: 02/22/19 HISTORY: As per Dr. Wills: " This is one of multiple hospitalizations for this 43-year-old woman who is a resident of [facility]. She presented to the hospital stating that she was suicidal and that she had thoughts of wanting to athletic instructor front of the road and just let a car hit her and also she had homicidal ideations towards one of the males at [facility] that she feels yells at her. The patient admits that this is because "I stopped my medicine". She states "I did not think I would need it". She says that she has been more depressed because on [birth year]/26[birth year]2019 it would have been her mother's birthday. The patient states that every year around this time she gets depressed. The patient is supposed to be on Abilify 5 mg twice a day, Depakote 1000 mg at bedtime, Prozac 20 mg daily, prazosin 1 mg at bedtime, Cogentin 1 mg twice a day, and hydroxyzine 50 mg every 6 hours as needed for anxiety. VITAL SIGNS: See below. NEW TEST RESULTS: See below CURRENT MEDICATIONS: See below. MENTAL STATUS EXAMINATION: Patient is a 43-year old female, who is alert, dressed in hospital clothes, mildly cooperative, disheveled Speech: Is rapid, a little bit pressured. Language skills are fair Thought processes including: illogical, circumstantial Thought content: angry thoughts about a [facility] Resident that "gets on my nerves, I can't deal with him or with my daughter". Abstract reasoning, and computation: impaired. Description of associations: loose. Description of abnormal or psychotic thoughts: angry, depressive, anxious t houghts. Ideas of reference/paranoid thoughts regarding [facility] residents Judgment: poor. Insight: poor. Orientation: x 2 (She doesn't know what date is today). Recent and remote memory: limited. Attention span and concentration: limited. Language: Vietnamese. Fund of knowledge: under average. Mood: irritable/anxious. Affect: labile. DIAGNOSES: 1. Bipolar 2 disorder, mixed episode. 2. Cluster B personality disorder 3. Mild Intellectual disability ASSESSMENT: The patient doesn't take well constructive criticism, she becomes angry when I tell her that she could apply the coping skills that she has been learning when she goes to groups. She has ineffective coping mechanisms, she is very labile and becomes easily irritated. She has been on Abilify previously, she spoke with Dr. Wills over the weekend about receiving the LEWIS, so that she won't forget to take her medications. the fact is that she has not forgotten to take her medications, she has stopped taking them because she is in denial of her illness and as soon as she feels some improvement, she stops taking them. She tells me that she has been on the LEWIS before. she agrees to have the injection for Abilify Mantenna 400 mgs IM topam and understands she will have to have every month. Understands she will still have to take Abilify for two weeks after this injection. MANAGEMENT PLAN: Abilify Mantenna 400 mgs IM today, continue with the other medications TIME SPENT: 20 minutes. Vital Signs Vital Signs Date Time Temp Pulse Resp B/P (MAP) Pulse Ox O2 Delivery O2 Flow Rate FiO2 02/22/19 06:38 97.9 100 18 125/50 (75) 02/19/19 21:35 92 Laboratory Data 24H Labs Laboratory Tests 2 02/21/19 17:33: Bedside Glucose (Misc Panel) 113H 02/22/19 06:59: Bedside Glucose (Misc Panel) 95 02/22/19 16:44: Bedside Glucose (Misc Panel) 95 Current Medications Current Medications Al Hydrox/Mg Hydrox/Simethicone (Mylanta) 30 ml Q4HP PRN PO HEARTBURN/INDIGESTION Last administered on 02/22/19at 06:04; Start 02/20/19 at 00:00 Albuterol Sulfate (Proventil Neb) 2.5 mg Q4H PRN INH SHORTNESS OF BREATH; Start 02/19/19 at 23:30 Albuterol Sulfate (Proventil, Ventolin Hfa) 2 puff Q4H PRN INH SHORTNESS OF BREATH; Start 02/19/19 at 23:30 Aripiprazole (AbiLIFY) 5 mg BID PO Last administered on 02/20/19at 09:18; Start 02/20/19 at 09:00; Stop 02/20/19 at 12:56; Status DC Aripiprazole (AbiLIFY) 5 mg BID PO Last administered on 02/22/19at 08:08; Start 02/20/19 at 21:00 Atorvastatin Calcium (Lipitor) 20 mg DAILY PO Last administered on 02/22/19 08:09; Start 02/20/19 at 09:00 Benztropine Mesylate (Cogentin) 1 mg BID PO Last administered on 02/22/19 08:08; Start 02/19/19 at 21:00 Budesonide (Pulmicort) 0.5 mg RBID PRN INH SHORTNESS OF BREATH; Start 02/19/19 at 23:30 Dicyclomine HCl (Bentyl) 20 mg BIDP PRN PO DIARRHEA Last administered on 02/22/19 14:58; Start 02/19/19 at 23:30 Divalproex Sodium (Depakote Er) 1,000 mg QHS PO Last administered on 02/21/19 20:54; Start 02/19/19 at 21:00 Fluoxetine HCl (PROzac) 40 mg DAILY PO Last administered on 02/22/19 08:08; Start 02/20/19 at 09:00 Folic Acid (Folic Acid) 1 mg DAILY PO Last administered on 02/22/19 08:09; Start 02/20/19 at 09:00 Home Med (Med Rec Complete!) ASDIRECTED XX ; Start 02/19/19 at 23:30; Stop 02/19/19 at 23:30; Status DC Hydroxyzine HCl (Atarax) 50 mg Q6HP PRN PO ANXIETY Last administered on 02/20/19at 15:40; Start 02/19/19 at 23:30 Ibuprofen (Advil) 600 mg BIDP PRN PO PAIN SCALE 6-10; Start 02/19/19 at 23:30 Levothyroxine Sodium (Synthroid) 25 mcg DAILY PO Last administered on 02/20/19at 10:11; Start 02/20/19 at 09:00; Stop 02/21/19 at 08:46; Status DC Levothyroxine Sodium (Synthroid) 25 mcg DAILY@0600 PO Last administered on 02/22/19at 06:04; Start 02/21/19 at 06:00 Magnesium Hydroxide (Milk Of Magnesia) 30 ml DAILYPRN PRN PO CONSTIPATION; Start 02/20/19 at 00:00 Metformin HCl (Glucophage) 500 mg BIDWM PO Last administered on 02/22/19 08:08; Start 02/20/19 at 08:00 Montelukast Sodium (Singulair) 10 mg QHS PO Last administered on 02/21/19 20:53; Start 02/19/19 at 21:00 Multivitamins (Theragram-M) 1 tab DAILY PO Last administered on 02/22/19 08:09; Start 02/20/19 at 09:00 Nitrofurantoin Monoh/Nitrofur Macro (Macrobid) 100 mg BID PO Last administered on 02/22/19 08:08; Start 02/20/19 at 09:00; Stop 02/24/19 at 22:00 Nystatin (Mycostatin Powder, Nystop) APPLY TO LOWER ABDOME... BID PRN TOP REDNESS/IRRITATION Last administered on 02/22/19 09:22; Start 02/19/19 at 23:30 Nystatin (Mycostatin) 5 ml QID SS Last administered on 02/22/19 12:19; Start 02/20/19 at 21:00 Oxybutynin Chloride (Ditropan Xl) 5 mg TID PO Last administered on 02/22/19 15:44; Start 02/19/19 at 21:00 Pantoprazole Sodium (Protonix) 40 mg DAILY PO Last administered on 02/22/19 08:08; Start 02/20/19 at 09:00 Phenazopyridine HCl (Pyridium) 100 mg TID PO Last administered on 02/22/19 15:44; Start 02/20/19 at 09:00; Stop 02/22/19 at 22:00 Prazosin HCl (Minipress) 1 mg QHS PO Last administered on 02/20/19 20:27; Start 02/19/19 at 21:00; Stop 02/21/19 at 13:04; Status DC Prazosin HCl (Minipress) 2 mg QHS PO Last administered on 02/21/19 20:54; Start 02/21/19 at 21:00 Thiamine HCl (Thiamine HCl) 100 mg DAILY PO Last administered on 02/22/19 08:09; Start 02/20/19 at 09:00 Trazodone HCl (Desyrel) 50 mg QHSP PRN PO INSOMNIA; Start 02/20/19 at 00:00 Allergies Coded Allergies: Penicillins (Verified Allergy, Mild, RASH, 02/19/19) RASH hydrocodone (Verified Allergy, Mild, 02/19/19) RASH latex (Verified Allergy, Mild, RASH, 02/19/19) RASH acetaminophen (Verified Adverse Reaction, Intermediate, LIVER FXN, 02/19/19) AVOIDS PER LIVER FXN A-FIB/CHADSVASC A-FIB History Current/History of A-Fib/PAF?: No Current Oral Anticoagulant The: No Age/Risk Factor Scoring CHADSVASC: CHADSVASC Response (Comments) Value Age Risk Factor Age < 65 years old 0 Gender Risk Factor Female 1 Hx of CHF No 0 Hx of HTN No 0 Hx of Stroke/TIA/or VTE No 0 Hx of Diabetes Yes 1 Hx of Vascular Disease No 0 Total 2 Treatment Treatment ordered: NONE Reason Anticoagulant not given: Not indicated/[id number] JONE BHATTI MD Feb 22, 2019 17:33
[2019-02-22 18:00] VITALS: BP 105/56
--- NOTE | 2019-02-22 18:52 | HPE ---
DATE OF ADMISSION: 02/19/2019 Please refer to the psychiatric history and evaluation for further details on this admission. This examination and history is intended for medical issues which may need treatment, followup, or consult on this 43-year-old female. PRIMARY CARE PHYSICIAN: Dr. Beyer at [facility]. ALLERGIES: ACETAMINOPHEN, HYDROCODONE, PENICILLIN. SOCIAL HISTORY: She is single. She lives at [facility] in [place]. She does not drink alcohol. She does not smoke cigarettes. She does not use recreational drugs. FAMILY HISTORY: Mother is , chronic obstructive pulmonary disease. Father is , unknown cause. PAST MEDICAL HISTORY: Schizophrenia, bipolar disorder, psychosis, anxiety, depression, history of suicidal ideation, history of urinary tract infections and is currently being treated for one now diagnosed at the [facility] a few days ago and we are continuing her nitrofurantoin, asthma, hypothyroidism, dyslipidemia, gastroesophageal reflux disease, obesity, non-insulin dependent diabetes type 2. PAST SURGICAL HISTORY: Cholecystectomy, hernia repair times two, right knee surgery times four, section times two, hysterectomy. EKG showed sinus rhythm at 72, no significant change from 01/07/2019. HOME MEDICATIONS: - vitamin D 50,000 units once a week - benztropine mesylate 1 mg by mouth twice a day - budesonide inhalation twice a day as needed for shortness of breath or wheeze - dicyclomine 20 mg by mouth twice a day - hydroxyzine HCl 50 mg by mouth every 6 hours as needed for anxiety - ibuprofen 600 mg by mouth twice a day as needed for pain - Multi-Rodrigo one by mouth daily - oxybutynin 5 mg by mouth three times a day - albuterol one vial via nebulizer every 4 hours as needed for shortness of breath - albuterol Ventolin HFA two puffs every 4 hours as needed for shortness of breath - Abilify 5 mg by mouth twice a day - atorvastatin 20 mg by mouth daily - Depakote 1000 mg by mouth nightly - fluoxetine 40 mg by mouth daily - folic acid 1 mg by mouth daily - levothyroxine 25 mcg by mouth daily - metformin 500 mg by mouth twice a day with meals - montelukast sodium 10 mg by mouth nightly - nitrofurantoin/Macrobid 100 mg by mouth twice a day - nystatin powder twice a day as needed for redness and irritation in the abdominal folds - Protonix 40 mg by mouth daily - phenazopyridine HCl 100 mg by mouth three times a day - prazosin 1 mg by mouth nightly - thiamine 100 mg by mouth daily LABORATORY STUDIES: WBC 9.4, hemoglobin 12.1, hematocrit 38.7, platelets 247. Electrolytes were normal, BUN was 12, creatinine was 0.95. TSH was therapeutic at 1.270. Urine for toxicology was negative. EKG showed sinus rhythm, 72, no significant change from 01/07/2019. 11 systems review was done and was unremarkable other than the complaint of the redness in the abdominal folds which she states was getting better since putting on the nystatin powder. White spots and whiteness on her tongue, says she has had for a few days, states she has not been drinking a lot of water and has a urinary tract infection (UTI). No difficulty swallowing or chewing. No chest pain, shortness of breath. PHYSICAL EXAMINATION: 43-year-old obese female in no acute distress. Height 63 inches, weight 123.6 kg, body mass index (BMI) 48.3. Blood pressure 128/75, pulse 73, respirations 18, temperature 97.5. Patient is alert and oriented times three. Pupils equal and reactive to light. Extraocular movements are intact. Cornea and sclerae clear. Conjunctivae is normal. No facial asymmetry. Tympanic membranes (TM) pearly bilaterally. Pharynx pink. Tongue white spots, quite heavy and whitened, tongue is midline. Lower gums are pink. Neck is supple without lymphadenopathy. No thyromegaly. No goiter. Carotids 2+ without bruit. Chest clear to auscultation without wheeze or retraction. Heart is regular. Abdomen benign. Bowel sounds positive. Genitourinary/rectal not done. Extremities show equal strength, full range of motion. No cyanosis, clubbing, or edema. Peripheral pulses equal and palpable bilaterally. Skin is warm and dry. Cranial nerves III-XII grossly intact. IMPRESSION/PLAN: 1. Psychiatric plan per psychiatry. 2. Urinary tract infection (UTI). Continue nitrofurantoin 100 mg by mouth twice a day for 8 more days. 3. White spots, whitened tongue, dehydration, oral thrush. Nystatin swish and swallow 5 mL by mouth four times a day for 5 days. Increase water, drink at least 2-3 glasses per day. She advised agreement and understanding. 4. History of hypothyroidism. Thyroid stimulating hormone (TSH) is therapeutic. Continue Synthroid. 5. History of gastroesophageal reflux disease (GERD). Continue Protonix. 6. Dyslipidemia. Continue atorvastatin. 7. Non-insulin dependent diabetes type 2. Finger stick blood sugars twice a day. Consistent carbohydrate diet. Continue metformin. 8. Asthma. Continue Singulair. Ventolin and albuterol DuoNeb as needed. No other acute medical issues.
[2019-02-22] MEDS: MONTELUKAST 10 MG TAB PO SCH (22:21)
[2019-02-22] MEDS: DIVALPROEX 500MG *ER* TAB PO SCH (22:22)
[2019-02-22] MEDS: PRAZOSIN 1 MG CAP PO SCH (22:23)
[2019-02-22] MEDS: ONDANSETRON 4 MG ORAL DISINTEGRATING TAB (Q0162 PER 1MG) SL PRN (23:54)
[2019-02-23] MEDS: LEVOTHYROXINE 25MCG TABLET (0.025MG) PO SCH (06:06)
[2019-02-23 06:35] VITALS: BP 106/51
[2019-02-23] MEDS: ONDANSETRON 4 MG ORAL DISINTEGRATING TAB (Q0162 PER 1MG) SL PRN (07:58)
[2019-02-23] MEDS: metFORMIN (GLUCOPHAGE) 500 MG TAB PO SCH ×2 (08:57→17:15)
[2019-02-23] MEDS: VENLAFAXINE 37.5 MG TAB PO SCH (09:00)
[2019-02-23] MEDS: PANTOPRAZOLE 40MG TAB (PROTONIX) PO SCH (09:43)
[2019-02-23] MEDS: FLUoxetine 20 MG CAP PO SCH (09:43)
[2019-02-23] MEDS: ATORVASTATIN 20 MG TAB PO SCH (09:43)
[2019-02-23] MEDS: oxyBUTYnin *DITROPAN XL* 5 MG TABCR PO SCH ×3 (09:43→21:11)
[2019-02-23] MEDS: THIAMINE 100 MG TAB PO SCH (09:43)
[2019-02-23] MEDS: NYSTATIN 500,000 U/5 ML SUSP UDC SS SCH ×4 (09:43→21:12)
[2019-02-23] MEDS: MULTIVITAMINS/MINERALS THERAP 1 TAB PO SCH (09:44)
[2019-02-23] MEDS: FOLIC ACID 1 MG TAB PO SCH (09:44)
[2019-02-23] MEDS: BENZTROPINE 1 MG TAB PO SCH ×3 (09:44→21:11)
[2019-02-23] MEDS: NITROFURANTOIN (MACROBID) 100 MG CAP PO SCH ×2 (09:44→21:11)
--- NOTE | 2019-02-23 10:25 | MHIPN ---
DATE OF SERVICE: 02/21/2019 The patient today states that she is not doing good. She says that she already threatened a bunch of staff members today. She also says that she has been having nightmares despite the fact that she is on prazosin. MENTAL STATUS EXAM: The patient is awake, alert and oriented times three. Eye contact is fair. She did calm down as we were talking. She is verbally spontaneous. No formal thought disorder is noted. Mood is angry, affect is stable. She is not psychotic. She denies suicidal ideation. She is threatening earlier to a staff member. Concentration is fair, insight and judgment are poor. DIAGNOSES: 1. Bipolar disorder type 2. 2. Cluster B personality. 3. Intellectual disability. TREATMENT PLAN: At this point will continue to further evaluate and monitor the patient for continued elevation and stabilization of her mood. I decided to increase her prazosin to 2 mg nightly because she said that she also had had nightmares about her mom last night and this could have been what precipitated her anger this morning. We will continue to monitor the patient for continued resolution of suicidal and homicidal ideation. [place]
--- NOTE | 2019-02-23 14:00 | MHIPNPDOC ---
[facility] Progress Note Progress Note DATE OF SERVICE: 02/23/19 HISTORY: As per Dr. Wills: " This is one of multiple hospitalizations for this 43-year-old woman who is a resident of [facility]. She presented to the hospital stating that she was suicidal and that she had thoughts of wanting to drilling field operator front of the road and just let a car hit her and also she had homicidal ideations towards one of the males at [facility] that she feels yells at her. The patient admits that this is because "I stopped my medicine". She states "I did not think I would need it". She says that she has been more depressed because on [birth year]2019 it would have been her mother's birthday. The patient states that every year around this time she gets depressed. The patient is supposed to be on Abilify 5 mg twice a day, Depakote 1000 mg at bedtime, Prozac 20 mg daily, prazosin 1 mg at bedtime, Cogentin 1 mg twice a day, and hydroxyzine 50 mg every 6 hours as needed for anxiety. VITAL SIGNS: See below. NEW TEST RESULTS: See below CURRENT MEDICATIONS: See below. MENTAL STATUS EXAMINATION: Patient is a 43-year old female, who is alert, dressed in hospital clothes, mildly cooperative, disheveled Speech: Is rapid, a little bit pressured. Language skills are fair Thought processes including: she is still concrete and somehow illogical but she is less circumstantial, less tangential Thought content: she is having more rational thoughts about sitting down with [facility] staff and the man she has been having problems in there. The level of anger has decreased, when she talks about this. Abstract reasoning, and computation: Impaired. Description of associations: less loose today Description of abnormal or psychotic thoughts: less angry, less depressive but she still has anxious thoughts. Ideas of reference/paranoid thoughts (but less intense and less frequent) regarding [facility] residents Judgment: poor. Insight: poor. Orientation: x 3 Recent and remote memory: limited. Attention span and concentration: limited. Language: Tristanian. Fund of knowledge: under average. Mood: anxious. Affect: Less labile. DIAGNOSES: 1. Bipolar 2 disorder, mixed episode. 2. Cluster B personality disorder 3. Mild Intellectual disability ASSESSMENT: The patient is not attending groups and when this screenplay writer spoke with her about this matter she told me that she can't stand being at a place with a lot of people, this is what happens to her at [facility]. I will start her on Effexor and will taper down her Prozac, will order Gabapentin 300 mgs pO TID. MANAGEMENT PLAN: Start Gabapentin 300 mgs PO TID Decrease Prozac to 20 mgs Po daily start Effexor 37.5 mgs Po qam TIME SPENT: 20 minutes. Vital Signs Vital Signs Date Time Temp Pulse Resp B/P (MAP) Pulse Ox O2 Delivery O2 Flow Rate FiO2 02/23/19 06:35 98.4 97 20 106/51 (69) 02/19/19 21:35 92 Laboratory Data 24H Labs Laboratory Tests 2 02/22/19 16:44: Bedside Glucose (Misc Panel) 95 02/23/19 06:10: Bedside Glucose (Misc Panel) 95 Current Medications Current Medications Al Hydrox/Mg Hydrox/Simethicone (Mylanta) 30 ml Q4HP PRN PO HEARTBURN/INDIGESTION Last administered on 02/22/19at 06:04; Start 02/20/19 at 00:00 Albuterol Sulfate (Proventil Neb) 2.5 mg Q4H PRN INH SHORTNESS OF BREATH; Start 02/19/19 at 23:30 Albuterol Sulfate (Proventil, Ventolin Hfa) 2 puff Q4H PRN INH SHORTNESS OF BREATH; Start 02/19/19 at 23:30 Aripiprazole (AbiLIFY) 5 mg BID PO Last administered on 02/20/19at 09:18; Start 02/20/19 at 09:00; Stop 02/20/19 at 12:56; Status DC Aripiprazole (AbiLIFY) 5 mg BID PO Last administered on 02/23/19at 12:01; Start 02/20/19 at 21:00 Atorvastatin Calcium (Lipitor) 20 mg DAILY PO Last administered on 02/23/19at 09:43; Start 02/20/19 at 09:00 Benztropine Mesylate (Cogentin) 1 mg BID PO Last administered on 02/23/19at 09:44; Start 02/19/19 at 21:00 Budesonide (Pulmicort) 0.5 mg RBID PRN INH SHORTNESS OF BREATH; Start 02/19/19 at 23:30 Dicyclomine HCl (Bentyl) 20 mg BIDP PRN PO DIARRHEA Last administered on 02/22/19 14:58; Start 02/19/19 at 23:30 Divalproex Sodium (Depakote Er) 1,000 mg QHS PO Last administered on 02/22/19 22:22; Start 02/19/19 at 21:00 Fluoxetine HCl (PROzac) 40 mg DAILY PO Last administered on 02/23/19 09:43; Start 02/20/19 at 09:00 Folic Acid (Folic Acid) 1 mg DAILY PO Last administered on 02/23/19 09:44; Start 02/20/19 at 09:00 Home Med (Med Rec Complete!) ASDIRECTED XX ; Start 02/19/19 at 23:30; Stop 02/19/19 at 23:30; Status DC Hydroxyzine HCl (Atarax) 50 mg Q6HP PRN PO ANXIETY Last administered on 02/20/19 15:40; Start 02/19/19 at 23:30 Ibuprofen (Advil) 600 mg BIDP PRN PO PAIN SCALE 6-10; Start 02/19/19 at 23:30 Levothyroxine Sodium (Synthroid) 25 mcg DAILY PO Last administered on 02/20/19 10:11; Start 02/20/19 at 09:00; Stop 02/21/19 at 08:46; Status DC Levothyroxine Sodium (Synthroid) 25 mcg DAILY@0600 PO Last administered on 02/23/19 06:06; Start 02/21/19 at 06:00 Magnesium Hydroxide (Milk Of Magnesia) 30 ml DAILYPRN PRN PO CONSTIPATION; Start 02/20/19 at 00:00 Metformin HCl (Glucophage) 500 mg BIDWM PO Last administered on 02/23/19 08:57; Start 02/20/19 at 08:00 Montelukast Sodium (Singulair) 10 mg QHS PO Last administered on 02/22/19 22:21; Start 02/19/19 at 21:00 Multivitamins (Theragram-M) 1 tab DAILY PO Last administered on 02/23/19 09:44; Start 02/20/19 at 09:00 Nitrofurantoin Monoh/Nitrofur Macro (Macrobid) 100 mg BID PO Last administered on 02/23/19 09:44; Start 02/20/19 at 09:00; Stop 02/24/19 at 22:00 Nystatin (Mycostatin Powder, Nystop) APPLY TO LOWER ABDOME... BID PRN TOP REDNESS/IRRITATION Last administered on 02/22/19 09:22; Start 02/19/19 at 23:30 Nystatin (Mycostatin) 5 ml QID SS Last administered on 02/23/19 12:47; Start 02/20/19 at 21:00 Ondansetron HCl (Zofran Odt) 4 mg Q4HP PRN SL NAUSEA OR VOMITING Last administered on 02/23/19 07:58; Start 02/22/19 at 23:45 Oxybutynin Chloride (Ditropan Xl) 5 mg TID PO Last administered on 02/23/19 09:43; Start 02/19/19 at 21:00 Pantoprazole Sodium (Protonix) 40 mg DAILY PO Last administered on 02/23/19 09:43; Start 02/20/19 at 09:00 Phenazopyridine HCl (Pyridium) 100 mg TID PO Last administered on 02/22/19 22:21; Start 02/20/19 at 09:00; Stop 02/22/19 at 22:00; Status DC Prazosin HCl (Minipress) 1 mg QHS PO Last administered on 02/20/19 20:27; Start 02/19/19 at 21:00; Stop 02/21/19 at 13:04; Status DC Prazosin HCl (Minipress) 2 mg QHS PO Last administered on 02/22/19 22:23; Start 02/21/19 at 21:00 Thiamine HCl (Thiamine HCl) 100 mg DAILY PO Last administered on 02/23/19 09:43; Start 02/20/19 at 09:00 Trazodone HCl (Desyrel) 50 mg QHSP PRN PO INSOMNIA; Start 02/20/19 at 00:00 Allergies Coded Allergies: Penicillins (Verified Allergy, Mild, RASH, 02/19/19) RASH hydrocodone (Verified Allergy, Mild, 02/19/19) RASH latex (Verified Allergy, Mild, RASH, 02/19/19) RASH acetaminophen (Verified Adverse Reaction, Intermediate, LIVER FXN, 02/19/19) AVOIDS PER LIVER FXN A-FIB/CHADSVASC A-FIB History Current/History of A-Fib/PAF?: No Current Oral Anticoagulant The: No Age/Risk Factor Scoring CHADSVASC: CHADSVASC Response (Comments) Value Age Risk Factor Age < 65 years old 0 Gender Risk Factor Female 1 Hx of CHF No 0 Hx of HTN No 0 Hx of Stroke/TIA/or VTE No 0 Hx of Diabetes Yes 1 Hx of Vascular Disease No 0 Total 2 Treatment Treatment ordered: NONE Reason Anticoagulant not given: Not indicated/[id number] JONE BHATTI MD Feb 23, 2019 14:00
[2019-02-23 18:00] VITALS: BP 108/57
[2019-02-23] MEDS: MONTELUKAST 10 MG TAB PO SCH (21:11)
[2019-02-23] MEDS: DIVALPROEX 500MG *ER* TAB PO SCH (21:11)
[2019-02-23] MEDS: PRAZOSIN 1 MG CAP PO SCH (21:12)
[2019-02-24] MEDS: MAALOX 30 ML SUSP *UDC PO PRN ×2 (04:01→14:21)
[2019-02-24] MEDS: LEVOTHYROXINE 25MCG TABLET (0.025MG) PO SCH (06:11)
[2019-02-24 06:38] VITALS: BP 125/70
[2019-02-24] MEDS: metFORMIN (GLUCOPHAGE) 500 MG TAB PO SCH ×2 (07:25→17:09)
[2019-02-24] MEDS: ATORVASTATIN 20 MG TAB PO SCH (09:05)
[2019-02-24] MEDS: FOLIC ACID 1 MG TAB PO SCH (09:06)
[2019-02-24] MEDS: NITROFURANTOIN (MACROBID) 100 MG CAP PO SCH ×2 (09:06→21:56)
[2019-02-24] MEDS: FLUoxetine 20 MG CAP PO SCH (09:06)
[2019-02-24] MEDS: NYSTATIN 500,000 U/5 ML SUSP UDC SS SCH ×4 (09:06→21:57)
[2019-02-24] MEDS: VENLAFAXINE 37.5 MG TAB PO SCH (09:06)
[2019-02-24] MEDS: BENZTROPINE 1 MG TAB PO SCH ×3 (09:06→20:25)
[2019-02-24] MEDS: MULTIVITAMINS/MINERALS THERAP 1 TAB PO SCH (09:06)
[2019-02-24] MEDS: PANTOPRAZOLE 40MG TAB (PROTONIX) PO SCH (09:06)
[2019-02-24] MEDS: THIAMINE 100 MG TAB PO SCH (09:06)
[2019-02-24] MEDS: oxyBUTYnin *DITROPAN XL* 5 MG TABCR PO SCH ×3 (09:06→20:24)
[2019-02-24 18:00] VITALS: BP 107/58
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
[2019-02-24] MEDS: DIVALPROEX 500MG *ER* TAB PO SCH (20:24)
[2019-02-24] MEDS: MONTELUKAST 10 MG TAB PO SCH (20:24)
[2019-02-24 20:25] VITALS: BP 110/78
[2019-02-24] MEDS: PRAZOSIN 1 MG CAP PO SCH (20:25)
[2019-02-24] MEDS: NYSTATIN 100,000 UNITS/GM TOPICAL PWD 15 GM TOP PRN ×3 (20:25→21:49)
[2019-02-25] MEDS: MAALOX 30 ML SUSP *UDC PO PRN (02:42)
[2019-02-25] MEDS: LEVOTHYROXINE 25MCG TABLET (0.025MG) PO SCH (05:56)
[2019-02-25 07:20] VITALS: BP 122/70
[2019-02-25] MEDS: metFORMIN (GLUCOPHAGE) 500 MG TAB PO SCH (07:47)
[2019-02-25] MEDS: ATORVASTATIN 20 MG TAB PO SCH (07:48)
[2019-02-25] MEDS: PANTOPRAZOLE 40MG TAB (PROTONIX) PO SCH (07:48)
[2019-02-25] MEDS: MULTIVITAMINS/MINERALS THERAP 1 TAB PO SCH (07:48)
[2019-02-25] MEDS: FLUoxetine 20 MG CAP PO SCH (07:48)
[2019-02-25] MEDS: BENZTROPINE 1 MG TAB PO SCH (07:48)
[2019-02-25] MEDS: FOLIC ACID 1 MG TAB PO SCH (07:48)
[2019-02-25] MEDS: THIAMINE 100 MG TAB PO SCH (07:48)
[2019-02-25] MEDS: NYSTATIN 500,000 U/5 ML SUSP UDC SS SCH ×2 (07:49→11:59)
[2019-02-25] MEDS: oxyBUTYnin *DITROPAN XL* 5 MG TABCR PO SCH (07:49)
[2019-02-25] MEDS ORDERED: VENLAFAXINE 37.5 MG TAB PO SCH (09:00)
[2019-02-25] MEDS ORDERED: VENL37TA PO (10:03)
[2019-02-25] MEDS ORDERED: BENZ-52 PO (10:03)
[2019-02-25] MEDS ORDERED: DICY1CAP8 PO (10:03)
[2019-02-25] MEDS ORDERED: DEPA250T2 PO (10:03)
[2019-02-25] MEDS ORDERED: ABIL1TAB11 PO (10:03)
[2019-02-25] MEDS ORDERED: FLUO20CA19 PO (10:03)
[2019-03-07] MEDS ORDERED: ABIL1INJ2 IM (20:22)
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
== END 2019-02-25 13:15 | disposition home or self-care (01) | DRG 753 ==
LOC: M ED 21:04 → M ED INP 23:47 → M PSY 02-20 00:32
PROVIDERS: ADMIT Psychiatry & Neurology Psychiatry; ATTEND Psychiatry & Neurology Psychiatry
DX: F31.81 Bipolar II disorder (principal); B37.0 Candidal stomatitis; F70 Mild intellectual disabilities; E11.9 Type 2 diabetes mellitus without complications; Z68.42 Body mass index [BMI] 45.0-49.9, adult; N39.0 Urinary tract infection, site not specified; F60.89 Other specific personality disorders; J45.909 Unspecified asthma, uncomplicated; E78.00 Pure hypercholesterolemia, unspecified; E03.9 Hypothyroidism, unspecified; K58.9 Irritable bowel syndrome, unspecified; E66.9 Obesity, unspecified; Z79.84 Long term (current) use of oral hypoglycemic drugs; Z79.899 Other long term (current) drug therapy; Z91.14 Patient's other noncompliance with medication regimen; Z62.819 Personal history of unspecified abuse in childhood

== ENCOUNTER 2019-03-06 12:06 | Emergency (ER) | payer MEDICAID ==
[~2019-03-06 12:06] MED LIST changes: +ABIL1TAB11 PO; +DEPA250T2 PO; +DICY1CAP8 PO; +IBUP1TAB6 PO; +PHEN-500 PO; +VENL37TA PO
[2019-03-06] MEDS ORDERED: FLUO40CA PO (12:49)
[2019-03-06] MEDS ORDERED: PULM90IN INH (12:49)
[2019-03-06] MEDS ORDERED: LIPI20TA PO (12:49)
[2019-03-06 13:15] LABS: HEMATOCRIT 39.6 % (36.0-47.0); MEAN CORPUSCULAR HGB CONC 30.3 g/dl (32.0-36.5); MEAN CORPUSCULAR VOLUME 95.7 fl (80.0-96.0); PLATELET COUNT, AUTOMATED 227 10^3/uL (150-450); RED BLOOD COUNT 4.14 10^6/uL (4.00-5.40); WHITE BLOOD COUNT 5.7 10^3/uL (4.0-10.0)
[2019-03-06 13:29] LABS: AMPHETAMINES LEVEL URINE NEGATIVE (NEGATIVE); BARBITURATES URINE NEGATIVE (NEGATIVE); BENZODIAZEPINES URINE NEGATIVE (NEGATIVE); CANNABINOIDS URINE NEGATIVE (NEGATIVE); COCAINE METABOLITE URINE NEGATIVE (NEGATIVE); METHADONE URINE NEGATIVE (NEGATIVE); OPIATES URINE NEGATIVE (NEGATIVE); PHENCYCLIDINE URINE NEGATIVE (NEGATIVE)
[2019-03-06 13:44] LABS: ACETAMINOPHEN LEVEL < 2.0 UG/ML (10.0-30.0); ALBUMIN 3.2 GM/DL (3.2-5.2); ALT/SGPT 20 U/L (12-78); BILIRUBIN,DIRECT 0.1 MG/DL (0.0-0.2); BILIRUBIN,TOTAL 0.4 MG/DL (0.2-1.0); BLOOD UREA NITROGEN 8 MG/DL (7-18); CALCIUM LEVEL 8.6 MG/DL (8.5-10.1); CARBON DIOXIDE LEVEL 33 MEQ/L (21-32); CHLORIDE LEVEL 106 MEQ/L (98-107); CREATININE FOR GFR 0.69 MG/DL (0.55-1.30); GLOMERULAR FILTRATION RATE > 60.0 (>58); GLUCOSE, FASTING 93 MG/DL (70-100); POTASSIUM SERUM 4.4 MEQ/L (3.5-5.1); SALICYLATE LEVEL < 1.7 MG/DL (5.0-30.0); SODIUM LEVEL 142 MEQ/L (136-145); THYROID STIMULATING HORMONE 0.797 uIU/ML (0.358-3.740); TOTAL PROTEIN 6.5 GM/DL (6.4-8.2); VALPROIC ACID (DEPAKOTE) 54.1 UG/ML (50.0-100.0)
[2019-03-06 13:45] LABS: ETHYL ALCOHOL (ETHANOL) < 0.003 % (0.000-0.010)
--- NOTE | 2019-03-06 17:21 | ECGEPIP ---
Stationary ECG Study [facility] - ED Test Date: 2019-03-06 Pat Name: MARY KAY ENRIQUEZ Department: Room: - Gender: F Apprentice Funeral Director: marline : 1975 Requested By: Ciro Trotter Order Number: [id number] Reading MD: Ciro Souza Measurements Intervals [place] Rate: 68 P: 41 NC: 136 QRS: -10 QRSD: 107 T: 33 QT: 412 QTc: 439 Interpretive Statements SINUS RHYTHM NONSPECIFIC T-WAVE ABNORMALITY SIMILAR TO 02/20/19 Electronically Signed On 03-06-2019 17:20:58 EDT by Ciro Souza
[2019-03-06 17:45] VITALS: BP 101/68
[2019-03-07] MEDS ORDERED: ABIL1INJ2 IM (20:22)
== END 2019-03-06 17:49 ==
LOC: M ED 12:06
DX: R45.851 Suicidal ideations (principal); R45.850 Homicidal ideations; F31.9 Bipolar disorder, unspecified; R30.0 Dysuria; K21.9 Gastro-esophageal reflux disease without esophagitis; E78.5 Hyperlipidemia, unspecified; E03.9 Hypothyroidism, unspecified; E11.9 Type 2 diabetes mellitus without complications; Z79.899 Other long term (current) drug therapy; Z79.84 Long term (current) use of oral hypoglycemic drugs; Z79.51 Long term (current) use of inhaled steroids
CPT/HCPCS: 36415; 80048; 80076; 80164; 80307; 84443; 85027; 93005; 99285; G0480

== ENCOUNTER 2019-03-13 16:51 | Emergency (ER) | payer MEDICAID ==
[~2019-03-13] VITALS: Ht 160 cm; Wt 122.7 kg
[~2019-03-13 16:51] MED LIST changes: +ABIL1INJ2 IM; +BUDE0.5S6 NEB; +LIPI20TA PO; +PULM90IN INH
[2019-03-13 17:24] LABS: HEMATOCRIT 37.3 % (36.0-47.0); HEMOGLOBIN 11.8 g/dl (12.0-15.5); MEAN CORPUSCULAR HEMOGLOBIN 30.3 pg (27.0-33.0); MEAN CORPUSCULAR HGB CONC 31.6 g/dl (32.0-36.5); MEAN CORPUSCULAR VOLUME 95.9 fl (80.0-96.0); PLATELET COUNT, AUTOMATED 237 10^3/uL (150-450); RED BLOOD COUNT 3.89 10^6/uL (4.00-5.40); WHITE BLOOD COUNT 5.7 10^3/uL (4.0-10.0)
[2019-03-13 17:45] LABS: AMPHETAMINES LEVEL URINE NEGATIVE (NEGATIVE); BARBITURATES URINE NEGATIVE (NEGATIVE); BENZODIAZEPINES URINE NEGATIVE (NEGATIVE); CANNABINOIDS URINE NEGATIVE (NEGATIVE); COCAINE METABOLITE URINE NEGATIVE (NEGATIVE); METHADONE URINE NEGATIVE (NEGATIVE); OPIATES URINE NEGATIVE (NEGATIVE); PHENCYCLIDINE URINE NEGATIVE (NEGATIVE)
[2019-03-13 18:06] LABS: ACETAMINOPHEN LEVEL < 2.0 UG/ML (10.0-30.0); ALBUMIN 3.3 GM/DL (3.2-5.2); ALT/SGPT 21 U/L (12-78); BILIRUBIN,DIRECT < 0.1 MG/DL (0.0-0.2); BILIRUBIN,TOTAL 0.3 MG/DL (0.2-1.0); BLOOD UREA NITROGEN 9 MG/DL (7-18); CALCIUM LEVEL 8.5 MG/DL (8.5-10.1); CARBON DIOXIDE LEVEL 30 MEQ/L (21-32); CHLORIDE LEVEL 106 MEQ/L (98-107); CREATININE FOR GFR 0.82 MG/DL (0.55-1.30); ETHYL ALCOHOL (ETHANOL) < 0.003 % (0.000-0.010); GLOMERULAR FILTRATION RATE > 60.0 (>58); GLUCOSE, FASTING 86 MG/DL (70-100); POTASSIUM SERUM 4.3 MEQ/L (3.5-5.1); SALICYLATE LEVEL < 1.7 MG/DL (5.0-30.0); SODIUM LEVEL 141 MEQ/L (136-145); TOTAL PROTEIN 6.2 GM/DL (6.4-8.2); VALPROIC ACID (DEPAKOTE) 56.5 UG/ML (50.0-100.0)
[2019-03-13] MEDS ORDERED: CLAR10CA3 PO (18:13)
[2019-03-13] MEDS ORDERED: NYSTOI TOP (18:13)
[2019-03-13 23:50] VITALS: BP 122/75
--- NOTE | 2019-03-14 21:25 | ECGEPIP ---
Stationary ECG Study [facility] - ED Test Date: 2019-03-13 Pat Name: MARY KAY ENRIQUEZ Department: Room: - Gender: F Real Estate Developer: palak : 1975 Requested By: ALEXANDRA Moura Order Number: [id number] Reading MD: Catalina Gibson Measurements Intervals [place] Rate: 71 P: 47 NV: 127 QRS: -5 QRSD: 113 T: 43 QT: 411 QTc: 449 Interpretive Statements SINUS RHYTHM MODERATE INTRAVENTRICULAR CONDUCTION DELAY NONSPECIFIC T-WAVE ABNORMALITY SIMILAR 03/06/19 Electronically Signed On 03-14-2019 21:24:44 EDT by Catalina Gibson
== END 2019-03-13 23:58 ==
LOC: M ED 16:51
DX: R45.851 Suicidal ideations (principal); F32.9 Major depressive disorder, single episode, unspecified; E11.9 Type 2 diabetes mellitus without complications; E07.9 Disorder of thyroid, unspecified; J45.909 Unspecified asthma, uncomplicated; J44.9 Chronic obstructive pulmonary disease, unspecified; K58.9 Irritable bowel syndrome, unspecified; Z79.899 Other long term (current) drug therapy; Z79.84 Long term (current) use of oral hypoglycemic drugs; Z88.0 Allergy status to penicillin; Z88.5 Allergy status to narcotic agent; Z88.6 Allergy status to analgesic agent; Z91.040 Latex allergy status
CPT/HCPCS: 36415; 80048; 80076; 80164; 80307; 84443; 85027; 93005; 99284; G0480

== ENCOUNTER 2019-03-17 13:53 | Emergency (ER) | payer MEDICAID ==
[~2019-03-17] VITALS: Ht 160 cm; Wt 124.1 kg
[~2019-03-17 13:53] MED LIST changes: +CLAR10CA3 PO; +NYSTOI TOP
[2019-03-17 17:30] VITALS: BP 108/66
== END 2019-03-17 17:38 | disposition home or self-care (01) ==
LOC: M ED 13:53
DX: F43.20 Adjustment disorder, unspecified (principal); J45.909 Unspecified asthma, uncomplicated; F33.9 Major depressive disorder, recurrent, unspecified; F20.9 Schizophrenia, unspecified; F31.9 Bipolar disorder, unspecified; E07.9 Disorder of thyroid, unspecified; E78.9 Disorder of lipoprotein metabolism, unspecified; Z79.899 Other long term (current) drug therapy; Z79.890 Hormone replacement therapy; Z79.84 Long term (current) use of oral hypoglycemic drugs; Z88.0 Allergy status to penicillin; Z88.5 Allergy status to narcotic agent; Z88.8 Allergy status to other drugs, medicaments and biological substances; Z91.040 Latex allergy status

== ENCOUNTER 2019-03-19 22:06 | Emergency (ER) | payer MEDICAID ==
[~2019-03-19 22:06] MED LIST changes: +TRAZ1TAB10 PO; -TRAZO50TA PO
[2019-03-19 22:41] LABS: BASO # 0.1 10^3/uL (0.0-0.2); BASO % 0.5 % (0.0-1.0); EOS # 0.2 10^3/uL (0.0-0.50); EOS % 2.3 % (0.0-3.0); HEMATOCRIT 36.8 % (36.0-47.0); HEMOGLOBIN 11.7 g/dl (12.0-15.5); LYMPH % 19.4 % (24.0-44.0); MEAN CORPUSCULAR HEMOGLOBIN 30.2 pg (27.0-33.0); MEAN CORPUSCULAR HGB CONC 31.8 g/dl (32.0-36.5); MEAN CORPUSCULAR VOLUME 95.1 fl (80.0-96.0); MONO # 0.7 10^3/uL (0.0-0.8); MONO % 6.5 % (0.0-5.0); NEUTROPHILS # 7.2 10^3/uL (1.8-7.7); PLATELET COUNT, AUTOMATED 215 10^3/uL (150-450); RED BLOOD COUNT 3.87 10^6/uL (4.00-5.40); WHITE BLOOD COUNT 10.2 10^3/uL (4.0-10.0)
[2019-03-19] MEDS ORDERED: ALBUTEROL SULFATE 2.5 MG/0.5 ML INH NEB SOLN INH ONE (22:45)
[2019-03-19] MEDS ORDERED: IPRATROPIUM 0.5MG/ALBUTEROL 2.5MG INH SOL UD 3ML (DUONEB)(J7620) NEB ONE (22:45)
[2019-03-19 22:52] LABS: INR 0.99; PROTHROMBIN TIME 13.2 SECONDS (12.1-14.4)
[2019-03-19 23:00] LABS: HCG, SERUM QUALITATIVE NEGATIVE (NEGATIVE)
[2019-03-19 23:10] LABS: ALBUMIN 3.3 GM/DL (3.2-5.2); ALT/SGPT 18 U/L (12-78); BILIRUBIN,DIRECT < 0.1 MG/DL (0.0-0.2); BILIRUBIN,TOTAL 0.3 MG/DL (0.2-1.0); BLOOD UREA NITROGEN 15 MG/DL (7-18); CALCIUM LEVEL 8.7 MG/DL (8.5-10.1); CARBON DIOXIDE LEVEL 30 MEQ/L (21-32); CHLORIDE LEVEL 106 MEQ/L (98-107); CK-MB VALUE MASS < 1.0 NG/ML (<3.6); CPK CREATINE PHOSPHOKINASE 39 U/L (26-192); CREATININE FOR GFR 0.96 MG/DL (0.55-1.30); GLOMERULAR FILTRATION RATE > 60.0 (>58); GLUCOSE, FASTING 111 MG/DL (70-100); MB/CK RELATIVE INDEX 2.56 (< OR =4); NT-PRO BNP 63 PG/ML (<125); POTASSIUM SERUM 3.8 MEQ/L (3.5-5.1); SODIUM LEVEL 145 MEQ/L (136-145); TROPONIN I < 0.02 NG/ML (< 0.10)
[2019-03-19] MEDS ORDERED: AZITHROMYCIN 250 MG TAB PO ONE (23:45)
[2019-03-19] MEDS ORDERED: dexameTHASONE 20 MG/5 ML VIAL (J1100) IV ONE (23:45)
[2019-03-19] MEDS ORDERED: ABIL400I IM (23:57)
[2019-03-19] MEDS ORDERED: ARIP1TAB6 PO (23:57)
[2019-03-19] MEDS ORDERED: BENZ-52 PO (23:57)
[2019-03-19] MEDS ORDERED: LORA-674 PO (23:57)
[2019-03-19] MEDS ORDERED: FISH1000 PO (23:57)
[2019-03-19] MEDS ORDERED: BUPR150T3 PO (23:57)
[2019-03-19] MEDS ORDERED: IPRA0.00 NEB (23:58)
[2019-03-20] MEDS ORDERED: ISOVUE-370 76% 100ML VIAL (Q9967) As Ordered ONE (00:30)
[2019-03-20 03:00] VITALS: BP 123/77
[2019-03-20] MEDS ORDERED: AZIT-12 PO (04:23)
[2019-03-20] MEDS ORDERED: TESS100C PO (04:23)
[2019-03-20] MEDS ORDERED: PRED20TA PO (04:23)
--- NOTE | 2019-03-20 08:46 | REP ---
Clinical: Cough and dyspnea. Technique: PA and lateral. Comparison: 12/13/2018. Findings: Mediastinum and cardiac silhouette are normal. Lung osman are clear. No consolidation, effusion, or pneumothorax. Skeletal structures are intact. Impression: No acute cardiopulmonary process or focal consolidation. Electronically Signed by Santos Diaz MD 03/20/2019 08:37 A
--- NOTE | 2019-03-20 09:51 | REP ---
Clinical: Pain and shortness of breath. Technique: Axial contrast enhanced images from the thoracic inlet to the upper abdomen using pulmonary embolus technique including multiplanar re-formations and MIP reconstructions. 100 ml Isovue 370 intravenous contrast material administered without complication. Findings: Suboptimal enhancement of the pulmonary vasculature may be secondary to timing of image acquisition in relation to contrast administration. No obvious main pulmonary artery emboli identified. Further evaluation is incomplete. Thoracic aorta is normal and without aneurysm or dissection. Heart and pericardium appear normal. No axillary, hilar, or mediastinal adenopathy appreciated. Bilateral lung osman are relatively well aerated and without consolidation, significant nodule or mass lesion. Few scattered calcified granulomata noted. Trace lingular atelectasis versus chronic change suggested. No effusion. No pneumothorax. Musculoskeletal structures intact without focal abnormality. Limited upper abdomen demonstrates normal bilateral adrenal glands and evidence of prior cholecystectomy. Impression: 1. Suboptimal enhancement of the pulmonary vasculature limits evaluation. No obvious pulmonary embolus within the bilateral main pulmonary arteries noted. 2. Minimal lingular atelectasis versus chronic change. 3. Evidence of prior granulomatous disease. Electronically Signed by Santos Diaz MD 03/20/2019 09:44 A
--- NOTE | 2019-03-20 19:23 | ECGEPIP ---
[facility] - ED Test Date: 2019-03-19 Pat Name: MARY KAY ENRIQUEZ Department: Room: - Gender: Female Chip Crusher Operator: ALYSON : 1975 Requested By: EMMA Cuellar Order Number: [id number] Reading MD: Abhinav Lam Measurements Intervals [place] Rate: 91 P: 24 TX: 137 QRS: QRSD: 107 T: 20 QT: 367 QTc: 452 Interpretive Statements SINUS RHYTHM INFERIOR MYOCARDIAL INFARCTION, PROBABLY OLD NONSPECIFIC ST T WAVE CHANGES Borderline prolonged QT interval IVCD CW 03/13/[address] T WAVE CHANGES Electronically Signed on 03-20-2019 19:23:27 EDT by Abhinav Lam
[2019-03-25] MEDS ORDERED: TRAZ1TAB10 PO (09:14)
== END 2019-03-20 04:29 | disposition home or self-care (01) ==
LOC: M ED 22:06
DX: J40 Bronchitis, not specified as acute or chronic (principal); E11.9 Type 2 diabetes mellitus without complications; J44.9 Chronic obstructive pulmonary disease, unspecified; J45.909 Unspecified asthma, uncomplicated; E78.5 Hyperlipidemia, unspecified; E03.9 Hypothyroidism, unspecified; Z79.899 Other long term (current) drug therapy; Z79.890 Hormone replacement therapy; Z79.84 Long term (current) use of oral hypoglycemic drugs; Z88.0 Allergy status to penicillin; Z88.5 Allergy status to narcotic agent; Z88.8 Allergy status to other drugs, medicaments and biological substances; Z91.040 Latex allergy status
CPT/HCPCS: 36415; 71046; 71275; 80048; 80076; 82550; 82553; 83605; 83880; 84443; 84703; 85025; 85610; 87040; 93005; 93041; 94640; 94760; 96374; 99285; J1100; Q9967

== ENCOUNTER 2019-03-22 10:08 | Inpatient (IN) | payer MEDICAID ==
[~2019-03-22] VITALS: Ht 160 cm; Wt 120.4 kg
[~2019-03-22 10:08] MED LIST changes: +ABIL400I IM; +AZIT-12 PO; +BUPR150T3 PO; +FISH1000 PO; +IPRA0.00 NEB; +LORA-674 PO; +PRED20TA PO; +TESS100C PO; -TRAZ1TAB10 PO; +TRAZO50TA PO
[2019-03-22 10:56] LABS: HEMATOCRIT 37.8 % (36.0-47.0); HEMOGLOBIN 11.8 g/dl (12.0-15.5); MEAN CORPUSCULAR HGB CONC 31.2 g/dl (32.0-36.5); MEAN CORPUSCULAR VOLUME 96.2 fl (80.0-96.0); PLATELET COUNT, AUTOMATED 259 10^3/uL (150-450); RED BLOOD COUNT 3.93 10^6/uL (4.00-5.40)
[2019-03-22 11:15] LABS: AMPHETAMINES LEVEL URINE NEGATIVE (NEGATIVE); BARBITURATES URINE NEGATIVE (NEGATIVE); BENZODIAZEPINES URINE NEGATIVE (NEGATIVE); CANNABINOIDS URINE NEGATIVE (NEGATIVE); COCAINE METABOLITE URINE NEGATIVE (NEGATIVE); METHADONE URINE NEGATIVE (NEGATIVE); OPIATES URINE NEGATIVE (NEGATIVE); PHENCYCLIDINE URINE NEGATIVE (NEGATIVE)
[2019-03-22 11:18] LABS: HCG, SERUM QUALITATIVE NEGATIVE (NEGATIVE)
[2019-03-22 11:24] LABS: ACETAMINOPHEN LEVEL < 2.0 UG/ML (10.0-30.0); ALBUMIN 3.4 GM/DL (3.2-5.2); ALT/SGPT 21 U/L (12-78); BILIRUBIN,DIRECT < 0.1 MG/DL (0.0-0.2); BILIRUBIN,TOTAL 0.3 MG/DL (0.2-1.0); BLOOD UREA NITROGEN 15 MG/DL (7-18); CALCIUM LEVEL 8.5 MG/DL (8.5-10.1); CARBON DIOXIDE LEVEL 30 MEQ/L (21-32); CHLORIDE LEVEL 109 MEQ/L (98-107); CREATININE FOR GFR 0.72 MG/DL (0.55-1.30); ETHYL ALCOHOL (ETHANOL) < 0.003 % (0.000-0.010); GLOMERULAR FILTRATION RATE > 60.0 (>58); GLUCOSE, FASTING 75 MG/DL (70-100); SALICYLATE LEVEL < 1.7 MG/DL (5.0-30.0); SODIUM LEVEL 144 MEQ/L (136-145); THYROID STIMULATING HORMONE 0.663 uIU/ML (0.358-3.740); TOTAL PROTEIN 6.1 GM/DL (6.4-8.2); VALPROIC ACID (DEPAKOTE) 4.5 UG/ML (50.0-100.0)
[2019-03-22] MEDS ORDERED: BENZONATATE 100 MG CAP PO ONE (16:30)
[2019-03-22] MEDS ORDERED: oxyBUTYnin 5 MG TAB PO ONE (16:30)
[2019-03-22] MEDS ORDERED: AZITHROMYCIN 250 MG TAB PO ONE (20:30)
[2019-03-22] MEDS ORDERED: PRAZOSIN 1 MG CAP PO ONE (20:30)
[2019-03-22] MEDS ORDERED: ATORVASTATIN 20 MG TAB PO ONE (20:30)
[2019-03-22] MEDS ORDERED: predniSONE 20 MG TAB PO ONE (20:30)
[2019-03-22] MEDS ORDERED: MONTELUKAST 10 MG TAB PO ONE (21:00)
--- NOTE | 2019-03-22 21:06 | ECGEPIP ---
[facility] - ED Test Date: 2019-03-22 Pat Name: MARY KAY ENRIQUEZ Department: Room: - Gender: Female Dietician: NURY : 1975 Requested By: Catalina Gibson Order Number: [id number] Reading MD: Catalina Gibson Measurements Intervals [place] Rate: 52 P: 27 [place]: 142 QRS: QRSD: 108 T: 20 QT: 454 QTc: 423 Interpretive Statements SINUS BRADYCARDIA DECREASED RATE 03/19/19 Electronically Signed on 03-22-2019 21:06:28 EDT by Catalina Gibson
[2019-03-23] MEDS ORDERED: LEVOTHYROXINE 25MCG TABLET (0.025MG) PO SCH (10:30)
[2019-03-23] MEDS ORDERED: BENZTROPINE 1 MG TAB PO SCH (10:30)
[2019-03-23] MEDS ORDERED: metFORMIN (GLUCOPHAGE) 500 MG TAB PO SCH (10:30)
[2019-03-23] MEDS ORDERED: buPROPion **XL** TABLET 150MG (WELLBUTRIN XL) PO SCH (10:30)
[2019-03-23] MEDS: metFORMIN (GLUCOPHAGE) 500 MG TAB PO SCH ×2 (11:28→18:00)
[2019-03-23] MEDS: oxyBUTYnin 5 MG TAB PO SCH ×3 (11:29→21:00)
[2019-03-23] MEDS ORDERED: IBUPROFEN 600 MG TAB PO ONE (15:30)
[2019-03-23] MEDS ORDERED: ACETAMINOPHEN TAB 650MG DOSE (2X325MG) PO PRN (18:45)
[2019-03-23] MEDS ORDERED: MOM 30ML SUSPENSION UDC PO PRN (18:45)
[2019-03-23] MEDS ORDERED: MAALOX 30 ML SUSP *UDC PO PRN (18:45)
[2019-03-23] MEDS ORDERED: traZODone 50 MG TAB PO PRN (18:45)
[2019-03-23] MEDS ORDERED: ALBUTEROL 90 MCG/ACT 8GM HFA INHALER INH PRN (19:30)
[2019-03-23] MEDS ORDERED: ALBUTEROL SULFATE 2.5 MG/0.5 ML INH NEB SOLN INH PRN (19:30)
[2019-03-23] MEDS ORDERED: PRAZOSIN 1 MG CAP PO ONE (22:15)
[2019-03-23] MEDS ORDERED: MONTELUKAST 10 MG TAB PO ONE (22:15)
[2019-03-23 23:56] VITALS: BP 119/77
[2019-03-24] MEDS: LEVOTHYROXINE 25MCG TABLET (0.025MG) PO SCH (05:50)
[2019-03-24] MEDS: metFORMIN (GLUCOPHAGE) 500 MG TAB PO SCH ×2 (08:04→17:18)
[2019-03-24] MEDS: BENZTROPINE 1 MG TAB PO SCH (08:04)
[2019-03-24] MEDS: buPROPion **XL** TABLET 150MG (WELLBUTRIN XL) PO SCH (08:04)
[2019-03-24] MEDS: oxyBUTYnin 5 MG TAB PO SCH ×3 (08:04→20:22)
[2019-03-24] MEDS: ATORVASTATIN 20 MG TAB PO SCH (08:04)
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
[2019-03-24 11:57] VITALS: BP 90/60
[2019-03-24] MEDS: hydrOXYzine 50 MG TAB PO SCH ×2 (12:09→17:17)
--- NOTE | 2019-03-24 14:44 | HPEPDOC ---
General Date of Admission March 23, 2019 at 18:39 Date of Service: March 24, 2019 Attending Physician: ARTIE DUPONT MD Chief Complaint The patient is a 43-year-old female admitted with a reason for visit of [place]. History of Present Illness Patient is a 43-year-old female, past medical history significant for hypertension, type 2 diabetes mellitus, hypothyroidism, bipolar disorder, schizophrenia, intellectual disability. Patient was admitted on account of suicide ideation and homicidal ideation towards other residents of the facility where patient resides. Patient supposedly called the [facility] crisis line with reports of suicidal id eation and plan to place self in front of moving vehicle or stabbing self with knife. She was admitted to inpatient psychiatric unit for further monitoring and management. On assessment, she states her cough is improved, she has been tolerating antibiotics without issues. Denies chills, fever, chest pain, shortness of breath.She complains of constipation Home Medications Scheduled Aripiprazole (Aripiprazole) 5 Mg Tablet, 5 MG PO DAILY, (Reported) Aripiprazole Monohydrate (Abilify Maintena) 400 Mg Suser.vial, 400 MG IM Q4WKS, (Reported) PT DUE FOR NEXT INJ ON 03/24/19 Atorvastatin Calcium (Lipitor) 20 Mg Tablet, 20 MG PO DAILY, (Reported) Azithromycin (Azithromycin) 250 Mg Tablet, 250 MG PO DAILY Benzonatate (Tessalon Perle) 100 Mg Capsule, 100 MG PO TID for cough Benztropine Mesylate (Benztropine Mesylate) 1 Mg Tablet, 1 MG PO DAILY, (Reported) Budesonide (Budesonide) 0.5 Mg/2 Ml Ampul.neb, 0.5 MG NEB BID, (Reported) Bupropion Hcl (Bupropion Xl) 150 Mg Tab.er.24h, 150 MG PO DAILY, (Reported) Ergocalciferol (Vitamin D2) (Vitamin D2) 50,000 Unit Capsule, 50,000 UNIT PO QWEEK, (Reported) THURSDAYS Folic Acid (Folic Acid) 1 Mg Tab, 1 MG PO DAILY, (Reported) Levothyroxine Sodium (Synthroid) 25 Mcg Tab, 25 MCG PO QAM for , (Reported) Loratadine (Loratadine) 10 Mg Tablet, 10 MG PO DAILY, (Reported) Metformin HCl (Glucophage) 500 Mg Tab, 500 MG PO BIDWM, (Reported) Montelukast Sodium (Montelukast Sodium) 10 Mg Tab, 10 MG PO QHS for , (Reported) Multivitamin (Tab-A-Rodrigo) 1 Each Tablet, 1 TAB PO DAILY, (Reported) [place]-3 Fatty Acids/Fish Oil (Fish Oil 1,000 mg Capsule) 1 Each Capsule, 1,000 MG PO BID, (Reported) Oxybutynin Chloride (Oxybutynin Chloride) 5 Mg Tab, 5 MG PO TID, (Reported) AM, 1630, HS Prazosin Hcl (Prazosin HCl) 1 Mg Cap, 1 MG PO QHS, (Reported) Prednisone (Prednisone) 20 Mg Tablet, 40 MG PO DAILY Thiamine HCl (Thiamine HCl) 100 Mg Tab, 100 MG PO DAILY, (Reported) Scheduled PRN Albuterol Sulfate (Albuterol Sulfate) 2.5 Mg/0.5 Ml Neb, 2.5 MG INH Q4H PRN for SHORTNESS OF BREATH, (Reported) Albuterol Sulfate (Ventolin Hfa) 108 Mcg/Act Aer, 2 PUFFS INH Q4H PRN for SHORT NESS OF BREATH, (Reported) Ipratropium/Albuterol Sulfate (Iprat-Albut 0.5-3(2.5) mg/3 ml) 3 Ml Ampul.neb, 3 ML NEB Q4H PRN for SHORTNESS OF BREATH, (Reported) Allergies Coded Allergies: Penicillins (Verified Allergy, Intermediate, RASH, 03/19/19) hydrocodone (Verified Allergy, Mild, RASH, 03/19/19) latex (Verified Allergy, Unknown, rash, 03/19/19) acetaminophen (Verified Adverse Reaction, Intermediate, LIVER FXN, 03/19/19) AVOIDS PER LIVER FXN Past Medical History Medical History Hypertension Type 2 diabetes mellitus Obesity Hypothyroidism Bipolar disorder Schizophrenia Intellectual disability Depression, anxiety Surgical History Umbilical hernia repair Cholecystectomy Right knee arthroscopy Tubal ligation Hysterectomy Family History Denies any pertinent family history Social History * Smoker: Denies Alcohol: Denies Drugs: denies A-FIB/CHADSVASC A-FIB History Current/History of A-Fib/PAF?: No Current PO Anticoag Therapy: No Review of Systems Other systems A 10 point pertinent review of systems was completed, negative except as stated in the history of presenting illness. Physical Examination Other physical findings GENERAL: Obese, no distress noted SKIN : Warm, dry intact HEENT: Atraumatic, normocephalic, PERRL, moist mucous membrane CARDIOVASCULAR: Regular rate and rhythm, S1S2, no JVD, no edema, distal pulses + and palpable RESP: CTAB, no accessory muscle use noted ABDOMEN: BS+ non distended non tender MS: no joint deformities NEURO: Alert and oriented x 3, CN2-12 grossly intact PSYCH: no anxiety or agitation, appropriate mood and affect. Vital Signs Vital Signs Date Time Temp Pulse Resp B/P (MAP) Pulse Ox O2 Delivery O2 Flow Rate FiO2 03/24/19 11:57 98.5 103 18 90/60 (70) 03/23/19 22:01 100 Room Air Laboratory Data Labs 24H Laboratory Tests 2 03/23/19 22:25: Bedside Glucose (Misc Panel) 103 03/24/19 12:00: Bedside Glucose (Misc Panel) 73 Assessment/Plan Hypertension Type 2 diabetes mellitus Hypothyroidism Morbid obesity Constipation Bipolar disorder Schizophrenia/suicide ideation/homicidal ideation PLAN Continue prazosin for blood pressure control Continue metformin for diabetes mellitus management Continue levothyroxine for hypothyroidism Colace has been prescribed for reported constipation Management of underlying acute psychiatric issues by primary team Plan / VTE VTE Prophylaxis Ordered?: No VTE Exclusion Mechanical Proph: Low Risk for VTE DEBRA ENRIQUEZ March 24, 2019 14:44
[2019-03-24] MEDS: DOCUSATE SODIUM 100 MG CAP PO SCH (16:05)
[2019-03-24 18:05] VITALS: BP 138/64
[2019-03-24 20:23] VITALS: BP 140/78
[2019-03-24] MEDS ORDERED: PRAZOSIN 1 MG CAP PO SCH (21:00)
[2019-03-24 22:41] VITALS: BP 102/70
[2019-03-25] MEDS: hydrOXYzine 50 MG TAB PO SCH ×2 (00:17→06:14)
[2019-03-25] MEDS: LEVOTHYROXINE 25MCG TABLET (0.025MG) PO SCH (06:14)
[2019-03-25 06:39] VITALS: BP 112/58
[2019-03-25] MEDS: oxyBUTYnin 5 MG TAB PO SCH (08:48)
[2019-03-25] MEDS: buPROPion **XL** TABLET 150MG (WELLBUTRIN XL) PO SCH (08:48)
[2019-03-25] MEDS: BENZTROPINE 1 MG TAB PO SCH (08:48)
[2019-03-25] MEDS: ATORVASTATIN 20 MG TAB PO SCH (08:48)
[2019-03-25] MEDS: DOCUSATE SODIUM 100 MG CAP PO SCH (08:48)
[2019-03-25] MEDS: metFORMIN (GLUCOPHAGE) 500 MG TAB PO SCH (08:48)
[2019-03-25] MEDS ORDERED: BENZ-52 PO (09:14)
[2019-03-25] MEDS ORDERED: ABIL400I IM (09:14)
[2019-03-25] MEDS ORDERED: BUPR150T3 PO (09:14)
[2019-03-25] MEDS ORDERED: ARIP1TAB6 PO (09:14)
[2019-03-25] MEDS ORDERED: TRAZO50TA PO (09:14)
[2019-03-25] MEDS ORDERED: HYDRO50TAB PO (09:14)
[2019-03-25] MEDS ORDERED: MINI1CAP PO (09:14)
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
[2019-03-25] MEDS ORDERED: ARIPiprazole MONOHYDRATE 400 MG INJ (ABILIFY)(J0401) IM ONE (11:00)
== END 2019-03-25 10:15 | disposition home or self-care (01) | DRG 753 ==
LOC: M ED 10:08 → M ED INP 03-23 18:39 → M PSY 03-23 23:44
PROVIDERS: ADMIT Psychiatry & Neurology Psychiatry; ATTEND Psychiatry & Neurology Psychiatry
DX: F31.9 Bipolar disorder, unspecified (principal); E11.9 Type 2 diabetes mellitus without complications; I10 Essential (primary) hypertension; F79 Unspecified intellectual disabilities; F60.89 Other specific personality disorders; E66.9 Obesity, unspecified; E03.9 Hypothyroidism, unspecified; Z79.52 Long term (current) use of systemic steroids; Z79.899 Other long term (current) drug therapy; Z88.0 Allergy status to penicillin; Z88.5 Allergy status to narcotic agent; Z88.6 Allergy status to analgesic agent; Z91.040 Latex allergy status; Z79.84 Long term (current) use of oral hypoglycemic drugs

== ENCOUNTER 2020-04-29 13:23 | Emergency (ER) | payer MEDICAID ==
[~2020-04-29] VITALS: Ht 160 cm; Wt 113.6 kg
[~2020-04-29 13:23] MED LIST changes: -FLUO20CA19 PO; +FLUO20CA22 PO; +GUAI100L12 PO; +HYDR1TAB33 PO; -MONT10TA2 PO; +MONT10TA4 PO; +OMEP1CAP73 PO; -OMEP20CA3 PO; -PYRI100T2 PO; -ROBA100S5 PO; +SENN-53 PO; -SENN1TAB40 PO; -TOPI25CA PO; +TOPI25CA3 PO; -TRAZ-163 PO; +TRAZ-257 PO; +TRAZ1TAB10 PO; -TRAZO50TA PO; +VITA100T82 PO
[2020-04-29 13:28] VITALS: BP 132/72
[2020-04-29] MEDS ORDERED: SERT-138 (13:43)
[2020-04-29] MEDS ORDERED: SERT50TA29 (13:43)
[2020-04-29] MEDS ORDERED: ASPI81TA85 PO (13:43)
[2020-04-29] MEDS ORDERED: QUET5TAB (13:43)
[2020-04-29] MEDS ORDERED: FURO20TA2 (13:43)
[2020-04-29] MEDS ORDERED: DEPA1TAB3 PO (13:43)
[2020-04-29] MEDS ORDERED: VITAD400CA FT (13:45)
== END 2020-04-29 14:47 | disposition home or self-care (01) ==
LOC: M ED 13:23
DX: F33.9 Major depressive disorder, recurrent, unspecified (principal); E11.9 Type 2 diabetes mellitus without complications; J44.9 Chronic obstructive pulmonary disease, unspecified; E78.00 Pure hypercholesterolemia, unspecified; K21.9 Gastro-esophageal reflux disease without esophagitis; E03.9 Hypothyroidism, unspecified; F31.9 Bipolar disorder, unspecified; Z79.82 Long term (current) use of aspirin; Z79.84 Long term (current) use of oral hypoglycemic drugs; Z79.899 Other long term (current) drug therapy; Z88.0 Allergy status to penicillin; Z88.6 Allergy status to analgesic agent; Z88.5 Allergy status to narcotic agent; Z91.040 Latex allergy status

== ENCOUNTER → 2022-12-25 | Outpatient (REF) | payer MEDICAID ==
[~2022-12-25] MED LIST changes: -ASPI81TA85 PO; +ASPI81TA86 PO; -BENZ-52 PO; +BENZ1TAB5 PO; +BUPR150T12 PO; -BUPR150T3 PO; -CLIN150C14 PO; +CLIN150C17 PO; +DEPA1TAB3 PO; -DICY20TA PO; +DICY20TA3 PO; +DIVA125C6 PO; -DIVA1CAP PO; +FURO20TA2; +GABA-282 PO; -GABA-843 PO; -KLOR10TA76 PO; -LATU40TA PO; +LATU40TA2 PO; +MIRT-62; -MONT10TA4 PO; +MONT10TA97 PO; -PHEN-594 PO; +PHEN1TAB74 PO; +POTA-136 PO; +QUET50TA4; -REME15TA; +RISP-9 PO; -RISP2TAB3 PO; +SERT-138; +SERT50TA29; -TAB-TAB PO; +TAB-TAB2 PO; -TOPI25CA3 PO; +TOPI25CA5 PO; +VITAD400CA FT
[2022-12-25 16:22] LABS: APPEARANCE, URINE TURBID (CLEAR); BACTERIA, URINE AUTO 2+ (NEGATIVE); BILIRUBIN, URINE AUTO NEGATIVE (NEGATIVE); BLOOD, URINE BLOOD 1+ (NEGATIVE); CALCIUM OXALATE CRYSTALS LARGE; COLOR, URINE YELLOW (YELLOW); GLUCOSE, URINE (UA) AUTO NEGATIVE (NEGATIVE); KETONE, URINE AUTO NEGATIVE (NEGATIVE); LEUKOCYTE ESTERASE, URINE AUTO 3+ (NEGATIVE); MUCUS, URINE LARGE (NEGATIVE); NITRITE, URINE AUTO NEGATIVE (NEGATIVE); PROTEIN, URINE AUTO 1+ mg/dL (NEGATIVE); RBC, URINE AUTO 12 /HPF (0-3); SPECIFIC GRAVITY URINE AUTO 1.019 (1.002-1.035); SQUAMOUS EPITHELIAL CELL UR AU 6 /HPF (0-6); UROBILINOGEN, URINE AUTO 0.2 mg/dL (0.0-2.0); WBC, URINE AUTO TNTC /HPF (0-3)
== END ==
LOC: M SMT 15:15
PROVIDERS: ATTEND Physician Assistant
DX: N39.0 Urinary tract infection, site not specified (principal)

== ENCOUNTER → 2023-05-13 | Outpatient (REF) | payer MEDICAID ==
[~2023-05-13] MED LIST changes: -FLUT11IN INH; +FLUT12AE6 INH; +NYST100085 TOP; -NYSTOI TOP; +SENN-111 PO; -SENN18TA PO
[2023-05-13 18:59] LABS: APPEARANCE, URINE CLEAR (CLEAR); BACTERIA, URINE AUTO 1+ (NEGATIVE); BILIRUBIN, URINE AUTO NEGATIVE (NEGATIVE); BLOOD, URINE BLOOD NEGATIVE (NEGATIVE); COLOR, URINE YELLOW (YELLOW); GLUCOSE, URINE (UA) AUTO NEGATIVE (NEGATIVE); KETONE, URINE AUTO NEGATIVE (NEGATIVE); LEUKOCYTE ESTERASE, URINE AUTO NEGATIVE (NEGATIVE); MUCUS, URINE SMALL (NEGATIVE); NITRITE, URINE AUTO NEGATIVE (NEGATIVE); PROTEIN, URINE AUTO NEGATIVE (NEGATIVE); RBC, URINE AUTO 1 /HPF (0-3); SPECIFIC GRAVITY URINE AUTO 1.014 (1.002-1.035); SQUAMOUS EPITHELIAL CELL UR AU 3 /HPF (0-6); UROBILINOGEN, URINE AUTO 0.2 mg/dL (0.0-2.0); WBC, URINE AUTO 1 /HPF (0-3)
== END ==
LOC: M SMT 17:57
PROVIDERS: ATTEND Urology
DX: N39.41 Urge incontinence (principal)

== ENCOUNTER 2023-08-07 06:40 | Day surgery (SDC) | payer MEDICAID ==
[~2023-08-07] VITALS: Ht 160 cm; Wt 144.4 kg
[~2023-08-07 06:40] MED LIST changes: +BENZTROPINE PO; +BUSP10TA PO; +COLA100C5 PO; +ECOT81TA5 PO; +HYDR-643 PO; +LEVOTAB10 PO; +LORA-1041 PO; -LORA-674 PO; -MIRT-62; +MIRT-88; +MONT-5 PO; +OS-CTAB PO; -OXYB5TAB10 PO; +OXYB5TAB11 PO; +POTA-164 PO; +PROTPAK PO; +SEMA2PEN SQ; +TREL1AER IN; +TRIL1TAB PO; +VIBE75TA PO; +VITA500045 PO; +ZOLO100T PO; +[UNRECOGNIZED DRUG - OTHER] PO
[2023-08-07] MEDS ORDERED: LR 1,000 ML IV SCH (07:10)
[2023-08-07] MEDS ORDERED: ceFAZolin SOD 2 GM in IV 1 EA IV ONE (07:45)
[2023-08-07] MEDS ORDERED: ceFAZolin SOD 1 GM in D5W MINI-BAG PLUS 50 ML IV ONE (07:45)
[2023-08-07] MEDS ORDERED: propofoL 200 MG/20 ML VIAL As Ordered ONE (08:36)
[2023-08-07] MEDS ORDERED: ONDANSETRON 4MG 2ML VIAL As Ordered ONE (08:36)
[2023-08-07] MEDS ORDERED: MIDAZOLAM INJ 2MG/2ML VIAL As Ordered ONE (08:36)
[2023-08-07] MEDS ORDERED: LIDOCAINE 2% 100MG/5ML SDV (FOR ANES.) As Ordered ONE (08:36)
[2023-08-07] MEDS ORDERED: fentaNYL 100 MCG/2 ML INJECTION As Ordered ONE (08:36)
[2023-08-07] MEDS ORDERED: LIDOCAINE 1% SDV 30ML VIAL As Ordered ONE (09:14)
[2023-08-07] MEDS ORDERED: CEPH500C PO (10:17)
[2023-08-07 11:30] VITALS: BP 132/70; TEMP 97.7; O2SAT 96
== END 2023-08-07 11:45 | disposition home or self-care (01) ==
LOC: M SDC 06:40
PROVIDERS: ATTEND Urology
DX: R39.81 Functional urinary incontinence (principal); E03.9 Hypothyroidism, unspecified; J45.909 Unspecified asthma, uncomplicated; F32.A Depression, unspecified; F20.9 Schizophrenia, unspecified; F31.9 Bipolar disorder, unspecified; Z79.82 Long term (current) use of aspirin; Z79.899 Other long term (current) drug therapy; Z79.51 Long term (current) use of inhaled steroids; Z88.0 Allergy status to penicillin; Z88.5 Allergy status to narcotic agent; Z88.8 Allergy status to other drugs, medicaments and biological substances; Z91.040 Latex allergy status
CPT/HCPCS: 64561; 76000; C1778; C1897; J0690; J2250; J2405; J3010

== ENCOUNTER 2023-08-18 06:49 | Day surgery (SDC) | payer MEDICAID ==
[~2023-08-18] VITALS: Ht 160 cm; Wt 142.0 kg
[~2023-08-18 06:49] MED LIST changes: +CEPH500C PO; +UNRESOLVED CLARIFICATION ENTRY XX SCH
[2023-08-18] MEDS ORDERED: ceFAZolin SOD 2 GM in IV 1 EA IV ONE (07:30)
[2023-08-18] MEDS ORDERED: propofoL 200 MG/20 ML VIAL As Ordered ONE (07:48)
[2023-08-18] MEDS ORDERED: ONDANSETRON 4MG 2ML VIAL As Ordered ONE (07:48)
[2023-08-18] MEDS ORDERED: LIDOCAINE 2% 100MG/5ML SDV (FOR ANES.) As Ordered ONE (07:48)
[2023-08-18] MEDS ORDERED: MIDAZOLAM INJ 2MG/2ML VIAL As Ordered ONE ×2 (08:08→09:37)
[2023-08-18] MEDS ORDERED: fentaNYL 100 MCG/2 ML INJECTION As Ordered ONE (08:08)
[2023-08-18] MEDS ORDERED: LIDOCAINE 1% SDV 30ML VIAL As Ordered ONE ×2 (08:32→09:21)
[2023-08-18] MEDS: ceFAZolin SOD 1 GM in D5W MINI-BAG PLUS 50 ML IV ONE ×2 (09:00→09:30)
[2023-08-18] MEDS ORDERED: HYDR-3713 PO (10:08)
[2023-08-18] MEDS ORDERED: CEPH500C PO (10:08)
[2023-08-18 10:46] VITALS: BP 141/85; TEMP 97.9; O2SAT 96
== END 2023-08-18 12:17 | disposition home or self-care (01) ==
LOC: M SDC 06:49
PROVIDERS: ATTEND Urology
DX: R39.81 Functional urinary incontinence (principal); Z79.51 Long term (current) use of inhaled steroids; Z79.899 Other long term (current) drug therapy
CPT/HCPCS: 64581; 64590; 76000; C1778; C1787; C1894; J0690; J2250; J2405; J3010

== ENCOUNTER 2024-03-08 08:44 | Day surgery (SDC) | payer MEDICAID ==
[~2024-03-08] VITALS: Ht 160 cm; Wt 136.4 kg
[~2024-03-08 08:44] MED LIST changes: -FURO20TA2; +FURO20TA2 PO; +HYDR-3713 PO; -OXYB5TAB11 PO; +OXYB5TAB14 PO; +POTA-298 PO; +RISP-106 PO; -RISP-9 PO; -UNRESOLVED CLARIFICATION ENTRY XX SCH
[2024-03-08] MEDS ORDERED: LR 1,000 ML IV SCH (08:55)
[2024-03-08] MEDS ORDERED: ceFAZolin 1GM VIAL As Ordered ONE (09:42)
[2024-03-08] MEDS ORDERED: ceFAZolin 2 GM/D5W 50 ML IV BAG As Ordered ONE (09:43)
[2024-03-08] MEDS: ceFAZolin SOD 2 GM in IV 1 EA IV ONE (09:58)
[2024-03-08] MEDS: ceFAZolin SOD 1 GM in D5W MINI-BAG PLUS 50 ML IV ONE (09:58)
[2024-03-08] MEDS ORDERED: dexmedeTOMIDine (4MCG/ML)200MCG/50ML BTL (PRECEDEX) As Ordered ONE (10:20)
[2024-03-08] MEDS ORDERED: METOCLOPRAMIDE INJ 10MG/2ML VIAL As Ordered ONE (10:20)
[2024-03-08] MEDS ORDERED: ONDANSETRON 4MG 2ML VIAL As Ordered ONE (10:20)
[2024-03-08] MEDS ORDERED: MIDAZOLAM INJ 2MG/2ML VIAL As Ordered ONE (10:20)
[2024-03-08] MEDS ORDERED: fentaNYL 100 MCG/2 ML INJECTION As Ordered ONE (10:20)
[2024-03-08] MEDS ORDERED: LIDOCAINE 2% 100MG/5ML SDV (FOR ANES.) As Ordered ONE (10:20)
[2024-03-08] MEDS ORDERED: propofoL 200 MG/20 ML VIAL As Ordered ONE (10:20)
[2024-03-08] MEDS: LIDOCAINE 1% SDV 30ML VIAL As Ordered ONE (10:31)
[2024-03-08 11:30] VITALS: BP 133/77; TEMP 97.3; O2SAT 98
== END 2024-03-08 11:55 | disposition home or self-care (01) ==
LOC: M SDC 08:44
PROVIDERS: ATTEND Urology
DX: T83.84XA Pain due to genitourinary prosthetic devices, implants and grafts, initial encounter (principal); Z45.42 Encounter for adjustment and management of neurostimulator; N32.81 Overactive bladder; F41.9 Anxiety disorder, unspecified; F32.A Depression, unspecified; F31.9 Bipolar disorder, unspecified; K76.0 Fatty (change of) liver, not elsewhere classified; E78.5 Hyperlipidemia, unspecified; I10 Essential (primary) hypertension; K21.9 Gastro-esophageal reflux disease without esophagitis; Z88.0 Allergy status to penicillin; Z88.5 Allergy status to narcotic agent; Z88.8 Allergy status to other drugs, medicaments and biological substances; Z91.040 Latex allergy status; Z79.51 Long term (current) use of inhaled steroids; Z79.899 Other long term (current) drug therapy
CPT/HCPCS: 64585; 64595; 76000; J0665; J0690; J1100; J2250; J2405; J2765; J3010

== ENCOUNTER → 2024-03-29 | Outpatient (REF) | payer MEDICAID ==
[~2024-03-29] MED LIST changes: +FLUO-365 PO; -FLUO20CA22 PO
[2024-03-29 12:48] LABS: APPEARANCE, URINE CLOUDY (CLEAR); BACTERIA, URINE AUTO 3+ (NEGATIVE); BILIRUBIN, URINE AUTO NEGATIVE (NEGATIVE); BLOOD, URINE BLOOD 2+ (NEGATIVE); COLOR, URINE AMBER (YELLOW); GLUCOSE, URINE (UA) AUTO NEGATIVE (NEGATIVE); KETONE, URINE AUTO NEGATIVE (NEGATIVE); LEUKOCYTE ESTERASE, URINE AUTO 3+ (NEGATIVE); MUCUS, URINE SMALL (NEGATIVE); NITRITE, URINE AUTO POSITIVE (NEGATIVE); PROTEIN, URINE AUTO 2+ mg/dL (NEGATIVE); RBC, URINE AUTO 35 /HPF (0-3); SPECIFIC GRAVITY URINE AUTO 1.018 (1.002-1.035); SQUAMOUS EPITHELIAL CELL UR AU 17 /HPF (0-6); TRANSITIONAL EPITHELIAL AUTO 4 /HPF; UROBILINOGEN, URINE AUTO 0.2 mg/dL (0.0-2.0); WBC, URINE AUTO TNTC /HPF (0-3)
== END ==
LOC: M SMT 12:12
PROVIDERS: ATTEND Physician Assistant
DX: N39.41 Urge incontinence (principal)

== ENCOUNTER → 2024-05-18 | Outpatient (REF) | payer MEDICAID ==
[2024-05-18 12:57] LABS: AMORPHOUS SEDIMENT SMALL (NEGATIVE); APPEARANCE, URINE TURBID (CLEAR); BACTERIA, URINE AUTO 3+ (NEGATIVE); BILIRUBIN, URINE AUTO NEGATIVE (NEGATIVE); BLOOD, URINE BLOOD 1+ (NEGATIVE); COLOR, URINE YELLOW (YELLOW); GLUCOSE, URINE (UA) AUTO NEGATIVE (NEGATIVE); KETONE, URINE AUTO NEGATIVE (NEGATIVE); LEUKOCYTE ESTERASE, URINE AUTO 1+ (NEGATIVE); NITRITE, URINE AUTO NEGATIVE (NEGATIVE); PROTEIN, URINE AUTO NEGATIVE (NEGATIVE); RBC, URINE AUTO 8 /HPF (0-3); SQUAMOUS EPITHELIAL CELL UR AU 46 /HPF (0-6); UROBILINOGEN, URINE AUTO 0.2 mg/dL (0.0-2.0); WBC, URINE AUTO 21 /HPF (0-3)
== END ==
LOC: M SMT 12:32
PROVIDERS: ATTEND Urology
DX: N32.81 Overactive bladder (principal)

== ENCOUNTER 2024-08-16 06:50 | Day surgery (SDC) | payer MEDICAID ==
[~2024-08-16] VITALS: Ht 160 cm; Wt 132.9 kg
[~2024-08-16 06:50] MED LIST changes: +GABA-1172 PO; -GABA-282 PO; -SENN-111 PO; +SENN-165 PO
[2024-08-16] MEDS: LR 1,000 ML IV SCH (08:30)
[2024-08-16] MEDS ORDERED: ONDANSETRON 4MG 2ML VIAL As Ordered ONE (08:46)
[2024-08-16] MEDS ORDERED: dexmedeTOMIDine (4MCG/ML)200MCG/50ML BTL (PRECEDEX) As Ordered ONE (08:46)
[2024-08-16] MEDS ORDERED: propofoL 200 MG/20 ML VIAL As Ordered ONE (08:46)
[2024-08-16] MEDS ORDERED: LIDOCAINE 2% 100MG/5ML SDV (FOR ANES.) As Ordered ONE (08:46)
[2024-08-16] MEDS ORDERED: MIDAZOLAM INJ 2MG/2ML VIAL As Ordered ONE (08:47)
[2024-08-16] MEDS ORDERED: fentaNYL 100 MCG/2 ML INJECTION As Ordered ONE (08:47)
[2024-08-16] MEDS: ceFAZolin SOD 2 GM in IV 1 EA IV ONE (09:05)
[2024-08-16] MEDS: ceFAZolin SOD 1 GM in DEXTROSE 5% (D5W) ADV/MINI-BAG 50 ML IV ONE (09:05)
[2024-08-16] MEDS: BOTOX THERAPEUTIC 100 UNIT VIAL As Ordered ONE (09:19)
[2024-08-16 09:56] VITALS: BP 125/68; TEMP 98.3; O2SAT 94
== END 2024-08-16 09:58 | disposition home or self-care (01) ==
LOC: M SDC 06:50
PROVIDERS: ATTEND Urology
DX: N32.81 Overactive bladder (principal); E03.9 Hypothyroidism, unspecified; E78.5 Hyperlipidemia, unspecified; K76.0 Fatty (change of) liver, not elsewhere classified; K21.9 Gastro-esophageal reflux disease without esophagitis; F31.9 Bipolar disorder, unspecified; F32.A Depression, unspecified; F41.9 Anxiety disorder, unspecified; J44.9 Chronic obstructive pulmonary disease, unspecified; Z79.899 Other long term (current) drug therapy; Z88.0 Allergy status to penicillin; Z88.5 Allergy status to narcotic agent; Z88.8 Allergy status to other drugs, medicaments and biological substances; Z91.040 Latex allergy status; Z79.51 Long term (current) use of inhaled steroids
CPT/HCPCS: 52287; A4215; J0585; J0690; J2250; J2405; J3010

== ENCOUNTER → 2024-12-28 | Outpatient (REF) | payer MEDICAID ==
[~2024-12-28] MED LIST changes: +BUDE90AE INH; +NYST1POW3 TOP; -NYST1POW9 TOP; -PULM90IN INH
[2024-12-28 22:12] LABS: APPEARANCE, URINE HAZY (CLEAR); BACTERIA, URINE AUTO 3+ (NEGATIVE); BILIRUBIN, URINE AUTO NEGATIVE (NEGATIVE); BLOOD, URINE BLOOD NEGATIVE (NEGATIVE); CALCIUM OXALATE CRYSTALS SMALL; COLOR, URINE YELLOW (YELLOW); GLUCOSE, URINE (UA) AUTO NEGATIVE (NEGATIVE); KETONE, URINE AUTO NEGATIVE (NEGATIVE); LEUKOCYTE ESTERASE, URINE AUTO NEGATIVE (NEGATIVE); MUCUS, URINE SMALL (NEGATIVE); NITRITE, URINE AUTO NEGATIVE (NEGATIVE); PROTEIN, URINE AUTO NEGATIVE (NEGATIVE); RBC, URINE AUTO 1 /HPF (0-3); SPECIFIC GRAVITY URINE AUTO 1.019 (1.002-1.035); SQUAMOUS EPITHELIAL CELL UR AU 6 /HPF (0-6); UROBILINOGEN, URINE AUTO 0.2 mg/dL (0.0-2.0); WBC, URINE AUTO 0 /HPF (0-3)
== END ==
LOC: M SMT 16:58
PROVIDERS: ATTEND Nurse Practitioner Family
DX: R30.0 Dysuria (principal)